=== PATIENT | male | born 1965 | race African-American/Black ===

== ENCOUNTER 2017-09-23 12:41 | Outpatient (CLI) | payer MEDICARE ==
--- NOTE | 2017-09-23 18:11 | ULT ---
BILATERAL UPPER EXTREMITY VENOUS DOPPLER ULTRASOUND FOR DIALYSIS ACCESS: 09/23/17 HISTORY: Renal failure. FINDINGS: Exam is limited. The left basilic and cephalic veins are not visualized. BRACHIAL ARTERY: 3.5 mm RADIAL ARTERY: 1.8 mm ULNA ARTERY: 1.8 mm RIGHT UPPER EXTREMITY The right cephalic vein is not visualized in the proximal arm. BRACHIAL ARTERY: 4.5 mm RADIAL ARTERY: 2 mm ULNAR ARTERY: 1.2 mm CEPHALIC VEIN Mid Arm: 1.5 mm Distal Arm: 1.3 mm Antecubital Fossa: 1.1 mm The right cephalic vein is not visualized in the forearm. BASILIC VEIN The right basilic vein is not visualized in the proximal and mid arm and in the entire forearm. Distal Arm: 1.4 mm Antecubital Fossa: 1.4 mm POS: [facility]
== END 2017-09-23 12:42 | disposition home or self-care (01) ==
LOC: ULT 12:41
PROVIDERS: ATTEND Internal Medicine Nephrology
DX: Z01.818 Encounter for other preprocedural examination (principal)
CPT/HCPCS: 93970; G0365

== ENCOUNTER 2017-11-26 09:54 | Day surgery (SDC) | payer MEDICARE ==
[~2017-11-26 09:54] MED LIST: Bupivacaine HCl 0.5%/Epinephrine 1:200,000/PF 30 ml Vial ONE
[2017-11-26 10:27] LABS: #Basophils 0.1 thou/uL (0.0-0.2); #Eosinphils 0.2 thou/uL (0.0-0.7); #Lymphocytes 2.6 thou/uL (1.20-3.40); #Monocytes 0.5 thou/uL (0.11-0.59); #Neutrophils 3.5 thou/uL (1.40-6.50); %Basophils 0.9 % (0.0-1.0); %Eosinophils 2.7 % (0.0-10.0); %Lymphocytes 37.8 % (21.0-51.0); %Monocytes 7.6 % (0.0-10.0); Hemoglobin 11.6 g/dL (14.0-18.0); Mean Corpuscular HGB CONC 31.5 g/dL (32.0-36.0); Mean Corpuscular Hemoglobin 27.1 pg (27.0-31.0); Mean Corpuscular Volume 86.1 fl (80.0-94.0); Mean Platelet Volume 8.7 fL (7.4-10.4); Platelet Count 253 thou/uL (130-400); RBC Distribution Width 16.4 % (11.5-14.5); Red Blood Cell (RBC) Count 4.29 mill/uL (4.70-6.10); White Blood Cell (WBC) Count 6.8 thou/uL (4.8-10.8)
[2017-11-26] MEDS ORDERED: Fentanyl 100 MCG/2 ML VIAL ONE (10:35)
[2017-11-26 10:56] LABS: Anion Gap 14 mmol/L (10-20); BUN (Urea Nitrogen) 22 mg/dL (8.9-20.6); Calc. Creatinine Clearance 0 mL/min (70-130); Calcium 9.3 mg/dL (7.8-10.44); Carbon Dioxide 27 mmol/L (22-29); Chloride 99 mmol/L (98-107); Estimated GFR-MDRD 11; Glucose 82 mg/dL (70-105); Potassium 3.8 mmol/L (3.5-5.1); Sodium 136 mmol/L (136-145)
[2017-11-26] MEDS ORDERED: CEFAZOLIN/Water 2 GM/20 ML SYRINGE ONE (11:00)
[2017-11-26] MEDS ORDERED: Bupivacaine/Epinephrine 0.25% 30 ML VIAL ONE (11:45)
[2017-11-26] MEDS ORDERED: Heparin 5,000 UNITS/ML VIAL ONE (11:45)
[2017-11-26] MEDS ORDERED: Protamine Sulfate 50 MG/5 ML VIAL ONE (11:45)
[2017-11-26] MEDS ORDERED: Ioversol 68 % 50 ML VIAL ONE (11:45)
--- NOTE | 2017-11-26 14:19 | PDOC.OP ---
Operative Note - Operative Note Operative Note: PROCEDURE: Right AV brachiobasilic fistula SURGEON: Ron Johansen M.D. DATE OF PROCEDURE: 11/26/2017 PREOPERATIVE DIAGNOSIS: Renal failure POSTOPERATIVE DIAGNOSIS: Renal failure HISTORY: Patient with renal failure currently using a tunneled hemodialysis catheter who requires permanent access. No lower arm veins were seen on preoperative ultrasound. PROCEDURE IN DETAIL: After informed consent was obtained and appropriate preoperative antibiotics administered, the patient was taken to the operating room and placed in the supine position and monitored anesthesia care was administered. A preoperative block had been performed by Anesthesia and the adequacy of block was confirmed. The arm was prepped and draped in a standard sterile fashion and carefully examined by ultrasound. No adequate veins could be located in the lower arm. In the upper arm the patient had a good caliber cephalic vein but this became sclerotic 6 cm above the antecubital fossa. The basilic vein appeared to be of adequate diameter throughout and there was enough length below the elbow that it was felt the vein could be mobilized over to the artery. Therefore an incision made lateral to the antecubital fossa between the basilic vein and brachial artery. Dissection was carried out to the basilic vein, which appeared to be of adequate quality and caliber to support a fistula. This was dissected free circumferentially for a distance long enough to mobilize over to the brachial artery, and was then ligated and divided distally, and spatulated with Baptiste scissors. This was serially interrogated with cardiac dilators and easily accepted up to 3.5 mm cardiac dilator. This was flushed with heparinized saline and clamped with a bulldog clamp. The brachial artery was then dissected free and found to be of adequate quality and caliber to support a fistula. Heparin was administered systemically and allowed to circulate for 3 minutes following which the artery was clamped proximally and distally. An anterior arteriotomy was created with an 11 blade scalpel and extended with Baptiste scissors. An end-to-side anastomosis created with a running 6-0 Prolene suture with excellent technical result. Prior to tying down the anastomosis, the inflow was released to flush the anastomosis. Flow was established first through the fistula and then through the distal brachial artery. Hemostasis at the site was confirmed, and an excellent thrill was felt in the basilic vein outflow and an excellent bruit was heard with Doppler as well up to the axilla. Hemostasis at the operative site was again confirmed and the patient had an excellent palpable radial pulse. The incision was closed with a running 3-0 subcutaneous and running 4-0 subcuticular Monocryl sutures. Dermabond dressings were placed and the patient was taken to the recovery room in good condition. Estimated blood loss was minimal. There were no complications. There were no specimens.
[2017-11-26] MEDS ORDERED: PHENYLEPHRINE-NS 100 MCG/ML 10 ML SYRINGE ONE (14:29)
[2017-11-26] MEDS ORDERED: PROPOFOL 200 MG/20 ML VIAL ONE (14:29)
[2017-11-26] MEDS ORDERED: Heparin 10,000 UNITS/ 10 ML VIAL ONE ×3 (14:29→15:12)
[2017-11-26] MEDS ORDERED: Sodium Chloride 0.9% 10 ML ONE (15:12)
== END 2017-11-26 15:38 | disposition home or self-care (01) ==
LOC: SDC 09:54
PROVIDERS: ATTEND Surgery
PROC: 03170ZD Bypass Right Brachial Artery to Upper Arm Vein, Open Approach (ICD-10-PCS; principal; 2017-11-26)
DX: I12.0 Hypertensive chronic kidney disease with stage 5 chronic kidney disease or end stage renal disease (principal); N18.6 End stage renal disease; I42.9 Cardiomyopathy, unspecified; Z79.899 Other long term (current) drug therapy; Z98.890 Other specified postprocedural states
CPT/HCPCS: 80048; 85025; 93005; 93010; J0670; J1644; J2704; J2720; J3010; Q9967

== ENCOUNTER 2018-01-14 10:27 | Day surgery (SDC) | payer MEDICARE ==
[2018-01-13 12:43] VITALS: BMI 15.5
[2018-01-14] MEDS ORDERED: Protamine Sulfate 50 MG/5 ML VIAL ONE (10:45)
[2018-01-14] MEDS ORDERED: Bupivacaine/Epinephrine 0.25% 30 ML VIAL ONE (10:45)
[2018-01-14] MEDS ORDERED: Heparin 5,000 UNITS/ML VIAL ONE (10:45)
[2018-01-14] MEDS ORDERED: Midazolam HCl 2 mg/2 ml Vial ONE (10:53)
[2018-01-14] MEDS ORDERED: Fentanyl 100 MCG/2 ML VIAL ONE (10:53)
[2018-01-14] MEDS ORDERED: Propofol 500 MG/50 ML VIAL ONE (10:54)
[2018-01-14] MEDS ORDERED: Ketamine 50 MG/ML VIAL ONE (10:54)
[2018-01-14 10:58] LABS: #Basophils 0.1 thou/uL (0.0-0.2); #Eosinphils 0.2 thou/uL (0.0-0.7); #Lymphocytes 2.1 thou/uL (1.20-3.40); #Monocytes 0.4 thou/uL (0.11-0.59); %Basophils 1.4 % (0.0-1.0); %Eosinophils 3.1 % (0.0-10.0); %Lymphocytes 37.1 % (21.0-51.0); %Monocytes 6.3 % (0.0-10.0); %Neutrophils 52.1 % (42.0-75.0); Hemoglobin 11.9 g/dL (14.0-18.0); Mean Corpuscular HGB CONC 31.2 g/dL (32.0-36.0); Mean Corpuscular Hemoglobin 27.1 pg (27.0-31.0); Mean Corpuscular Volume 86.9 fL (78.0-98.0); Mean Platelet Volume 9.4 fL (7.4-10.4); Platelet Count 203 thou/uL (130-400); RBC Distribution Width 14.8 % (11.5-14.5); White Blood Cell (WBC) Count 5.7 thou/uL (4.8-10.8)
[2018-01-14] MEDS ORDERED: CEFAZOLIN/Water 2 GM/20 ML SYRINGE ONE (11:03)
[2018-01-14 11:18] LABS: Anion Gap 15 mmol/L (10-20); BUN (Urea Nitrogen) 37 mg/dL (8.9-20.6); Calc. Creatinine Clearance 9 mL/min (70-130); Calcium 9.2 mg/dL (7.8-10.44); Carbon Dioxide 28 mmol/L (22-29); Chloride 101 mmol/L (98-107); Estimated GFR-MDRD 10; Glucose 90 mg/dL (70-105); Potassium 4.1 mmol/L (3.5-5.1); Sodium 140 mmol/L (136-145)
[2018-01-14] MEDS ORDERED: Bupivacaine HCl 0.5%/Epinephrine 1:200,000/PF 30 ml Vial ONE (14:52)
[2018-01-14] MEDS ORDERED: Heparin 10,000 UNITS/ 10 ML VIAL ONE ×2 (15:56→16:44)
[2018-01-14] MEDS ORDERED: PROPOFOL 200 MG/20 ML VIAL ONE (15:56)
--- NOTE | 2018-01-15 10:23 | OP ---
DATE OF PROCEDURE: 01/14/2018 PROCEDURE: Right brachial axillary AV fistula on 01/14/2018. PREOPERATIVE DIAGNOSIS: End-stage renal failure. POSTOPERATIVE DIAGNOSIS: End-stage renal failure. HISTORY: Mr. Nichols is a 52-year-old man with end-stage renal failure. He has a failed right brachi obasilic fistula, so the recommendation was made to proceed with right AV graft. DESCRIPTION OF PROCEDURE: After informed consent was obtained and appropriate preoperative antibioti cs administered, the patient was taken to the operating room. He was placed in the supine position a nd monitored anesthesia care was administered. A preoperative supraclavicular block had been placed and adequacy of the block was confirmed. On examination, the patient's upper arm cephalic vein appea red to be of good caliber and the antecubital area, so a sterile ultrasound was used to examine this; however, the vein became sclerotic in the mid section. So the decision was made to proceed with bra chial axillary graft placement as planned. An incision was made in the antecubital area overlying th e brachial artery just proximal to his previous graft location. Dissection was carried down through the subcutaneous tissues to the brachial artery, which was dissected free circumferentially just prox imal to the level of his previous graft. This appeared to be of good caliber and quality. Vessel lo ops were placed. Attention was then turned to the axillary vein. Dissection was carried down throug h the subcutaneous tissues overlying the palpable pulse and the axillary vein was identified. This w as of excellent caliber and quality and vessel loops were placed proximally and distally. A Azalea-Wi ck tunneler with a 12 mm tip was then brought up through the subcutaneous tissues just inferior to th e dermis from the antecubital to the axillary incisions. The 12 mm tip was exchanged for a 6 mm tip and the tapered end of a 4-7 mm Agustin graft was secured to the Azalea-Wick tunneler and brought down through the subcutaneous tunnel, taking care not to twist the graft. This was cut to the appropriate length with both ends angled for a wide anastomosis. The axillary vein was occluded proximally and distally with the vessel loops. An anterior venotomy created and extended with Baptiste scissors. The vein was flushed proximally and distally with heparinized saline and reoccluded with the vessel loops . An end-to-side anastomosis was created with a running 6-0 Prolene suture with excellent technical result. The venous inflow was released, flushing the graft following which venous outflow was restor ed. The graft was flushed with heparinized saline and clamped near the anastomosis to the axillary v ein. Attention was then turned to the arterial anastomosis. Heparin was administered systemically a nd allowed to circulate for 3 minutes following which the brachial artery was clamped proximally and distally. An anterior arteriotomy was created and then extended with Baptiste scissors and an end-to-si de anastomosis created with a running 6-0 Prolene suture with excellent technical result. Prior to t genie down the anastomosis, the venous inflow was released allowing back flushing of the anastomosis, the anastomosis was then secured and arterial inflow released establishing flow through the fistula f ollowing which distal flow through the arm was restored by releasing the distal brachial clamp. Ther e were some minor needle hole bleeding which rapidly stopped and there was an excellent thrill in the graft. Distal pulses and the hand were also present and hemostasis was obtained on both wounds usin g Bovie electrocautery. Surgicel was placed as a precaution into the subcutaneous tunnel and around the anastomosis following which both incisions were closed with 3-0 subcutaneous and 4-0 subcuticular sutures. Dermabond was placed and the patient was taken to recovery in good condition. Estimated b lood loss was minimal. There were no complications. There were no specimens.
== END 2018-01-14 17:05 | disposition home or self-care (01) ==
LOC: SDC 10:27
PROVIDERS: ATTEND Surgery
PROC: 03170JD Bypass Right Brachial Artery to Upper Arm Vein with Synthetic Substitute, Open Approach (ICD-10-PCS; principal; 2018-01-14)
DX: I12.0 Hypertensive chronic kidney disease with stage 5 chronic kidney disease or end stage renal disease (principal); N18.6 End stage renal disease; I42.9 Cardiomyopathy, unspecified; Z79.899 Other long term (current) drug therapy; Z79.82 Long term (current) use of aspirin
CPT/HCPCS: 36830; 80048; 85025; L8670; J0670; J1644; J2250; J2704; J2720; J3010

== ENCOUNTER 2018-02-03 09:05 | Day surgery (SDC) | payer MEDICARE ==
[2018-02-02 15:45] VITALS: BMI 16.9
[2018-02-03 10:53] LABS: Vancomycin, Random 7.4 ug/mL (See Comment)
[2018-02-03 10:55] LABS: ALT (SGPT) 15 U/L (8-55); AST (SGOT) 14 U/L (5-34); Albumin 3.8 g/dL (3.5-5.0); Alkaline Phosphatase 141 U/L (40-150); Anion Gap 17 mmol/L (10-20); BUN (Urea Nitrogen) 33 mg/dL (8.9-20.6); Bilirubin, Total 0.3 mg/dL (0.2-1.2); Calc. Creatinine Clearance 8 mL/min (70-130); Carbon Dioxide 28 mmol/L (22-29); Chloride 98 mmol/L (98-107); Estimated GFR-MDRD 8; Globulin 4.1 g/dL (2.4-3.5); Glucose 89 mg/dL (70-105); Potassium 5.5 mmol/L (3.5-5.1); Protein, Total 7.9 g/dL (6.0-8.3); Sodium 137 mmol/L (136-145)
[2018-02-03] MEDS ORDERED: CEFAZOLIN/Water 2 GM/20 ML SYRINGE ONE (11:01)
[2018-02-03 11:02] LABS: #Eosinphils 0.3 thou/uL (0.0-0.7); #Lymphocytes 2.3 thou/uL (1.20-3.40); #Monocytes 0.5 thou/uL (0.11-0.59); #Neutrophils 3.2 thou/uL (1.40-6.50); %Basophils 0.1 % (0.0-1.0); %Eosinophils 4.3 % (0.0-10.0); %Lymphocytes 36.4 % (21.0-51.0); %Monocytes 8.2 % (0.0-10.0); %Neutrophils 51.1 % (42.0-75.0); Hemoglobin 12.4 g/dL (14.0-18.0); Mean Corpuscular HGB CONC 31.5 g/dL (32.0-36.0); Mean Corpuscular Hemoglobin 27.6 pg (27.0-31.0); Mean Corpuscular Volume 87.7 fL (78.0-98.0); Mean Platelet Volume 8.8 fL (7.4-10.4); Platelet Count 228 thou/uL (130-400); RBC Distribution Width 15.4 % (11.5-14.5); Red Blood Cell (RBC) Count 4.47 mill/uL (4.70-6.10); White Blood Cell (WBC) Count 6.3 thou/uL (4.8-10.8)
[2018-02-03] MEDS ORDERED: Vancomycin HCl 750 MG in Sodium Chloride 0.9% 250 ML 250 ML IVPB SCH (11:15)
[2018-02-03] MEDS ORDERED: Sodium Chloride 0.9% 10 ML ONE (11:23)
[2018-02-03] MEDS ORDERED: Bupivacaine HCl 0.25%/Epi 0.0005/PF 10 ML VIAL FS ONE (11:23)
[2018-02-03] MEDS ORDERED: Heparin 10,000 UNITS/1 ML VIAL ONE (11:23)
[2018-02-03] MEDS ORDERED: Lidocaine 2% 10 ML INJ ONE (11:23)
[2018-02-03] MEDS ORDERED: Fentanyl 100 MCG/2 ML VIAL ONE (11:25)
[2018-02-03] MEDS ORDERED: Midazolam HCl 2 mg/2 ml Vial ONE (11:25)
[2018-02-03] MEDS ORDERED: PROPOFOL 20 ML ONE (11:25)
--- NOTE | 2018-02-03 13:09 | RAD ---
AP CHEST: History: Status post hemodialysis catheter placement. Date: 02-03-18 Comparison: 03-29-17 FINDINGS: AP chest demonstrates placement of a left jugular hemodialysis catheter, distal tip overlying the sup erior vena cava. The lungs are well aerated. No evidence of hemo or pneumothorax seen. No acute intra thoracic abnormality is seen. IMPRESSION: Placement of a left jugular hemodialysis catheter. POS: [facility]
[2018-02-03] MEDS ORDERED: hydrALAZINE 20 MG/ML VIAL ONE (13:14)
--- NOTE | 2018-02-05 18:53 | PDOC.OP ---
Operative Note - Operative Note Operative Note: PROCEDURE: Placement of left internal jugular tunneled hemodialysis catheter with ultrasound and fluoroscopic guidance. SURGEON: Ron Johansen M.D. DATE OF PROCEDURE: 02/03/2018 PREOPERATIVE DIAGNOSIS: Chronic renal failure. POSTOPERATIVE DIAGNOSIS: Chronic renal failure. HISTORY: Patient with positive blood cultures attributed to his right IJ hemodialysis catheter. This was removed in the clinic. 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 PROCEDURE: After informed consent was obtained and appropriate preoperative antibiotics were administered, the patient was taken to the Operating Room, placed in the supine position and monitored anesthesia care was administered. The neck and chest were prepped and draped in a standard sterile fashion and the patient placed in Trendelenburg position. A sterile ultrasound probe was used to identify the patent compressible left IJ vein which was accessed under direct ultrasound guidance. A wire was threaded through the needle and confirmed by ultrasound to be within the patent compressible vessel with the tip in the vena cava by fluoroscopy. Local anesthesia was infused to the skin and subcutaneous tissues of the leftt neck and chest. An infraclavicular incision was made and a catheter tunneled from the infraclavicular to the left IJ access site. The left IJ was sequentially dilated over the wire following which a dilator and sheath were placed over the wire and the dilator and wire removed leaving the sheath in place. The catheter was tunneled through the sheath which was then split and removed leaving the catheter in place. This was confirmed by fluoroscopy to be in good position in the superior vena cava with no kinking of the course of the catheter. Both ports easily aspirated dark venous nonpulsatile blood and easily flushed without resistance. Heparin was instilled to the quantity specified on the hub, and the hub was secured to the skin with 3-0 nylon sutures. The skin incision at the neck was closed in two layers with 4-0 Monocryl suture and Dermabond dressings were placed. The skin at the exit site was snugged up around the catheter with 4-0 Monocryl suture and Dermabond was placed there as well. Once the Dermabond was dry, a Biopatch and Tegaderm dressing was placed at the exit site. The patient was taken to Recovery in good condition. Estimated blood loss was minimal. There were no complications. There were no specimens.
== END 2018-02-03 14:00 | disposition home or self-care (01) ==
LOC: SDC 09:05
PROVIDERS: ATTEND Surgery
PROC: 02HV33Z Insertion of Infusion Device into Superior Vena Cava, Percutaneous Approach (ICD-10-PCS; principal; 2018-02-03)
PROC: B518YZA Fluoroscopy of Superior Vena Cava using Other Contrast, Guidance (ICD-10-PCS; 2018-02-03)
PROC: 02HV33Z Insertion of Infusion Device into Superior Vena Cava, Percutaneous Approach (ICD-10-PCS; 2018-02-03)
PROC: B548ZZA Ultrasonography of Superior Vena Cava, Guidance (ICD-10-PCS; 2018-02-03)
DX: I12.0 Hypertensive chronic kidney disease with stage 5 chronic kidney disease or end stage renal disease (principal); N18.6 End stage renal disease; I42.9 Cardiomyopathy, unspecified; Z79.899 Other long term (current) drug therapy; Z79.82 Long term (current) use of aspirin
CPT/HCPCS: 36558; 71045; 76000; 80053; 80202; 85025; C1752; C1769; 36416; 96374; A4216; J0360; J1644; J2250; J2704; J3010; J3370; J7050

== ENCOUNTER 2018-02-17 08:24 | Inpatient (IN) | payer MEDICARE ==
--- NOTE | 2018-02-17 08:42 | CT ---
HEAD CT WITHOUT CONTRAST: Date: 02/17/18 COMPARISON: 03/28/17. HISTORY: Previous left cerebral infarct. Seizure. Patient not following commands. FINDINGS: Malacic and gliotic change involving the left cerebrum, compatible with previous infarct. The overall degree and distribution has not changed and involve the left centrum semiovale, left cortez radiata, and left external capsule. Additional white matter hypodensities are identified, likely due to chron ic small vessel ischemic change. Stable configuration of the ventricular system. No parenchymal hemor rhage. No extra-axial hematoma. No midline shift. Patent basilar cisterns. Right cerebral cortical gr ay-white matter differentiation is preserved. Calvarium is intact. Adequate aeration of the sinuses a nd mastoid air cells. The left caudate nucleus and thalamus appear to be somewhat diminutive and are presumed to be sequelae of remote insult. IMPRESSION: 1. No acute intracranial process. 2. Findings compatible with remote left cerebral infarction, unchanged. Results of study discussed with Dr. Caraballo on 02/17/18 at 0835 hours. CODE CR. POS: [facility]
[2018-02-17 09:31] LABS: #Eosinphils 0.1 thou/uL (0.0-0.7); #Lymphocytes 1.1 thou/uL (1.20-3.40); #Monocytes 0.4 thou/uL (0.11-0.59); #Neutrophils 3.1 thou/uL (1.40-6.50); %Basophils 0.8 % (0.0-1.0); %Eosinophils 1.7 % (0.0-10.0); %Lymphocytes 23.4 % (21.0-51.0); %Neutrophils 65.1 % (42.0-75.0); Hemoglobin 10.9 g/dL (14.0-18.0); Mean Corpuscular HGB CONC 30.8 g/dL (32.0-36.0); Mean Corpuscular Hemoglobin 27.3 pg (27.0-31.0); Mean Corpuscular Volume 88.8 fL (78.0-98.0); Mean Platelet Volume 9.7 fL (7.4-10.4); Platelet Count 149 thou/uL (130-400); RBC Distribution Width 15.3 % (11.5-14.5); Red Blood Cell (RBC) Count 3.98 mill/uL (4.70-6.10); White Blood Cell (WBC) Count 4.8 thou/uL (4.8-10.8)
[2018-02-17 09:34] LABS: INR-International Normal Ratio 1.1; PTT 26.2 SEC (22.9-36.1); Prothrombin Time 13.8 SEC (12.0-14.7)
[2018-02-17 09:50] LABS: ALT (SGPT) 12 U/L (8-55); AST (SGOT) 13 U/L (5-34); Albumin 3.5 g/dL (3.5-5.0); Alkaline Phosphatase 141 U/L (40-150); Anion Gap 18 mmol/L (10-20); BUN (Urea Nitrogen) 20 mg/dL (8.9-20.6); Bilirubin, Total 0.3 mg/dL (0.2-1.2); Calc. Creatinine Clearance 0 mL/min (70-130); Calcium 9.2 mg/dL (7.8-10.44); Carbon Dioxide 27 mmol/L (22-29); Chloride 100 mmol/L (98-107); Estimated GFR-MDRD 9; Globulin 3.5 g/dL (2.4-3.5); Glucose 107 mg/dL (70-105); Potassium 4.2 mmol/L (3.5-5.1); Sodium 141 mmol/L (136-145)
--- NOTE | 2018-02-17 10:01 | RAD ---
CHEST ONE VIEW: History: Dialysis patient. Stroke alert. Comparison: 01-24-18 FINDINGS: Stable right sided hemosplit dialysis catheter. Normal cardiac silhouette. Lungs are pleural spaces a re clear. No pneumothorax or osseous abnormality. IMPRESSION: No acute cardiopulmonary process. POS: [facility]
--- NOTE | 2018-02-17 10:02 | CT ---
CT ANGIOGRAM OF HEAD CT ANGIOGRAM OF NECK: Date: 02/17/18 HISTORY: Seizure. Altered mental status. Evaluate for stroke. COMPARISON: None. TECHNIQUE: CT angiogram of the head and neck are performed in the axial plane. Three-dimensional reformatted ami ges are submitted for interpretation. FINDINGS: There appears to be preservation of cortical mathias-white mattered differentiation on postcontrast head CT. Changes of remote left cerebral infarct are again noted. Bilateral ocular lenses are appropriately located. Both globes are intact. Retrobulbar fat is preserv ed. Symmetric attenuation of the optic nerves and ocular rectus muscles. Aerodigestive tract is patent. There is mild narrowing of the hypopharynx, likely due to lymphoid tis golden hyperplasia. Discrete mass is not appreciated. Evaluation is limited by dental amalgam artifact. The midline fatty raphe of the tongue does appear to be preserved. The supraglottic, glottic, and subglottic larynx are unremarkable. Symmetric attenuation of the sternocleidomastoid muscles, parotid glands, and submandibular gland. Unremarkable thyroid gland. Calcifications in right thyroid lobe are noted. No evidence of lymphadenopathy by size criteria. There is no prevertebral soft tissue swelling. Cervical spine vertebral body height is maintained. No fracture. Straightening of normal cervical lordosis is presumed to be positional. Upper mediastinum and lung apices are unremarkable. Thoracic aorta has an overall normal caliber. No periaortic fat stranding. Right Carotid: The origin of the right carotid artery is unremarkable. The right common carotid artery, carotid bifu rcation, and internal carotid artery have appropriate enhancement and luminal diameter. No significan t stenosis based upon NASCET criteria. Left Carotid: The origin of the left carotid artery is unremarkable. The left common carotid artery, carotid bifurc ation, and internal carotid artery have appropriate enhancement and luminal diameter. No significant stenosis based upon NASCET criteria. Bilateral subclavian arteries are unremarkable. Cervical vertebral arteries are patent throughout their course in the neck. The left vertebral artery is dominant. CT ANGIOGRAM HEAD: There is symmetric enhancement and luminal diameter of the distal cervical and intracranial internal carotid arteries. Anterior Circulation: Congenitally diminutive right A1 segment. Left A1 segment is unremarkable. Both A2 segments have appr opriate enhancement proximally. Left and right M1 segments are unremarkable. Symmetric enhancement an d luminal diameter. Proximal MCA branches are essentially unremarkable. The overall degree of branche s in the left MCA distribution is slightly less than the contralateral side, compatible with history of remote infarct. Posterior Circulation: Right PICA artery origin is limited in evaluation. Left PICA artery origin is unremarkable. Both vert ebral arteries supply a normal caliber basilar artery. The left and right P1 segments have symmetric enhancement and luminal diameter. IMPRESSION: Unremarkable CT angiogram of head and neck. No evidence of significant stenosis based upon NASCET cri teria. Results of study discussed with Dr. Caraballo on 02/17/17 at 0907 hours. CODE CR. POS: [facility]
[2018-02-17 10:04] LABS: CKMB 0.3 ng/mL (0-6.6); Troponin I Less than 0.010 ng/mL (< 0.028)
[2018-02-17] MEDS ORDERED: Aspirin 300 MG Suppository ONE (10:22)
[2018-02-17] MEDS ORDERED: ISOVUE-370 76%-LOCM 1 ML ONE (11:05)
[2018-02-17] MEDS ORDERED: Ondansetron HCl/PF 4 MG/2 ML Vial ONE (11:15)
[2018-02-17] MEDS ORDERED: Nitroglycerin 0.4 MG TAB (25 Tab Bottle) PO PRN (11:22)
[2018-02-17] MEDS ORDERED: Acetaminophen 325 MG TAB PO PRN (11:22)
[2018-02-17] MEDS ORDERED: Calcium Carbonate 500 MG ChewTAB PO PRN (11:22)
[2018-02-17] MEDS ORDERED: Ondansetron ODT 4 MG TAB PO PRN (11:22)
[2018-02-17] MEDS ORDERED: Senokot 8.6 MG TAB PO PRN (11:22)
[2018-02-17] MEDS ORDERED: Lorazepam 2 MG/ML VIAL SLOW IVP PRN (11:26)
[2018-02-17] MEDS ORDERED: hydrALAZINE 20 MG/ML VIAL SLOW IVP PRN (11:26)
[2018-02-17] MEDS ORDERED: Loratadine 10 MG TAB PO PRN (11:26)
--- NOTE | 2018-02-17 11:37 | HP ---
DATE OF ADMISSION: 02/17/2018 PRIMARY CARE PHYSICIAN: Dr. Kyle. PRIMARY SENIOR SAS PROGRAMMER: Dr. Roland Patel. PRIMARY NEUROLOGIST: None. CHIEF COMPLAINT: Altered mentation. 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 History obtained from the family at the bedside. Please note that the family members who were presen t now were not present at onset of symptoms. The patient was found to have altered mentation along with seizure-like activity. No details availab le. There was no tongue biting or incontinence reported. He was not following commands. He was non verbal. No new focal deficit was reported. No fever, chills, cough, shortness of breath, wheezing, skin rash, dysuria, hematuria or urgency reported. In the emergency room, initial vital signs showed temperature 98.3, respiration of 17, pulse rate of 85, blood pressure 176/106 with O2 saturation 98% on room air. [facility] scan of the brain was negative for acute findings. CT angiogram of the brain was ne gative. PAST MEDICAL HISTORY: 1. End-stage renal disease, on hemodialysis Thursday, Thursday, Thursday per Dr. Roland Patel. 2. Seizure disorder, currently on Dilantin and Keppra. 3. History of left middle cerebral artery distribution cerebrovascular accident with hemorrhagic con version. The patient also had a PEG tube placed at one time that has been discontinued. 4. History of encephalopathy secondary to urinary tract infection in 03/2017. PAST SURGICAL HISTORY: 1. Dialysis catheter. 2. Recent right arm fistula. 3. PEG tube placement with subsequent removal. 4. Cystoscopy for urethral stricture and bilateral hydronephrosis in 2013. ALLERGIES: No known drug allergies. CURRENT HOME MEDICATIONS: Confirmed with the medication bottles at the bedside. Keppra 500 mg twice a day, Renvela 3 tablets 3 times a day, Dilantin 300 mg daily, gabapentin 100 mg 3 times daily, Proz ac 20 mg daily, baclofen 10 mg 3 times daily. SOCIAL HISTORY: Patient currently lives at home with his family. He is able to ambulate with the he lp of a walker with some assistance. He is able to swallow regular consistencies. He make small david unt of urine. He is able to recognize his family members and communicate well per family report. FAMILY HISTORY: Positive for hypertension. REVIEW OF SYSTEMS: Cannot be obtained from the patient due to current cognitive status. PHYSICAL EXAMINATION: VITAL SIGNS: As discussed above. GENERAL: A 52-year-old male in no apparent distress. Resting comfortably. Opens eyes to commands; however, does not follow direction. HEENT: Head is atraumatic, normocephalic. Sclerae are anicteric. Patient did not let me examine hi s pupils. He also did not open his mouth. NECK: Supple, no JVD, no carotid bruit. LUNGS: Clear to auscultation bilaterally, no wheezing, rales or rhonchi. HEART: S1, S2 present. Regular rate and rhythm. No heaves or pulsation. ABDOMEN: Soft, nontender, bowel sounds present. EXTREMITIES: No edema or calf tenderness. There is right upper extremity edema which is chronic per family report. SKIN: Warm and dry. LYMPH NODES: No palpable lymph nodes in the neck. NEUROLOGIC: Examination could not be reliably done due to current mentation. The patient has flacci d weakness on the right upper and right lower extremity. There was a normal tone on the left. Refle xes were hyper on the right and hypo on the left. Sensory examination could not be done. Gait was n ot assessed. PSYCHIATRIC: As discussed above. PERIPHERAL VASCULAR: Radial pulses palpable bilaterally. MUSCULOSKELETAL: No joint swelling or tenderness. LABORATORY FINDINGS: 1. CBC showed WBC 4.8 with hemoglobin 10.9, hematocrit 35.3 and platelet 149. 2. PT, INR, PTT normal range. 3. Chemistry showed sodium 141, potassium 4.2, chloride 100, bicarb 27, BUN 20, creatinine 7.6. 4. Troponin was negative. IMAGING DATA: Chest x-ray by my review was negative for infiltrate. EKG by my review showed sinus r hythm without significant ST-T wave changes. CT scan of the brain by my review was negative for acut e CVA. IMPRESSION: 1. Toxic metabolic encephalopathy of unclear etiology. Possibilities include seizure versus acute C [facility]. We will rule out infectious etiology. Patient was shaking at the time of onset of his symptoms per family report. 2. End-stage renal disease on hemodialysis. 3. History of left middle cerebral artery distribution cerebrovascular accident with hemorrhagic con version with residual right-sided weakness. Please note that patient is not on low dose aspirin. 4. Seizure disorder. PLAN: Patient will be monitored in the stroke unit. We will get frequent neuro checks. Aspirin jeffrey l be given rectally. We will consult Neurology, Dr. Wild. We will check Dilantin and Keppra level a nd resume them accordingly. We will consult Dr. Roland Patel for maintenance hemodialysis. We jeffrey l resume his medications once able to tolerate p.o. Plan of care was discussed with the family in detail and they stated understanding.
[2018-02-17] MEDS: Sodium Chloride 0.9% 1,000 ML IV SCH (12:24)
[2018-02-17] MEDS ORDERED: Heparin 10,000 UNITS/ 10 ML VIAL ONE (15:58)
[2018-02-17] MEDS ORDERED: Fosphenytoin Sodium 750 MG in Sodium Chloride 0.9% 50 ML IVPB SCH (17:00)
[2018-02-17] MEDS ORDERED: Famotidine/PF 20 mg/2ml Vial SLOW IVP SCH (21:00)
[2018-02-17] MEDS: Docusate 100 MG CAP PO SCH (22:10)
[2018-02-17] MEDS: Atorvastatin Calcium 10 MG TAB PO SCH (22:10)
[2018-02-17] MEDS: Acetaminophen 650 MG Suppository PR PRN (22:51)
[2018-02-17] MEDS: Ondansetron HCl/PF 4 MG/2 ML Vial IVP PRN (22:51)
[2018-02-17] MEDS: Heparin 5,000 UNITS/ML VIAL SC SCH (22:52)
--- NOTE | 2018-02-18 05:02 | CON ---
DATE OF CONSULTATION: 02/17/2018 REFERRING PROVIDER: Dr. Maverick Tom. REASON FOR CONSULTATION: Altered mental status. HISTORY OF PRESENT ILLNESS: Mr. Nichols is a 52-year-old -[place] male who has been consulted for evaluation of altered mental status. History is very limited as patient is unable to provide an d there are no family member present at bedside, thus most of the history is obtained from the patien t's dictated H&P note. Apparently, the patient has a history of left middle cerebral artery distribu tion ischemic infarct with hemorrhagic conversion with residual right-sided weakness, seizure disorde r, end-stage renal disease on dialysis who presented with the changes in mentation. Apparently, the patient's family had brought him. He was found to have altered mentation with a questionable seizure -like activity. He has been admitted for further workup of this change in mentation. Past medical history, past surgical history, family history, social history, current medications, all ergies are reviewed there as dictated H&P note done by Dr. Maverick Tom. REVIEW OF SYSTEMS: Unable to perform. PHYSICAL EXAMINATION: VITAL SIGNS: Blood pressure 165/96, pulse of 81, temperature of 98, respirations 16, O2 sats 96% on room air. GENERAL: Thin-appearing -[place]ian male resting in bed in no apparent distress. RESPIRATORY: Clear to auscultation bilaterally. CARDIOVASCULAR: Regular rate and rhythm. NEUROLOGIC: Mental status: The patient is awake and alert, but nonresponsive. He does not follow a ny commands. He does not converse. Cranial nerves: Pupils are 3 mm and reactive. Visual lerma ap pear full to threat. Face is symmetric. Motor exam showed normal tone and bulk. He withdraws to pa in in both upper and lower extremities; however, he does not follow any commands and does not partici [place] in the strength evaluation. LABORATORY DATA: Reviewed, which included CBC, coag panel, CMP, and Dilantin level and Keppra level. Hemoglobin of 10.9, hematocrit of 35.3 and BUN of 20. Creatinine of 7.6. Dilantin level of 6.7. Keppra level of 24.6, otherwise unremarkable. IMAGING STUDIES: CT head without contrast was reviewed, which showed no acute intracranial abnormali ties. CT angiogram of the head and neck were reviewed, which showed no acute intracranial or extracr anial vascular abnormality. IMPRESSION: 1. Altered mental status, likely toxic metabolic encephalopathy. 2. Possible seizure. 3. Prior left middle cerebral artery distribution ischemic infarct. PLAN: Mr. Nichols is a pleasant 52-year-old -[place] male with multiple medical problems who presented with the altered mentation and possible seizure-like activity. At this time, I would recom mend changing his Dilantin level to 200 mg b.i.d. I would continue his Keppra 500 mg b.i.d. Continue supportive care. Thank you for consultation.
[2018-02-18 05:03] LABS: #Basophils 0.1 thou/uL (0.0-0.2); #Lymphocytes 1.5 thou/uL (1.20-3.40); #Monocytes 0.7 thou/uL (0.11-0.59); #Neutrophils 8.8 thou/uL (1.40-6.50); %Basophils 0.6 % (0.0-1.0); %Eosinophils 0.4 % (0.0-10.0); %Lymphocytes 13.4 % (21.0-51.0); %Neutrophils 79.5 % (42.0-75.0); Hemoglobin 11.1 g/dL (14.0-18.0); Mean Corpuscular HGB CONC 31.3 g/dL (32.0-36.0); Mean Corpuscular Hemoglobin 27.3 pg (27.0-31.0); Mean Corpuscular Volume 87.2 fL (78.0-98.0); Mean Platelet Volume 8.9 fL (7.4-10.4); Platelet Count 183 thou/uL (130-400); RBC Distribution Width 15.3 % (11.5-14.5); Red Blood Cell (RBC) Count 4.05 mill/uL (4.70-6.10)
[2018-02-18 05:24] LABS: Anion Gap 15 mmol/L (10-20); BUN (Urea Nitrogen) 12 mg/dL (8.9-20.6); Calc. Creatinine Clearance 15 mL/min (70-130); Calcium 9.1 mg/dL (7.8-10.44); Carbon Dioxide 29 mmol/L (22-29); Cardiac Risk 2.9 (Less than 4.5); Chloride 100 mmol/L (98-107); Cholesterol 173 mg/dl (< 200 Desired); Estimated GFR-MDRD 15; Glucose 95 mg/dL (70-105); HDL Cholesterol 59 mg/dL (>60 Neg Risk); LDL Cholesterol, Calculated 100 mg/dL; Potassium 4.6 mmol/L (3.5-5.1); Sodium 139 mmol/L (136-145); Triglycerides 68 mg/dL (Less than 150)
[2018-02-18 05:36] LABS: HBSAg Index 0.21 S/CO (0-0.99); Hep B Surf Ag Non-Reactive S/CO (NonReactive)
[2018-02-18] MEDS: Acetaminophen 650 MG Suppository PR PRN (07:18)
[2018-02-18] MEDS ORDERED: Sevelamer Carbonate 800 MG TAB PO SCH (08:00)
[2018-02-18] MEDS: Sodium Chloride 0.9% 1,000 ML IV SCH (08:42)
[2018-02-18] MEDS: Heparin 5,000 UNITS/ML VIAL SC SCH ×2 (08:44→21:28)
[2018-02-18] MEDS ORDERED: Baclofen 10 MG TAB PO SCH (09:00)
[2018-02-18] MEDS ORDERED: Aspirin 300 MG Suppository PR SCH (09:00)
[2018-02-18] MEDS ORDERED: Fosphenytoin Sodium 200 MG in Sodium Chloride 0.9% 50 ML IVPB SCH (09:00)
[2018-02-18] MEDS: Sevelamer Carbonate 800 MG TAB PO SCH ×5 (12:28→17:44)
[2018-02-18] MEDS: Gabapentin 100 MG CAP PO SCH ×4 (12:30→21:29)
[2018-02-18] MEDS: Baclofen 10 MG TAB PO SCH ×4 (12:30→21:28)
[2018-02-18] MEDS: FLUoxetine HCl 20 MG CAP PO SCH (12:30)
[2018-02-18] MEDS: Docusate 100 MG CAP PO SCH ×2 (12:30→21:31)
--- NOTE | 2018-02-18 13:10 | PDOC.PN ---
- Subjective Encounter Start Date: 02/18/18 Encounter Start Time: 09:00 Patient seen and examined for Encephalopathy. Mentation imroving. No new complaints. No overnight events - Objective MAR Reviewed: Yes Vital Signs & Weight: Vital Signs (12 hours) Temp Pulse Pulse Pulse Resp BP BP 02/18/18 12:00 98.7 F 84 16 02/18/18 09:44 83 86 169/104 H 153/92 H 02/18/18 07:39 98.8 F 90 16 02/18/18 03:37 100.0 F H 99 16 BP BP Pulse Ox 02/18/18 12:00 191/109 H 94 L 02/18/18 09:44 02/18/18 07:39 157/92 H 97 02/18/18 03:37 143/92 H 94 L I&O: 02/17/18 02/18/18 02/19/18 06:59 06:59 06:59 Intake Total 450 Balance 450 Result Diagrams: 02/18/18 03:56 02/18/18 03:56 Radiology Reviewed by me: Yes (CXR - Neg) EKG Reviewed by me: Yes (Tele SR) Phys Exam - Physical Examination Constitutional: NAD Neck: no JVD Respiratory: no wheezing, no rales, no rhonchi Symmetrical Cardiovascular: RRR, no rub no heaves/pulsations Gastrointestinal: soft, non-tender, no distention, positive bowel sounds Musculoskeletal: no edema, pulses present Neuro - No new focal deficits on limited exam Dx/Plan - Plan DVT proph w/heparin, DVT proph w/SCDs IMPRESSION: 1. Toxic metabolic encephalopathy - prob due to seizure, r/o infectious etio UA, Urine culture, Empiric Atbx - IV Ceftriaxone, ID consult due to new fever with some leucocytosis, AM labs, Blood culture neg 2. Seizure disorder Cont Keppra, Dilantin dose increased to 200 mg BID 3. Swallow dys - resolved 4. Elevated BP - no h/o HTN Will monitor, Add PRN HTN meds 5. Depression Cont Prozac Review of Systems - Review of Systems Respiratory: negative: Cough, Dry, Shortness of Breath, Hemoptysis, SOB with Excertion, Pleuritic Pain, Sputum, Wheezing Cardiovascular: negative: chest pain, palpitations, orthopnea, paroxysmal nocturnal dyspnea, edema, light headedness, other - Medications/Allergies Allergies/Adverse Reactions: Allergies Allergy/AdvReac Type Severity Reaction Status Date / Time No Known Allergies Allergy Verified 02/02/18 15:45 Medications: Current Medications Acetaminophen (Tylenol) 650 mg [place] Q4H PRN PRN Reason: Headache/Fever or Pain Last Admin: 02/18/18 07:18 Dose: 650 mg Acetaminophen (Tylenol) 650 mg PO Q4H PRN PRN Reason: Headache/Fever or Pain Aspirin (Ecotrin) 81 mg PO DAILY [facility] Atorvastatin Calcium (Lipitor) 10 mg PO HS [facility] Last Admin: 02/17/18 22:10 Dose: Not Given Baclofen (Lioresal) 10 mg PO TID [facility] Last Admin: 02/18/18 12:30 Dose: 10 mg Calcium Carbonate (Tums) 1,000 mg PO Q4H PRN PRN Reason: Heartburn or Indigestion Docusate Sodium (Colace) 100 mg PO BID [facility] Last Admin: 02/18/18 12:30 Dose: 100 mg Famotidine (Pepcid) 20 mg PO QPM [facility] Fluoxetine HCl (Prozac) 20 mg PO DAILY [facility] Last Admin: 02/18/18 12:30 Dose: 20 mg Gabapentin (Neurontin) 100 mg PO TID [facility] Last Admin: 02/18/18 12:30 Dose: 100 mg Heparin Sodium (Porcine) (Heparin) 5,000 units SC BID [facility] Last Admin: 02/18/18 08:44 Dose: 5,000 units Hydralazine HCl (Apresoline) 10 mg SLOW IVP Q4H PRN PRN Reason: SBP > 180 Ceftriaxone Sodium 1 gm/ (Sodium Chloride) 100 mls @ 200 mls/hr IVPB Q24HR [facility] Levetiracetam (Keppra) 500 mg PO BID [facility] Loratadine (Claritin) 10 mg PO DAILYPRN PRN PRN Reason: Sinus Symptoms Lorazepam (Ativan) 1 mg SLOW IVP Q15MIN PRN PRN Reason: Seizures Nitroglycerin (Nitrostat) 0.4 mg PO Q5MIN PRN PRN Reason: Chest Pain Ondansetron HCl (Zofran Odt) 4 mg PO Q6H PRN PRN Reason: Nausea/Vomiting Ondansetron HCl (Zofran) 4 mg IVP Q6H PRN PRN Reason: Nausea/Vomiting Last Admin: 02/17/18 22:51 Dose: 4 mg Phenytoin Sodium (Dilantin Er) 200 mg PO BID [facility] Senna (Senokot) 2 tab PO HSPRN PRN PRN Reason: Constipation Sevelamer Carbonate (Renvela) 2,400 mg PO TID-WM [facility] Last Admin: 02/18/18 12:29 Dose: 2,400 mg Sodium Chloride (Flush - Normal Saline) 10 ml IVF Q12HR [facility] Last Admin: 02/18/18 09:21 Dose: Not Given Sodium Chloride (Flush - Normal Saline) 10 ml IVF PRN PRN PRN Reason: Saline Flush
[2018-02-18] MEDS: cefTRIAXone\\ROCEPHIN 1 GM in Sodium Chloride 0.9% 100 ML IVPB SCH ×2 (14:44→14:45)
[2018-02-18] MEDS ORDERED: levETIRAcetam 500 mg/5 ml Oral Solution PO SCH (21:00)
[2018-02-18] MEDS ORDERED: levETIRAcetam 500 MG TAB PO SCH (21:00)
--- NOTE | 2018-02-18 21:17 | ULT ---
BILATERAL RENAL ULTRASOUND ULTRASOUND URINARY BLADDER 02/18/18 HISTORY: Fever, previous hydronephrosis. FINDINGS: The right kidney measures 8.4 cm in length and the left kidney measures 8.1 cm in length. There is a 1.5 cm cyst on the right and a 1.2 cm cyst on the left. No hydronephrosis seen. There is thickening in the wall of the urinary bladder. The prostate is enlarged measuring 4.6 x 4.5 x 3.1 cm. There is a hypoechoic area posterior to the urinary bladder 6.2 x 5.3 x 2.4 cm. IMPRESSION: 1. Bilateral renal cysts without hydronephrosis. 2. Bladder wall thickening. 3. Prostatic enlargement. 4. Nonspecific hypoechoic area posterior to the bladder measuring 6.2 x 5.3 x 2.4 cm. Evaluation with contrast enhanced CT scan would be helpful. POS: SHRUTI
[2018-02-18] MEDS: Atorvastatin Calcium 10 MG TAB PO SCH (21:28)
[2018-02-18] MEDS: Fosphenytoin Sodium 200 MG in Sodium Chloride 0.9% 50 ML IVPB SCH (22:16)
--- NOTE | 2018-02-19 00:56 | CON ---
DATE OF CONSULTATION: 02/18/2018 REASON FOR CONSULTATION: Possible sepsis. 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 The patient had required gastrostomy tube feedings for a while and this has been discontinued. He also has a history of invasive UTI in 03/2017. At this time, he was admitted with altered mental status by family members, they were not present at the onset of symptoms. He did hav e some seizure-like activity subsequently reported. On arrival, he was nonverbal. There had been no reported fever or chills. Initial temperature 98.3, respiratory rate 17, pulse 85, blood pressure 1 76/106, O2 sat 98%. He had an emergency CT angiogram, which was not remarkable. Currently, Mr. Maia reynolds is awake, but he is unable to give adequate replies to questions. He is very limited utterances a nd seems to have quite severe expressive aphasia. There has been no reported diarrhea and he is anur ic. No bleeding. No respiratory symptoms. PAST MEDICAL HISTORY: End-stage renal disease of uncertain etiology, prior left middle cerebral raj ry distribution cerebrovascular accident with quite severe neurological impairment and temporary requ irement for gastrostomy tube feedings, seizure disorder on Dilantin and Keppra. PAST SURGICAL HISTORY: Includes dialysis catheter placement, right arm fistula placement, gastrostom y tube placement and removal, and cystoscopy for management of urethral stricture with bilateral hydr onephrosis in 2013. CURRENT MEDICATIONS: Includes Tylenol, Ecotrin, Lipitor, Lioresal, Tums, ceftriaxone, docusate, famo tidine, Prozac, Neurontin, heparin, Claritin, Nitrostat, Zofran, Dilantin. FAMILY HISTORY: Hypertension. ALLERGY HISTORY: None. PHYSICAL EXAMINATION: VITAL SIGNS: T-max 100, currently 98.5, blood pressure 160/96, pulse 83, respirations 16, O2 sat 96% . SKIN: Shows the tunneled-hemodialysis catheter, left IJ position with no inflammatory changes. Jamee ent has a peripheral IV access, does not have a Llanos catheter. HEENT: Ocular movements are conjugate. He would not open his mouth after request. NECK: Supple. LUNGS: With symmetric air entry with no obvious wheezing or crackles. HEART: S1, S2. Soft aortic murmur. Regular rate. ABDOMEN: Flat, soft. No bladder distention. No ascites noted. EXTREMITIES: I could not get him to follow commands to test his extremity movements at this time. LABORATORY DATA: White cell count was 4.8 and up to 11, hemoglobin 10.9, platelets 149 with 65% neut rophils, 23% lymphocytes. The percentage of neutrophils went up to 79. INR 1.1. Sodium 141, creati nine 7.6. Liver profile was normal. Albumin is 3.5. Phenytoin level 6.7, Keppra level was 24.6. IMAGING STUDIES: Include a chest x-ray, no acute cardiopulmonary process in the brain angiogram with no abnormalities noted. ASSESSMENT: 1. Prior cerebrovascular accident with a history of severe neurological residual impairment. 2. Possible recurrent seizure activity with subtherapeutic Dilantin level. 3. History of urethral stricture with prior evidence of hydronephrosis with a stricture dilation. DISCUSSION: The differential diagnosis includes inflammatory process related to persistence of urina ry tract obstruction versus adrenergic response related to the seizure activity with low-grade temper ature elevation related to the increased fibrogenic response associated with seizures. Transient rickie teremia does not demonstrate yet, although we are still waiting on the results of blood cultures. Si nce he does have a tunneled hemodialysis catheter, there is always a concern with a catheter-associat ed bacteremia and cultures will have to be followed until final results are given. We will obtain an ultrasound of the abdomen to verify that he does not have hydronephrosis or urinary bladder distenti on.
[2018-02-19] MEDS ORDERED: cloNIDine 0.1 MG TAB PO PRN (09:56)
[2018-02-19] MEDS: Baclofen 10 MG TAB PO SCH ×3 (10:52→21:55)
[2018-02-19] MEDS: Sevelamer Carbonate 800 MG TAB PO SCH ×3 (10:52→17:36)
[2018-02-19] MEDS: Docusate 100 MG CAP PO SCH ×2 (10:52→21:55)
[2018-02-19] MEDS: Gabapentin 100 MG CAP PO SCH ×3 (10:53→21:56)
[2018-02-19] MEDS ORDERED: Heparin 1,000 UNITS/ML VIAL ONE (11:11)
--- NOTE | 2018-02-19 14:01 | PDOC.PN ---
- Subjective Encounter Start Date: 02/19/18 Encounter Start Time: 09:00 Patient seen and examined for AMS. Undergoing dialysis. Unable to get urine sample. No new complaints. No overnight events. Dilantin and Keppra changed to IV by night physician. - Objective MAR Reviewed: Yes Vital Signs & Weight: Vital Signs (12 hours) Temp Pulse Resp BP Pulse Ox 02/19/18 12:00 97.3 F L 96 20 105/72 95 02/19/18 08:10 97.4 F L 81 16 100 02/19/18 07:38 97.4 F L 81 16 159/97 H 100 02/19/18 04:00 97.5 F L 81 18 177/104 H 98 Weight Admit Weight 131 lb Weight 131 lb 6 oz I&O: 02/18/18 02/19/18 02/20/18 06:59 06:59 06:59 Intake Total 450 782 Balance 450 782 Result Diagrams: 02/18/18 03:56 02/18/18 03:56 Additional Labs: Microbiology 02/17/18 10:16 Venous blood - Left Hand Blood Culture - Preliminary Specimen has been received and culture in progress. No Growth to date. 02/17/18 10:16 Venous blood - Left Hand Blood Culture - Preliminary NO GROWTH AT 48 HOURS 02/17/18 09:18 Venous blood - Left Hand Blood Culture - Preliminary Specimen has been received and culture in progress. No Growth to date. 02/17/18 09:18 Venous blood - Left Hand Blood Culture - Preliminary NO GROWTH AT 48 HOURS Radiology Reviewed by me: No (Echo - LVH, normal EF, diastolic dysfunction) EKG Reviewed by me: Yes (Tele SR) Phys Exam - Physical Examination Constitutional: NAD Respiratory: no wheezing, no rhonchi Cardiovascular: RRR, no rub Gastrointestinal: soft, non-tender, positive bowel sounds Musculoskeletal: no edema Neuro - No new focal deficits. Dx/Plan - Plan DVT proph w/heparin, DVT proph w/SCDs IMPRESSION: 1. Toxic metabolic encephalopathy - prob due to seizure and UTI - Unable to sent UA/urine culture - straight catheter attempted. Empiric Atbx - IV Ceftriaxone, ID consult, AM labs, Blood culture neg 2. Seizure disorder Cont Keppra, Dilantin dose increased to 200 mg BID 3. Swallow dys - resolved 4. Elevated BP - no h/o HTN Will monitor, Add PRN HTN meds 5. Depression Cont Prozac 6. h/o Urethral strictures. USG showed bladder thickening Will arrange Urology follow up as outpt Review of Systems - Medications/Allergies Allergies/Adverse Reactions: Allergies Allergy/AdvReac Type Severity Reaction Status Date / Time No Known Allergies Allergy Verified 02/02/18 15:45 Medications: Current Medications Acetaminophen (Tylenol) 650 mg [place] Q4H PRN PRN Reason: Headache/Fever or Pain Last Admin: 02/18/18 07:18 Dose: 650 mg Acetaminophen (Tylenol) 650 mg PO Q4H PRN PRN Reason: Headache/Fever or Pain Last Admin: 02/19/18 10:45 Dose: 650 mg Aspirin (Ecotrin) 81 mg PO DAILY [facility] Atorvastatin Calcium (Lipitor) 10 mg PO HS [facility] Last Admin: 02/18/18 21:28 Dose: 10 mg Baclofen (Lioresal) 10 mg PO TID [facility] Last Admin: 02/19/18 10:52 Dose: Not Given Calcium Carbonate (Tums) 1,000 mg PO Q4H PRN PRN Reason: Heartburn or Indigestion Clonidine (Catapres) 0.1 mg PO Q4H PRN PRN Reason: Systolic BP > 180 Docusate Sodium (Colace) 100 mg PO BID [facility] Last Admin: 02/19/18 10:52 Dose: Not Given Famotidine (Pepcid) 20 mg PO QPM [facility] Fluoxetine HCl (Prozac) 20 mg PO DAILY [facility] Last Admin: 02/18/18 12:30 Dose: 20 mg Gabapentin (Neurontin) 100 mg PO TID [facility] Last Admin: 02/19/18 10:53 Dose: Not Given Heparin Sodium (Porcine) (Heparin) 5,000 units SC BID [facility] Last Admin: 02/18/18 21:28 Dose: 5,000 units Hydralazine HCl (Apresoline) 10 mg SLOW IVP Q4H PRN PRN Reason: SBP > 180 Ceftriaxone Sodium 1 gm/ (Sodium Chloride) 100 mls @ 200 mls/hr IVPB Q24HR [facility] Last Admin: 02/18/18 14:45 Dose: 100 mls Levetiracetam 500 mg/ Device 100 mls @ 200 mls/hr IVPB BID [facility] Last Admin: 02/18/18 21:41 Dose: 100 mls Fosphenytoin Sodium 200 mg/ (Sodium Chloride) 54 mls @ 108 mls/hr IVPB BID [facility] Last Admin: 02/18/18 22:16 Dose: 54 mls Loratadine (Claritin) 10 mg PO DAILYPRN PRN PRN Reason: Sinus Symptoms Lorazepam (Ativan) 1 mg SLOW IVP Q15MIN PRN PRN Reason: Seizures Nitroglycerin (Nitrostat) 0.4 mg PO Q5MIN PRN PRN Reason: Chest Pain Ondansetron HCl (Zofran Odt) 4 mg PO Q6H PRN PRN Reason: Nausea/Vomiting Ondansetron HCl (Zofran) 4 mg IVP Q6H PRN PRN Reason: Nausea/Vomiting Last Admin: 02/17/18 22:51 Dose: 4 mg Senna (Senokot) 2 tab PO HSPRN PRN PRN Reason: Constipation Sevelamer Carbonate (Renvela) 2,400 mg PO TID[facility] Last Admin: 02/19/18 10:52 Dose: Not Given Sodium Chloride (Flush - Normal Saline) 10 ml IVF Q12HR [facility] Last Admin: 02/18/18 22:16 Dose: 10 ml Sodium Chloride (Flush - Normal Saline) 10 ml IVF PRN PRN PRN Reason: Saline Flush
[2018-02-19] MEDS: FLUoxetine HCl 20 MG CAP PO SCH (17:06)
[2018-02-19] MEDS: Aspirin 81 mg Enteric Coated Tablet PO SCH (17:06)
[2018-02-19] MEDS: Heparin 5,000 UNITS/ML VIAL SC SCH ×2 (17:08→22:10)
[2018-02-19] MEDS: Fosphenytoin Sodium 200 MG in Sodium Chloride 0.9% 50 ML IVPB SCH ×2 (19:59→21:53)
[2018-02-19] MEDS: Famotidine 20 MG TAB PO SCH (21:55)
[2018-02-19] MEDS: Atorvastatin Calcium 10 MG TAB PO SCH (21:55)
[2018-02-20 05:21] LABS: #Basophils 0.1 thou/uL (0.0-0.2); #Eosinphils 0.2 thou/uL (0.0-0.7); #Lymphocytes 2.1 thou/uL (1.20-3.40); #Monocytes 0.7 thou/uL (0.11-0.59); #Neutrophils 3.7 thou/uL (1.40-6.50); %Eosinophils 3.3 % (0.0-10.0); %Lymphocytes 31.8 % (21.0-51.0); %Monocytes 9.6 % (0.0-10.0); %Neutrophils 54.3 % (42.0-75.0); Hemoglobin 11.1 g/dL (14.0-18.0); Mean Corpuscular HGB CONC 31.8 g/dL (32.0-36.0); Mean Corpuscular Hemoglobin 27.9 pg (27.0-31.0); Mean Platelet Volume 9.3 fL (7.4-10.4); Platelet Count 161 thou/uL (130-400); RBC Distribution Width 15.2 % (11.5-14.5); Red Blood Cell (RBC) Count 3.96 mill/uL (4.70-6.10); White Blood Cell (WBC) Count 6.7 thou/uL (4.8-10.8)
[2018-02-20 05:37] LABS: Anion Gap 18 mmol/L (10-20); BUN (Urea Nitrogen) 19 mg/dL (8.9-20.6); Calc. Creatinine Clearance 13 mL/min (70-130); Carbon Dioxide 25 mmol/L (22-29); Chloride 99 mmol/L (98-107); Estimated GFR-MDRD 14; Glucose 73 mg/dL (70-105); Potassium 4.3 mmol/L (3.5-5.1); Sodium 138 mmol/L (136-145)
[2018-02-20] MEDS: Sevelamer Carbonate 800 MG TAB PO SCH ×3 (09:40→17:19)
[2018-02-20] MEDS: Heparin 5,000 UNITS/ML VIAL SC SCH ×2 (09:40→21:39)
[2018-02-20] MEDS: Baclofen 10 MG TAB PO SCH ×3 (09:40→21:43)
[2018-02-20] MEDS: Gabapentin 100 MG CAP PO SCH ×3 (09:40→21:43)
[2018-02-20] MEDS: Docusate 100 MG CAP PO SCH ×2 (09:40→21:42)
[2018-02-20] MEDS: Aspirin 81 mg Enteric Coated Tablet PO SCH (09:40)
[2018-02-20] MEDS: FLUoxetine HCl 20 MG CAP PO SCH (09:40)
[2018-02-20] MEDS: Fosphenytoin Sodium 200 MG in Sodium Chloride 0.9% 50 ML IVPB SCH ×2 (10:56→21:41)
--- NOTE | 2018-02-20 11:18 | PDOC.PN ---
- Subjective Encounter Start Date: 02/20/18 Encounter Start Time: 08:00 Patient seen and examined for Encephalopathy. No new seizure. No new mentation changes. No new complaints. No overnight events - Objective MAR Reviewed: Yes Vital Signs & Weight: Vital Signs (12 hours) Temp Pulse Resp BP BP Pulse Ox 02/20/18 08:00 98.4 F 74 16 02/20/18 07:41 98.4 F 74 16 102/73 99 02/20/18 03:00 97.5 F L 88 20 108/70 98 02/19/18 23:35 98.4 F 94 20 102/76 96 Weight Admit Weight 131 lb Weight 126 lb 15.78 oz I&O: 02/19/18 02/20/18 02/21/18 06:59 06:59 06:59 Intake Total 782 200 Output Total 2100 Balance 782 -1900 Result Diagrams: 02/20/18 05:07 02/20/18 05:07 Phys Exam - Physical Examination Constitutional: NAD Respiratory: no wheezing, no rhonchi Cardiovascular: RRR, no rub Gastrointestinal: soft, non-tender, positive bowel sounds Musculoskeletal: no edema Neurological: moves all 4 limbs Dx/Plan - Plan DVT proph w/SCDs IMPRESSION: 1. Toxic metabolic encephalopathy -improving - prob due to seizure and UTI - Unable to sent UA/urine culture - straight catheter attempted. Empiric Atbx - IV Ceftriaxone, Blood culture neg, Afebrile Cont AEDs 2. Seizure disorder Cont Keppra and Dilantin 3. Elevated BP - no h/o HTN Will monitor, Add PRN HTN meds 4. Depression Cont Prozac 5. h/o Urethral strictures. USG showed bladder thickening Will arrange Urology follow up as outpatient 6. Swallow dys - resolved Review of Systems - Review of Systems Respiratory: negative: Cough, Dry, Shortness of Breath, Hemoptysis, SOB with Excertion, Pleuritic Pain, Sputum, Wheezing Cardiovascular: negative: chest pain, palpitations, orthopnea, paroxysmal nocturnal dyspnea, edema, light headedness, other - Medications/Allergies Allergies/Adverse Reactions: Allergies Allergy/AdvReac Type Severity Reaction Status Date / Time No Known Allergies Allergy Verified 02/02/18 15:45 Medications: Current Medications Acetaminophen (Tylenol) 650 mg [place] Q4H PRN PRN Reason: Headache/Fever or Pain Last Admin: 02/18/18 07:18 Dose: 650 mg Acetaminophen (Tylenol) 650 mg PO Q4H PRN PRN Reason: Headache/Fever or Pain Last Admin: 02/19/18 10:45 Dose: 650 mg Aspirin (Ecotrin) 81 mg PO DAILY [facility] Last Admin: 02/20/18 09:40 Dose: 81 mg Atorvastatin Calcium (Lipitor) 10 mg PO HS [facility] Last Admin: 02/19/18 21:55 Dose: 10 mg Baclofen (Lioresal) 10 mg PO TID [facility] Last Admin: 02/20/18 09:40 Dose: 10 mg Calcium Carbonate (Tums) 1,000 mg PO Q4H PRN PRN Reason: Heartburn or Indigestion Clonidine (Catapres) 0.1 mg PO Q4H PRN PRN Reason: Systolic BP > 180 Docusate Sodium (Colace) 100 mg PO BID [facility] Last Admin: 02/20/18 09:40 Dose: 100 mg Famotidine (Pepcid) 20 mg PO QPM [facility] Last Admin: 02/19/18 21:55 Dose: 20 mg Fluoxetine HCl (Prozac) 20 mg PO DAILY [facility] Last Admin: 02/20/18 09:40 Dose: 20 mg Gabapentin (Neurontin) 100 mg PO TID [facility] Last Admin: 02/20/18 09:40 Dose: 100 mg Heparin Sodium (Porcine) (Heparin) 5,000 units SC BID [facility] Last Admin: 02/20/18 09:40 Dose: 5,000 units Hydralazine HCl (Apresoline) 10 mg SLOW IVP Q4H PRN PRN Reason: SBP > 180 Ceftriaxone Sodium 1 gm/ (Sodium Chloride) 100 mls @ 200 mls/hr IVPB Q24HR [facility] Last Admin: 02/18/18 14:45 Dose: 100 mls Levetiracetam 500 mg/ Device 100 mls @ 200 mls/hr IVPB BID [facility] Last Admin: 02/20/18 09:39 Dose: 100 mls Fosphenytoin Sodium 200 mg/ (Sodium Chloride) 54 mls @ 108 mls/hr IVPB BID [facility] Last Admin: 02/20/18 10:56 Dose: 54 mls Loratadine (Claritin) 10 mg PO DAILYPRN PRN PRN Reason: Sinus Symptoms Lorazepam (Ativan) 1 mg SLOW IVP Q15MIN PRN PRN Reason: Seizures Nitroglycerin (Nitrostat) 0.4 mg PO Q5MIN PRN PRN Reason: Chest Pain Ondansetron HCl (Zofran Odt) 4 mg PO Q6H PRN PRN Reason: Nausea/Vomiting Ondansetron HCl (Zofran) 4 mg IVP Q6H PRN PRN Reason: Nausea/Vomiting Last Admin: 02/17/18 22:51 Dose: 4 mg Senna (Senokot) 2 tab PO HSPRN PRN PRN Reason: Constipation Sevelamer Carbonate (Renvela) 2,400 mg PO TID-WM [facility] Last Admin: 02/20/18 09:40 Dose: 2,400 mg Sodium Chloride (Flush - Normal Saline) 10 ml IVF Q12HR [facility] Last Admin: 02/20/18 10:51 Dose: 10 ml Sodium Chloride (Flush - Normal Saline) 10 ml IVF PRN PRN PRN Reason: Saline Flush
[2018-02-20] MEDS ORDERED: ISOVUE-370 76%-LOCM 1 ML ONE (12:05)
[2018-02-20] MEDS: cefTRIAXone\\ROCEPHIN 1 GM in Sodium Chloride 0.9% 100 ML IVPB SCH (13:02)
--- NOTE | 2018-02-20 15:02 | PRG ---
DATE OF SERVICE: 02/20/2018 SUBJECTIVE: Mr. Nichols is awake. He does not appear to be in distress. Again, the communication is difficult because of his aphasia, appears to be both expressive as well as receptive. Has not had a ny respiratory symptoms. No diarrhea. He does not have urinary output. OBJECTIVE: VITAL SIGNS: T-max 98.4, blood pressure 120/80, pulse 75, respirations 18, O2 sat 97%. GENERAL: Awake, oriented. HEENT: Ocular movements are conjugate. LUNGS: Symmetric with clear breath sounds. CARDIOVASCULAR: S1, S2, regular rate. ABDOMEN: Soft, not distended. No bladder distention. EXTREMITIES: No joint inflammatory activity. LABORATORY DATA: White cell count 6.7, hemoglobin 11, platelets 161,000. Sodium 138, creatinine 5.4 2. Liver profile normal. Urinalysis was not available. Because of his urethral stricture, could no t be catheterized. Nurses have not been able to get a sample of urine. The blood cultures are negat saleem. No urine sample for urine cultures again. Echocardiogram was not remarkable. Renal ultrasound showed no evidence of hydronephrosis. There was evidence of thickening of the wall of the urinary b ladder. The prostate was enlarged. There was a hypoechoic area posterior to the urinary bladder andrei suring 6.2 x 5.3 x 2.4 cm. ASSESSMENT: End-stage renal disease, prior cerebrovascular accident, possible recurrent seizure acti vity with subtherapeutic Dilantin level, history of urethral stricture and the abnormalities noted on renal ultrasound. At this point, we will order abdomen and pelvis CT to evaluate the hypoechoic area to make sure this is not an abscess. He may have had a little rupture of the urinary bladder while doing catheterizati on. Discontinue Rocephin and proceed according to the results of the imaging study.
--- NOTE | 2018-02-20 19:14 | CT ---
ABDOMEN AND PELVIS CT WITH CONTRAST: 02/20/18 INDICATION: Pelvic mass. FINDINGS: There is marked urinary bladder wall thickening with internal excreted contrast. The adjacent, sprinkling system irrigator iorly located rectosigmoid colon is markedly distended with impacted fecal material. Interposed betwe en the distended rectosigmoid, and the thickened urinary bladder, there is prominent soft tissues, ac counting for the preceding findings on ultrasound which favors enlargement of the seminal vesicles. T here are atrophic heterogeneous and cystic kidneys bilaterally. No evidence of adrenal mass. Spleen i s unremarkable. Punctate hypodensity of the liver is too small to further characterize. There is hazy density of the imaged right lower lobe, nonspecific. A focal area of pneumonitis should be excluded clinically. IMPRESSION: 1. Abnormal urinary bladder wall with marked prominence of seminal vesicles. Correlate clinicall y. 2. Constipation with prominent distention of the rectosigmoid colon. 3. Hazy alveolar opacification of the imaged right lower lobe, which may be on the basis of pneu monitis, in the correct clinical context. 4. Chronic renal disease, as evidenced by bilateral atrophic, heterogeneous, cystic kidneys. POS: SHRUTI
[2018-02-20] MEDS ORDERED: Milk Of Magnesia 30 ML UDCUP PO SCH (21:30)
[2018-02-20] MEDS ORDERED: Bisacodyl 10 MG SUPP PR SCH (21:30)
[2018-02-20] MEDS: Famotidine 20 MG TAB PO SCH (21:42)
[2018-02-20] MEDS: Atorvastatin Calcium 10 MG TAB PO SCH (21:43)
[2018-02-20] MEDS ORDERED: Azithromycin 500 MG in Sodium Chloride 0.9% 250 ML 250 ML IVPB SCH (22:30)
[2018-02-21] MEDS: cefTRIAXone\\ROCEPHIN 2 GM in Sodium Chloride 0.9% 100 ML IVPB SCH (01:02)
[2018-02-21] MEDS: Azithromycin 500 MG in Sodium Chloride 0.9% 250 ML 250 ML IVPB SCH (01:17)
[2018-02-21] MEDS: Senokot S 8.6-50 MG TAB PO SCH ×3 (01:18→22:03)
[2018-02-21] MEDS: Polyethylene Glycol 3350 17 GM Packet PO SCH ×3 (01:18→22:03)
[2018-02-21] MEDS: Baclofen 10 MG TAB PO SCH ×3 (09:14→22:03)
[2018-02-21] MEDS: Gabapentin 100 MG CAP PO SCH ×3 (09:14→22:03)
[2018-02-21] MEDS: Sevelamer Carbonate 800 MG TAB PO SCH ×3 (09:14→17:09)
[2018-02-21] MEDS: Saccharomyces boulardii 250 MG CAP PO SCH (09:14)
[2018-02-21] MEDS: FLUoxetine HCl 20 MG CAP PO SCH (09:15)
[2018-02-21] MEDS: Docusate 100 MG CAP PO SCH ×2 (09:15→22:03)
[2018-02-21] MEDS: Heparin 5,000 UNITS/ML VIAL SC SCH ×2 (09:15→22:02)
[2018-02-21] MEDS: Aspirin 81 mg Enteric Coated Tablet PO SCH (09:15)
[2018-02-21] MEDS: Fleet Enema 133 ML BOT PR SCH (10:24)
[2018-02-21] MEDS: Fosphenytoin Sodium 200 MG in Sodium Chloride 0.9% 50 ML IVPB SCH ×2 (10:42→23:03)
--- NOTE | 2018-02-21 13:37 | PDOC.PN ---
- Subjective Encounter Start Date: 02/21/18 Encounter Start Time: 09:00 Patient seen and examined for Encephalopathy. No new complaints. No overnight events. No new seizure. - Objective MAR Reviewed: Yes Vital Signs & Weight: Vital Signs (12 hours) Temp Pulse Pulse Pulse Resp BP BP 02/21/18 11:45 97.5 F L 80 14 02/21/18 09:56 70 111 H 153/77 H 155/85 H 02/21/18 08:00 98.3 F 88 16 02/21/18 07:42 98.3 F 88 16 02/21/18 04:00 97.7 F 99 18 BP Pulse Ox 02/21/18 11:45 113/75 98 02/21/18 09:56 02/21/18 08:00 02/21/18 07:42 110/80 100 02/21/18 04:00 175/109 H 100 Weight Admit Weight 131 lb Weight 126 lb 15.78 oz I&O: 02/20/18 02/21/18 02/22/18 06:59 06:59 06:59 Intake Total 200 650 Output Total 2100 Balance -1900 650 Result Diagrams: 02/20/18 05:07 02/20/18 05:07 EKG Reviewed by me: Yes (Tele SR) Phys Exam - Physical Examination Constitutional: NAD Respiratory: no wheezing, no rhonchi Cardiovascular: RRR, no rub Scat rales at bases Gastrointestinal: soft, non-tender, no distention, positive bowel sounds Musculoskeletal: no edema Dx/Plan - Plan DVT proph w/heparin, DVT proph w/SCDs IMPRESSION: 1. Toxic metabolic encephalopathy -improving - due to seizure and UTI - Unable to sent UA/urine culture (straight catheter attempted) Empiric Atbx - IV Ceftriaxone, Blood culture neg 2. CAP ?Pneumococcal vs Aspiration - present on admision Cont Empiric Atbx, Add Flagyl for Anaerobic coverage 3. Seizure disorder Cont Keppra and Dilantin - change to PO 4. Baldder wall thickening Consult Urology in AM 5. Depression Cont Prozac 6. h/o Urethral strictures. USG showed bladder thickening Will arrange Urology follow up as outpatient 7. Swallow dys - on modified diet 8. Fecal impaction - improved after Miralax/Sen-S/Bisacodyl supp 9. Elevated BP - no h/o HTN Will monitor, Cont PRN HTN meds Review of Systems - Review of Systems Respiratory: negative: Cough, Dry, Shortness of Breath, Hemoptysis, SOB with Excertion, Pleuritic Pain, Sputum, Wheezing Cardiovascular: negative: chest pain, palpitations, orthopnea, paroxysmal nocturnal dyspnea, edema, light headedness, other - Medications/Allergies Allergies/Adverse Reactions: Allergies Allergy/AdvReac Type Severity Reaction Status Date / Time No Known Allergies Allergy Verified 02/02/18 15:45 Medications: Current Medications Acetaminophen (Tylenol) 650 mg NM Q4H PRN PRN Reason: Headache/Fever or Pain Last Admin: 02/18/18 07:18 Dose: 650 mg Acetaminophen (Tylenol) 650 mg PO Q4H PRN PRN Reason: Headache/Fever or Pain Last Admin: 02/19/18 10:45 Dose: 650 mg Aspirin (Ecotrin) 81 mg PO DAILY [facility] Last Admin: 02/21/18 09:15 Dose: 81 mg Atorvastatin Calcium (Lipitor) 10 mg PO HS [facility] Last Admin: 02/20/18 21:43 Dose: 10 mg Baclofen (Lioresal) 10 mg PO TID [facility] Last Admin: 02/21/18 09:14 Dose: 10 mg Calcium Carbonate (Tums) 1,000 mg PO Q4H PRN PRN Reason: Heartburn or Indigestion Clonidine (Catapres) 0.1 mg PO Q4H PRN PRN Reason: Systolic BP > 180 Docusate Sodium (Colace) 100 mg PO BID [facility] Last Admin: 02/21/18 09:15 Dose: 100 mg Famotidine (Pepcid) 20 mg PO QPM [facility] Last Admin: 02/20/18 21:42 Dose: 20 mg Fluoxetine HCl (Prozac) 20 mg PO DAILY [facility] Last Admin: 02/21/18 09:15 Dose: 20 mg Gabapentin (Neurontin) 100 mg PO TID [facility] Last Admin: 02/21/18 09:14 Dose: 100 mg Heparin Sodium (Porcine) (Heparin) 5,000 units SC BID [facility] Last Admin: 02/21/18 09:15 Dose: 5,000 units Hydralazine HCl (Apresoline) 10 mg SLOW IVP Q4H PRN PRN Reason: SBP > 180 Ceftriaxone Sodium 2 gm/ (Sodium Chloride) 100 mls @ 200 mls/hr IVPB 2200 [facility] Last Admin: 02/21/18 01:02 Dose: 100 mls Azithromycin 500 mg/ Sodium (Chloride) 250 mls @ 250 mls/hr IVPB 0100 [facility] Last Admin: 02/21/18 01:17 Dose: 250 mls Levetiracetam (Keppra) 500 mg PO BID [facility] Loratadine (Claritin) 10 mg PO DAILYPRN PRN PRN Reason: Sinus Symptoms Lorazepam (Ativan) 1 mg SLOW IVP Q15MIN PRN PRN Reason: Seizures Metronidazole (Flagyl) 500 mg PO TID [facility] Miscellaneous Medication (Pharmacy To Dose) 1 each IVPB ASDIR [facility] Nitroglycerin (Nitrostat) 0.4 mg PO Q5MIN PRN PRN Reason: Chest Pain Ondansetron HCl (Zofran Odt) 4 mg PO Q6H PRN PRN Reason: Nausea/Vomiting Ondansetron HCl (Zofran) 4 mg IVP Q6H PRN PRN Reason: Nausea/Vomiting Last Admin: 02/17/18 22:51 Dose: 4 mg Phenytoin Sodium (Dilantin Er) 200 mg PO BID [facility] Polyethylene Glycol (Miralax) 17 gm PO BID [facility] Last Admin: 02/21/18 09:16 Dose: 17 gm Saccharomyces Boulardii (Florastor) 250 mg PO DAILY [facility] Last Admin: 02/21/18 09:14 Dose: 250 mg Senna (Senokot) 2 tab PO HSPRN PRN PRN Reason: Constipation Senna/Docusate Sodium (Senokot S) 2 tab PO BID [facility] Last Admin: 02/21/18 09:14 Dose: 2 tab Sevelamer Carbonate (Renvela) 2,400 mg PO TID[facility] Last Admin: 02/21/18 12:36 Dose: Not Given Sodium Biphosphate/Sodium Phosphate (Fleet Enema) 133 ml NM DAILY [facility] Last Admin: 02/21/18 10:24 Dose: Not Given Sodium Chloride (Flush - Normal Saline) 10 ml IVF Q12HR [facility] Last Admin: 02/21/18 09:16 Dose: Not Given Sodium Chloride (Flush - Normal Saline) 10 ml IVF PRN PRN PRN Reason: Saline Flush
[2018-02-21] MEDS ORDERED: metroNIDAZOLE 500 MG TAB PO SCH (15:00)
--- NOTE | 2018-02-21 15:09 | PRG ---
DATE OF SERVICE: 02/21/2018 SUBJECTIVE: Mr. Nichols is awake. Does not appear in distress, but aphasia hinders communication. OBJECTIVE: VITAL SIGNS: Showed normal temperature. A slight elevation in systolic blood pressure. LUNGS: Clear. HEART: S1 and S2, regular rate. No S3 or S4. ABDOMEN: Soft. LABORATORY DATA: White cell count 6.7, hemoglobin 11, platelets 161, creatinine 5.42. Microbiology with negative blood cultures. Again, no samples from urine were obtained, because of the stricture disease. Abdomen and pelvis CT demonstrates abnormal urinary bladder wall with marked prominence of seminal vesicles. Minor alveolar opacification in the right lower lobe. ASSESSMENT AND DISCUSSION: End-stage renal disease, prior cerebrovascular accident with severe aphasia, recurrent seizure activity, subtherapeutic Dilantin level, evidence of cystitis and now evidence of seminal vesiculitis. Seminal vesiculitis is usually associated with prostatitis. I feel that, in the face of this, it would be justifiable to continue quinolone treatment for another 2 weeks approximately or even longer, because this is probably related to chronic prostatitis. MTDD
--- NOTE | 2018-02-21 16:25 | PDOC.EVN ---
Event Note - Event Note Event Note: RN called - Pt somnolent and not safe for PO meds. Will change Keppra and Dilantin to PO
[2018-02-21] MEDS ORDERED: levETIRAcetam 500 MG TAB PO SCH (21:00)
[2018-02-21] MEDS: Famotidine 20 MG TAB PO SCH (22:03)
[2018-02-21] MEDS: Atorvastatin Calcium 10 MG TAB PO SCH (22:03)
[2018-02-22] MEDS: cefTRIAXone\\ROCEPHIN 2 GM in Sodium Chloride 0.9% 100 ML IVPB SCH (00:11)
[2018-02-22] MEDS: Azithromycin 500 MG in Sodium Chloride 0.9% 250 ML 250 ML IVPB SCH (02:13)
[2018-02-22] MEDS: Heparin 5,000 UNITS/ML VIAL SC SCH ×2 (08:16→21:45)
[2018-02-22] MEDS: Sevelamer Carbonate 800 MG TAB PO SCH ×3 (08:16→17:53)
[2018-02-22 09:39] LABS: #Eosinphils 0.3 thou/uL (0.0-0.7); #Lymphocytes 1.2 thou/uL (1.20-3.40); #Monocytes 0.2 thou/uL (0.11-0.59); #Neutrophils 2.3 thou/uL (1.40-6.50); %Basophils 1.2 % (0.0-1.0); %Eosinophils 6.8 % (0.0-10.0); Hemoglobin 11.3 g/dL (14.0-18.0); Mean Corpuscular HGB CONC 31.3 g/dL (32.0-36.0); Mean Corpuscular Hemoglobin 27.4 pg (27.0-31.0); Mean Corpuscular Volume 87.5 fL (78.0-98.0); Mean Platelet Volume 9.7 fL (7.4-10.4); Platelet Count 173 thou/uL (130-400); RBC Distribution Width 15.2 % (11.5-14.5); Red Blood Cell (RBC) Count 4.12 mill/uL (4.70-6.10); White Blood Cell (WBC) Count 4.1 thou/uL (4.8-10.8)
[2018-02-22 09:56] LABS: Anion Gap 17 mmol/L (10-20); BUN (Urea Nitrogen) 20 mg/dL (8.9-20.6); Calc. Creatinine Clearance 15 mL/min (70-130); Calcium 8.7 mg/dL (7.8-10.44); Carbon Dioxide 25 mmol/L (22-29); Chloride 99 mmol/L (98-107); Estimated GFR-MDRD 15; Glucose 81 mg/dL (70-105); Potassium 3.5 mmol/L (3.5-5.1); Sodium 137 mmol/L (136-145)
[2018-02-22] MEDS: Aspirin 81 mg Enteric Coated Tablet PO SCH (10:23)
[2018-02-22] MEDS: Baclofen 10 MG TAB PO SCH ×3 (10:23→22:14)
[2018-02-22] MEDS: Docusate 100 MG CAP PO SCH ×2 (10:23→22:14)
[2018-02-22] MEDS: FLUoxetine HCl 20 MG CAP PO SCH (10:23)
[2018-02-22] MEDS: Polyethylene Glycol 3350 17 GM Packet PO SCH ×2 (10:24→22:15)
[2018-02-22] MEDS: Senokot S 8.6-50 MG TAB PO SCH ×2 (10:24→22:14)
[2018-02-22] MEDS: Gabapentin 100 MG CAP PO SCH ×3 (10:24→22:14)
[2018-02-22] MEDS: Saccharomyces boulardii 250 MG CAP PO SCH (10:24)
[2018-02-22] MEDS: Fleet Enema 133 ML BOT PR SCH (10:25)
[2018-02-22] MEDS: Fosphenytoin Sodium 200 MG in Sodium Chloride 0.9% 50 ML IVPB SCH ×2 (12:37→22:21)
[2018-02-22 13:11] LABS: Bilirubin Negative (Negative); Blood, Urine Small (Negative); Clarity CLEAR (Clear); Glucose, Urine (Dipstick) Negative (Negative); Leukocyte Moderate (Negative); Nitrite Negative (Negative); Protein, Urine (Dipstick) 100 mg/dL (Neg-Trace); Specific Gravity, Urine 1.024 (1.002-1.036); Urobilinogen 0.2 mg/dL (0.2-1.0); pH, Urine 7.5 (5.0-9.0)
[2018-02-22 13:13] LABS: Bacteria/HPF None Seen HPF (None Seen); Pathc Cast-AUWi Flag 2.03 (0-2.49); RBC/HPF 0-3 HPF (0-3)
[2018-02-22 13:21] LABS: Renal Epithelial None Seen HPF (0-3); Transitional Epithelial NONE SEEN HPF (0-3)
--- NOTE | 2018-02-22 14:46 | CON ---
DATE OF CONSULTATION: 02/22/2018 HISTORY OF PRESENT ILLNESS: This is a 52-year-old -Armenian male, who I have known since 2013 . I have not seen him for slightly over a year. I first saw him in 09/2013 when he presented to the emergency center here with urinary retention and renal failure. He had a dilated bladder and impres sive bilateral hydronephrosis with renal cortical atrophy bilaterally. He had had a history of ureth ral stricture, and at some point in the past at [place], he had had a urethral stent placed f or that, but the lumen of the stent had become obstructed. We were able to dilate him at that point, and could leave the catheter in. His creatinine improved, but never went back to normal. At that t gerardo, I do not believe, though he was on dialysis. He was seeing Dr. Roland Patel, however. We had tried to get him referred to [place] to have the stent removed; however, either because of problems r elated to the patient not wishing to do that or perhaps related to finances, he elected to come in to see me once a month in my office and I would use an 18-Nigerian Tiemann catheter and be able to open u p this region and he would be able to urinate adequately on his own. We did this until last 01/2017, the last time I saw him, it went easily. At some point after that, he developed a stroke and he was up in [place] for quite a while with a fairly significant stroke that has certainly affected his mobi lity and movement. Also, it appears over that time, he has gone into complete renal failure. He is currently being dialyzed 3 days a week. He came in with some seizures this time and altered mental s tatus. There was a concern that perhaps it was infection related. He had a white count on the 1st, when he came in, that was normal. It was 11 on the 2nd and it has been normal since that time. He h as had blood cultures that are negative. Creatinine is elevated as expected, because of his renal fa ilure. His vital signs, since he has come in, have basically been normal. There is no documentation of any elevated temperature higher than 99.5. He has not been hypotensive. They were unable to get a urine sample from him, as he is basically anuric now. I think they tried to catheterize him, but they met some resistance and did not go further than that. Dr. Farooq saw him and recommend renal ult rasound that was done and then there was a concern of something between the rectum and the bladder an d a CAT scan was done that showed that there were just some enlarged seminal vesicles. The concern w as possible for prostatitis or seminal vesiculitis. Desire was to perhaps get a urine sample and con roseannat was obtained to be sure that we could maybe get a urine sample and see if we felt that he had pr ostatitis or seminal vesiculitis. The patient is nontalkative, but recognizes me, as I have taken ca re of for quite a long time. 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 He, in addition to that, has end-stage renal disease now. He has a history of seizure disorder that came on after a stroke that I guess was about a year ago. He has had at least one urinary tract infection in March of last year. He has for surgical his tory the urethral stent placement, a PEG tube that was placed and removed, right AV fistula, and he h as a dialysis catheter. His CAT scan was reviewed. He has bilateral cysts, small kidneys, no hydro. Seminal vesicles are very prominent. There is nothing around them that would suggest an abscess. There is nothing that would obviously suggest a prostatic abscess on the CT scan. On his exam, he is not circumcised, but there is not any phimosis and there are no lesions. Testicles descended withou t mass or tenderness. He has normal rectal tone. Prostate is 1/2 to 1+ in size. There is no nodula rity. There is no fluctuance. There is no tenderness. The seminal vesicles are not palpable, but c ertainly no tenderness on exam along the base of the prostate. I went ahead and sterilely prepped hi m with Betadine, placed 2% Xylocaine jelly topically, and then used a 16-Nigerian Tiemann catheter that went in through the lumen of the urethral stent. We drained about 200 mL of nonfoul-smelling nonclo udy urine that was sent off for urinalysis and culture. IMPRESSION: 1. Urethral stricture disease, which at this point in time is probably not much of an issue, as he i s generally anuric, and he does not have hydronephrosis or distended bladder. 2. Thickened cavanaugh of the urinary bladder, which I think are just related to a stricture disease. 3. Enlarged seminal vesicles, the most likely reason for this is probably just lack of ejaculation. I do not feel anything on his exam that would suggest that this is an obvious source of infection. Prostate exam: He is nontender, nonfluctuant, and nothing that would obviously suggest prostatitis. So, at this point, we sent a urine off for analysis and culture. We will see what that shows. He i s currently on antibiotics, I think, Levaquin, and at least until we get the cultures back, it would make sense to keep him on that. It is not 100% clear that he has come into the hospital this time wi th infection as a cause of his admission. Basically, normal white count, normal vital signs. No toshia vated temperature. In any event, he does not need to have a catheter left indwelling. I will check and see what his urinalysis and culture shows when it comes back.
[2018-02-22 16:01] VITALS: BMI 17.2
[2018-02-22] MEDS: Ondansetron HCl/PF 4 MG/2 ML Vial IVP PRN (18:06)
--- NOTE | 2018-02-22 20:02 | PDOC.PN ---
- Subjective Encounter Start Date: 02/22/18 Encounter Start Time: 09:00 Patient seen and examined for Encephalopathy/Seizure. No new complaints. No overnight events - Objective MAR Reviewed: Yes Vital Signs & Weight: Vital Signs (12 hours) Temp Pulse Resp BP BP Pulse Ox 02/22/18 15:50 98.5 F 100 14 107/71 95 02/22/18 12:00 98.1 F 100 16 111/75 111/75 97 02/22/18 08:08 97.7 F 88 16 96 Weight Admit Weight 131 lb Weight 126 lb 15.78 oz I&O: 02/21/18 02/22/18 02/23/18 06:59 06:59 06:59 Intake Total 650 860 400 Output Total 200 Balance 650 860 200 Result Diagrams: 02/22/18 09:18 02/22/18 09:18 EKG Reviewed by me: Yes (Tele SR) Phys Exam - Physical Examination Constitutional: NAD Respiratory: no wheezing, no rhonchi Cardiovascular: RRR, no rub Gastrointestinal: soft, non-tender, positive bowel sounds Musculoskeletal: no edema Neuro - No new focal deficits. Dx/Plan - Plan DVT proph w/heparin, DVT proph w/SCDs IMPRESSION: 1. Toxic metabolic encephalopathy -improving - due to seizure and UTI Cont IV Levaquin, Blood culture neg, Await Urine culture(sent today by Urology) 2. CAP ?Pneumococcal vs Aspiration - present on admision Cont Atbx 3. Seizure disorder Cont Keppra and Dilantin - change to IV due to intermittent confusion 4. Baldder wall thickening - prob seminal vesiculitis Urology input appreciated 5. Depression Cont Prozac 6. h/o Urethral strictures. USG showed bladder thickening Will arrange Urology follow up as outpatient 7. Swallow dys - on modified diet 8. Fecal impaction - improved after Miralax/Sen-S/Bisacodyl supp 9. Elevated BP - no h/o HTN Will monitor, Cont PRN HTN meds Disposition - accepted by [facility] - Will need 2 weeks of Levaquin per ID. DC in 24 hr if stable and tolerating PO meds Review of Systems - Review of Systems Respiratory: negative: Cough, Dry, Shortness of Breath, Hemoptysis, SOB with Excertion, Pleuritic Pain, Sputum, Wheezing Cardiovascular: negative: chest pain, palpitations, orthopnea, paroxysmal nocturnal dyspnea, edema, light headedness, other - Medications/Allergies Allergies/Adverse Reactions: Allergies Allergy/AdvReac Type Severity Reaction Status Date / Time No Known Allergies Allergy Verified 02/02/18 15:45 Medications: Current Medications Acetaminophen (Tylenol) 650 mg ND Q4H PRN PRN Reason: Headache/Fever or Pain Last Admin: 02/18/18 07:18 Dose: 650 mg Acetaminophen (Tylenol) 650 mg PO Q4H PRN PRN Reason: Headache/Fever or Pain Last Admin: 02/19/18 10:45 Dose: 650 mg Aspirin (Ecotrin) 81 mg PO DAILY [facility] Last Admin: 02/22/18 10:23 Dose: Not Given Atorvastatin Calcium (Lipitor) 10 mg PO HS [facility] Last Admin: 02/21/18 22:03 Dose: Not Given Baclofen (Lioresal) 10 mg PO TID [facility] Last Admin: 02/22/18 16:27 Dose: Not Given Calcium Carbonate (Tums) 1,000 mg PO Q4H PRN PRN Reason: Heartburn or Indigestion Clonidine (Catapres) 0.1 mg PO Q4H PRN PRN Reason: Systolic BP > 180 Docusate Sodium (Colace) 100 mg PO BID [facility] Last Admin: 02/22/18 10:23 Dose: Not Given Famotidine (Pepcid) 20 mg PO QPM [facility] Last Admin: 02/21/18 22:03 Dose: Not Given Fluoxetine HCl (Prozac) 20 mg PO DAILY [facility] Last Admin: 02/22/18 10:23 Dose: Not Given Gabapentin (Neurontin) 100 mg PO TID [facility] Last Admin: 02/22/18 16:27 Dose: Not Given Heparin Sodium (Porcine) (Heparin) 5,000 units SC BID [facility] Last Admin: 02/22/18 08:16 Dose: 5,000 units Hydralazine HCl (Apresoline) 10 mg SLOW IVP Q4H PRN PRN Reason: SBP > 180 Fosphenytoin Sodium 200 mg/ (Sodium Chloride) 54 mls @ 100 mls/hr IVPB BID [facility] Last Admin: 02/22/18 12:37 Dose: 54 mls Levetiracetam 500 mg/ Device 100 mls @ 200 mls/hr IVPB BID [facility] Last Admin: 02/22/18 13:16 Dose: 100 mls Levofloxacin 250 mg/ Device 50 mls @ 100 mls/hr IVPB Q2D@1200 [facility] Loratadine (Claritin) 10 mg PO DAILYPRN PRN PRN Reason: Sinus Symptoms Lorazepam (Ativan) 1 mg SLOW IVP Q15MIN PRN PRN Reason: Seizures Miscellaneous Medication (Pharmacy To Dose) 1 each IVPB ASDIR [facility] Nitroglycerin (Nitrostat) 0.4 mg PO Q5MIN PRN PRN Reason: Chest Pain Ondansetron HCl (Zofran Odt) 4 mg PO Q6H PRN PRN Reason: Nausea/Vomiting Ondansetron HCl (Zofran) 4 mg IVP Q6H PRN PRN Reason: Nausea/Vomiting Last Admin: 02/22/18 18:06 Dose: 4 mg Polyethylene Glycol (Miralax) 17 gm PO BID [facility] Last Admin: 02/22/18 10:24 Dose: Not Given Saccharomyces Boulardii (Florastor) 250 mg PO DAILY [facility] Last Admin: 02/22/18 10:24 Dose: Not Given Senna (Senokot) 2 tab PO HSPRN PRN PRN Reason: Constipation Senna/Docusate Sodium (Senokot S) 2 tab PO BID [facility] Last Admin: 02/22/18 10:24 Dose: Not Given Sevelamer Carbonate (Renvela) 2,400 mg PO TID[facility] Last Admin: 02/22/18 17:53 Dose: 2,400 mg Sodium Biphosphate/Sodium Phosphate (Fleet Enema) 133 ml ND DAILY [facility] Last Admin: 02/22/18 10:25 Dose: Not Given Sodium Chloride (Flush - Normal Saline) 10 ml IVF Q12HR [facility] Last Admin: 02/22/18 12:38 Dose: 10 ml Sodium Chloride (Flush - Normal Saline) 10 ml IVF PRN PRN PRN Reason: Saline Flush
[2018-02-22] MEDS: Atorvastatin Calcium 10 MG TAB PO SCH (22:14)
[2018-02-22] MEDS: Famotidine 20 MG TAB PO SCH (22:14)
[2018-02-23] MEDS: Sevelamer Carbonate 800 MG TAB PO SCH ×3 (08:11→17:00)
[2018-02-23] MEDS: FLUoxetine HCl 20 MG CAP PO SCH (08:12)
[2018-02-23] MEDS: Heparin 5,000 UNITS/ML VIAL SC SCH ×2 (08:12→21:37)
[2018-02-23] MEDS: Docusate 100 MG CAP PO SCH ×2 (08:12→21:13)
[2018-02-23] MEDS: Saccharomyces boulardii 250 MG CAP PO SCH (08:12)
[2018-02-23] MEDS: Gabapentin 100 MG CAP PO SCH (08:12)
[2018-02-23] MEDS: Aspirin 81 mg Enteric Coated Tablet PO SCH (08:12)
[2018-02-23] MEDS: Senokot S 8.6-50 MG TAB PO SCH ×2 (08:12→21:13)
[2018-02-23] MEDS: Baclofen 10 MG TAB PO SCH ×2 (08:12→21:14)
[2018-02-23] MEDS: Fosphenytoin Sodium 200 MG in Sodium Chloride 0.9% 50 ML IVPB SCH (08:13)
[2018-02-23] MEDS: Polyethylene Glycol 3350 17 GM Packet PO SCH ×2 (08:13→21:14)
[2018-02-23] MEDS: Fleet Enema 133 ML BOT PR SCH (08:14)
[2018-02-23] MEDS ORDERED: Gabapentin 100 MG CAP PO SCH (10:36)
--- NOTE | 2018-02-23 11:37 | PRG ---
DATE OF SERVICE: 02/23/2018 SUBJECTIVE: The patient is seen and examined at the bedside. He is doing better. Apparently he is not sedated for the last 24 hours like he used to be before. He is not complaining about any signifi cant amount of pain. OBJECTIVE: VITAL SIGNS: Blood pressure is 116/56, pulse is 75, respiratory rate is 16, O2 saturation is 99% on room air. HEENT: His head is atraumatic, normocephalic. Conjunctivae pinkish. Oral mucosa is moist. NECK: Supple. LUNGS: Breath sounds diminished at both bases. CARDIOVASCULAR: S1, S2, somewhat distant. No S3, no S4. ABDOMEN: Soft, nontender. EXTREMITIES: No clubbing, cyanosis or edema. NEUROLOGIC: No new focal deficits. LABORATORY: Microbiology; preliminary report on urine culture is negative. IMPRESSION: 1. Fluctuating altered mental status with increased sedation on and off. 2. Seizure disorder. Continue Keppra and Dilantin. We are switching to oral forms. 3. Urinary bladder wall thickening with possible seminal vesiculitis. Dr. Campbell is on the case. H e is awaiting for urine cultures to come back since there is some suspicion that the patient might shrestha ve prostatitis. 4. History of urethral stricture. 5. Depression, on Prozac. 6. Questionable CAP. 7 Fecal impaction, improved. PLAN: The patient was supposed to be transferred to the rehab today since his preliminary urinary cu ltures are negative, but I think this needs to be postponed. I am switching him to oral Keppra and o ral Dilantin. I am lowering his gabapentin dose to 50 mg 3 times a day and baclofen 10 mg twice a da y instead of 3 times a day and if he is stable on this oral regimen and he takes medications properly he will be able to go to the rehab inpatient [facility]. I will continue his Levaquin for at least 2 weeks. I would like to get final decision on this from Dr. Campbell and Dr. Farooq since there is some suspicion that maybe there is some chronic prostatitis and this condition requires longer antibiotic then 2 weeks.
[2018-02-23] MEDS ORDERED: GABAPENTIN 50 MG PO SCH (15:00)
[2018-02-23] MEDS: levETIRAcetam 500 MG TAB PO SCH (21:13)
[2018-02-23] MEDS: Famotidine 20 MG TAB PO SCH (21:13)
[2018-02-23] MEDS: Atorvastatin Calcium 10 MG TAB PO SCH (21:13)
[2018-02-24] MEDS: Polyethylene Glycol 3350 17 GM Packet PO SCH (10:06)
[2018-02-24] MEDS: Aspirin 81 mg Enteric Coated Tablet PO SCH (10:07)
[2018-02-24] MEDS: FLUoxetine HCl 20 MG CAP PO SCH (10:07)
[2018-02-24] MEDS: Sevelamer Carbonate 800 MG TAB PO SCH ×3 (10:07→18:46)
[2018-02-24] MEDS: Docusate 100 MG CAP PO SCH (10:08)
[2018-02-24] MEDS: Baclofen 10 MG TAB PO SCH (10:08)
[2018-02-24] MEDS: Saccharomyces boulardii 250 MG CAP PO SCH (10:09)
[2018-02-24] MEDS: Heparin 5,000 UNITS/ML VIAL SC SCH (10:09)
[2018-02-24] MEDS: levETIRAcetam 500 MG TAB PO SCH (10:09)
[2018-02-24] MEDS: Senokot S 8.6-50 MG TAB PO SCH (10:09)
[2018-02-24] MEDS: Fleet Enema 133 ML BOT PR SCH (10:48)
--- NOTE | 2018-02-24 12:11 | PDOC.EVN ---
Event Note - Event Note Event Note: d/c summary dictation # [id number] i have left a voicemail to the [facility] medical numerical control operator air control/anti air warfare officer with my personal cell phone number in order to attempt a warm hand off for this patient.
--- NOTE | 2018-02-24 12:52 | DIS ---
DATE OF ADMISSION: 02/17/2018 DATE OF DISCHARGE: 02/24/2018 PRIMARY CARE PHYSICIAN: The patient is currently listed as not having a PCP in our facility, but it looks like his PCP may actually be Dr. Luis Kyle. DISCHARGE DIAGNOSES: 1. Toxic metabolic encephalopathy, improving. 2. Pneumonia, question of a community-acquired versus aspiration. 3. Seizure disorder, improving. 4. Bladder wall thickening with enlarged seminal glands, stable. 5. Dysfunctional swallow, stable. 6. Fecal impaction, resolved. 7. Hypertensive urgency, resolved. 8. Depression, stable. BRIEF SUMMARY OF HOSPITAL COURSE: This is a 52-year-old male who was initially brought in for altere d mental status. Please see the original history and physical for full details surrounding his admis sandra. 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 He previously had required a PEG tube due to dysphagia, which was subsequently reversed w ith progressive improvement in his swallowing capacity. At the time of discharge, the patient has co ntinued right-sided weakness, which is his baseline. He has required a further modification of his d iet due to continued swallow dysfunction. Patient is currently being transferred for physical therap y, occupational therapy, and speech therapy in attempt to reach his previous baseline post-CVA before the deconditioning onset from this acute illness episode. The patient is also felt to have sustained a possible aspiration versus community-acquired pneumonia. The patient has been seen by Neurology in regards to his deficits above along with a seizure. He h as also been seen by Infectious Diseases as well. The patient will continue on Levaquin for 12 more days to complete a 14-day course as dosed with his dialysis. The patient has a known history of end- stage renal disease on Thursday, Thursday, Thursday dialysis, his primary supervisor lens generating is Dr. Patel. Deandre garcia was seen by Nephrology on an inpatient basis and has received his routine dialysis sessions without need for additional sessions. The patient's initial presentation of altered mental status, the diff erential is quite broad. It is likely multifactorial with a component contributing from his pneumoni a, possible seizure activity, possible medication inducement. The patient's baclofen and gabapentin doses have been newly decreased to allow for improved mentation. There is also concern for the possi bility of a urinary tract infection with bladder wall thickening and the seminal vesicular enlargemen t. Urology was consulted. Urine cultures has been bland. Patient will continue on Levaquin for com munity-acquired pneumonia as noted above empirically. The remainder of the patient's chronic medical issues has remained stable. The patient's fecal impac tion has been alleviated. Initial elevated blood pressure has been controlled. CONSULTATIONS: 1. Neurology 2. Infectious Diseases 3. Urology. MEDICATION RECONCILIATION: Please see the EMR for full details. The patient will continue on his ho me regimen with the following modifications. Gabapentin has been decreased from 100 t.i.d. to 50 t.i .d. The patient has also been placed on Keppra 500 mg p.o. b.i.d. along with a baseline bowel regime n. Levaquin or levofloxacin dosing as noted above. PATIENT'S CONDITION AT DISCHARGE: At the time of discharge, the patient's, VITAL SIGNS: Stable. GENERAL: He is awake, conversant, in no acute distress. HEENT: Normocephalic, atraumatic. Equal ocular motions are intact. Slightly dry mucous membranes. CARDIOVASCULAR: S1, S2. No murmurs, rubs or gallops. Pulses 2+ bilateral upper extremities, no pit ting pedal edema. RESPIRATORY: Limited anterior examination. No conversational dyspnea. No wheezes, rales or rhonchi , grossly clear to auscultation with marginal air movement. ABDOMEN: Positive bowel sounds, soft, nontender to palpation. LABORATORY DATA AND IMAGIN. On 02/20/2018, CT of the abdomen and pelvis. Impression "abnormal urinary bladder wall with ronni ed prominence of seminal vesicles. Correlate clinically. Constipation with prominent distention of the rectosigmoid colon. Hazy alveolar opacification of the imaged right lower lobe, which may be on the basis of pneumonitis in the correct clinical context. Chronic renal disease as evidenced by bila teral atrophic heterogeneous cystic kidneys ". 2. On 02/18/2018, echocardiogram, summary "ejection fraction is visually estimated at 60%-65%. Grad e I/III diastolic dysfunction. Mild concentric left ventricular hypertrophy. Septal bounce consiste nt with BBB. Mild mitral regurgitation. Mild tricuspid regurgitation. Right ventricular systolic p ressure estimated at 37 mmHg. Mild pulmonic regurgitation." DISPOSITION: [facility]. Greater than 30 minutes spent coordinating discharge for the patient.
[2018-02-24 16:48] VITALS: BP 101/62; TEMP 97.3
== END 2018-02-24 20:15 | disposition home or self-care (01) | DRG 91 ==
LOC: ERS 08:24 → 2SE 11:45
PROVIDERS: ADMIT Internal Medicine; ATTEND Internal Medicine
DX: G92 Toxic encephalopathy (principal); J18.9 Pneumonia, unspecified organism; N18.6 End stage renal disease; I12.0 Hypertensive chronic kidney disease with stage 5 chronic kidney disease or end stage renal disease; R56.9 Unspecified convulsions; N32.89 Other specified disorders of bladder; I69.320 Aphasia following cerebral infarction; K56.41 Fecal impaction; Z99.2 Dependence on renal dialysis; F32.9 Major depressive disorder, single episode, unspecified; N41.1 Chronic prostatitis; Z87.440 Personal history of urinary (tract) infections
CPT/HCPCS: 36415; 36416; 70450; 70496; 70498; 71045; 74177; 76770; 76856; 80048; 80053; 80061; 80177; 80185; 81001; 82553; 83605; 83735; 84484; 85025; 85610; 85730; 87040; 87086; 87340; 90935; 93005; 93306; 94760; 96374; A4216; G0257; G8978-GP-CN; G8979-GP-CK; G8987-GO-CM; G8988-GO-CJ; G8996-GN-CK; G8997-GN-CJ; J0456; J0696; J1644; J1953; J1956; J2405; J7050; Q2009; S0028

== ENCOUNTER 2018-03-06 02:45 | Inpatient (IN) | payer MEDICARE ==
[2018-03-06 03:24] LABS: #Basophils 0.1 thou/uL (0.0-0.2); #Eosinphils 0.1 thou/uL (0.0-0.7); #Lymphocytes 1.7 thou/uL (1.20-3.40); #Monocytes 0.5 thou/uL (0.11-0.59); #Neutrophils 2.2 thou/uL (1.40-6.50); %Basophils 2.1 % (0.0-1.0); %Eosinophils 3.1 % (0.0-10.0); %Lymphocytes 37.1 % (21.0-51.0); %Monocytes 10.1 % (0.0-10.0); %Neutrophils 47.6 % (42.0-75.0); Hemoglobin 12.3 g/dL (14.0-18.0); Mean Corpuscular HGB CONC 33.1 g/dL (32.0-36.0); Mean Corpuscular Hemoglobin 28.7 pg (27.0-31.0); Mean Corpuscular Volume 86.9 fL (78.0-98.0); Mean Platelet Volume 9.5 fL (7.4-10.4); Platelet Count 216 thou/uL (130-400); RBC Distribution Width 15.1 % (11.5-14.5); Red Blood Cell (RBC) Count 4.27 mill/uL (4.70-6.10); White Blood Cell (WBC) Count 4.7 thou/uL (4.8-10.8)
[2018-03-06 04:51] LABS: Chloride 102 mmol/L (98-107); Potassium 4.3 mmol/L (3.5-5.1); Sodium 138 mmol/L (136-145)
[2018-03-06 04:52] LABS: Calcium 9.7 mg/dL (7.8-10.44); Glucose 63 mg/dL (70-105)
[2018-03-06 04:53] LABS: Globulin 4.6 g/dL (2.4-3.5); Protein, Total 8.6 g/dL (6.0-8.3)
[2018-03-06 04:54] LABS: Alcohol Less than 10 mg/dL (Less than 10); Anion Gap 16 mmol/L (10-20); Bilirubin, Total 0.4 mg/dL (0.2-1.2); Carbon Dioxide 24 mmol/L (22-29)
[2018-03-06 04:55] LABS: Alkaline Phosphatase 140 U/L (40-150)
[2018-03-06 04:56] LABS: Calc. Creatinine Clearance 0 mL/min (70-130); Estimated GFR-MDRD 11
[2018-03-06 04:57] LABS: AST (SGOT) 22 U/L (5-34); Acetaminophen Less than 6.0 mcg/mL (10.0-30.0); BUN (Urea Nitrogen) 23 mg/dL (8.9-20.6); Salicylate Less than 8.0 mg/dL (15.0-30.0)
[2018-03-06 04:58] LABS: ALT (SGPT) 31 U/L (8-55); CK (CPK) 28 U/L (30-200)
[2018-03-06] MEDS ORDERED: Dextrose 50% Abboject 50 ML SYRINGE ONE (05:45)
[2018-03-06 07:39] LABS: Troponin I Less than 0.010 ng/mL (< 0.028)
[2018-03-06 09:00] VITALS: BMI 16.8
--- NOTE | 2018-03-06 09:16 | CT ---
PRELIMINARY REPORT/[facility]/EMERGENTY AFTER-HOURS PROCEDURE CT Head Without Intravenous Contrast CLINICAL HISTORY: 52 years old, male; Signs and symptoms; Altered mental status/memory loss; Patient HX: Patient presen ts for evaluation of lethargy, patient presents for evaluation of mental status changes. TECHNIQUE: Axial computed tomography images of the head/brain without intravenous contrast. COMPARISON: No relevant prior studies available. FINDINGS: No definite acute skull fracture. Included paranasal sinuses are essentially clear. No acute intracranial hemorrhage or mass effect. Ventricle size is normal for age. There is decreased attenuation in the periventricular white matter, greater on the left, likely from microvascular disease. Extensive old infarct in the left periventricular white matter. No definite acute infarct by CT. MRI could be more sensitive/specific for detection, as clinically di rected. IMPRESSION: No acute intracranial bleed or mass effect. Changes of microvascular disease, and old left-sided infarct. No definite acute infarct by CT, see above. Thank you for allowing us to participate in the care of your patient. Dictated and Authenticated by: Silviano Ma MD 03/06/2018 4:58 AM Central Time ([place] & [place]) FINAL REPORT CT BRAIN: Date: 03/06/18 HISTORY: Altered mental status. Preliminary exam was performed by [facility]. I concur with the dictation from [facility]. Old areas of stroke seen in the left hemisphere d eep white matter. No acute intracranial abnormality seen. No significant interval change is seen sinc e the previous comparison CT from 02/17/18. POS: [facility]
--- NOTE | 2018-03-06 09:24 | RAD ---
AP VIEW CHEST: Date: 03/06/18 HISTORY: Seizure and stroke. FINDINGS: Comparison made to previous exam from 02/26/18. AP view of chest demonstrates a left jugular dialysis catheter in place. The lungs demonstrate some m ild pulmonary vascular congestion. No evidence of effusions, pneumonia, or pneumothorax seen. IMPRESSION: Mild pulmonary vascular congestion. Otherwise unremarkable AP view of chest. POS: [facility]
[2018-03-06 10:13] LABS: Troponin I Less than 0.010 ng/mL (< 0.028)
[2018-03-06] MEDS: Sodium Chloride 0.9% 1,000 ML IV SCH (11:38)
--- NOTE | 2018-03-06 11:54 | HP ---
CHIEF COMPLAINT: Altered mental status. HISTORY OF PRESENT ILLNESS: This patient is a 52-year-old male with a significant past medical histo ry. The patient had a history of a prior CVA in the left MCA distribution with hemorrhagic conversio n causing residual right-sided weakness and seizure disorder. The patient also has end-stage renal d isease on Thursday, Thursday, Thursday hemodialysis. The patient was admitted here on 02/24/2018 with a ltered mental status. The patient had significant workup including consultations with Neurology. Hi s workup was generally unrevealing. The patient's mental status did improve. The patient's family r eports that he still was not back to his baseline, but was improved at that visit. He was subsequent ly discharged to a rehab facility and was subsequently back home. The patient's sister and two daugh ters are present assisting with the history. They report that the patient was conversant and was try ing to get up and around him well at home. Yesterday, however, while he was at dialysis, he was slee ping and there was some concern that he had some facial droop. I called the family, but it did not a ppeared to be significant and the patient essentially went back to sleep. Later in the day, a chance r family member noted the patient to be drooling and they checked on him at that point and he was a b it altered, but by 2:00 in the morning he was still significantly altered and had not gotten up or tu rned up the lights in his room, so they went to check on him. They confirmed that the patient was no t responsive to them at that point and they called EMS. Family reports that this is very similar to the episode he had previously. They report it took him about 2 days before he started coming out of the symptoms of depressed mentation. There was no witnessed seizure at his previous admission and th ere was no witnessed seizure on this occasion either. REVIEW OF SYSTEMS: Not possible with the patient, but the family members report that he has been eat ing and drinking and having normal bowel movements and report no specific concerns. PAST MEDICAL HISTORY: Notable for the above-mentioned left MCA artery distribution cerebrovascular a ccident with hemorrhagic conversion. Subsequent to that, patient had right-sided weakness. He also had dysphagia and required a PEG tube that was subsequently removed when his dysphagia improved. Has a history of seizure disorder. While the patient was hospitalized last time, he had some adjustment s in his medications including the Dilantin and the Keppra. Patient has end-stage renal disease on M , Thursday and Thursday per Dr. Roland Patel. PAST MEDICAL HISTORY: History of encephalopathy related to prior urinary tract infection. PAST SURGICAL HISTORY: Dialysis fistula, PEG placement with subsequent removal and cystoscopy for pr ior urethral stricture with no indication for intervention noted. SOCIAL HISTORY: The patient lives at home with his sister and daughters. He is able to ambulate wit h some assistance in a walker. He has no dietary restrictions. I am aware of at this point. ALLERGIES: None. CURRENT MEDICATIONS: Still need to be completely confirmed, but appeared to be Keppra 500 p.o. b.i.d ., Fleet enema p.r.n., sevelamer carbonate 3 tabs p.o. t.i.d., Senokot-S 2 tabs p.o. b.i.d., Florasto r 250 every day, MiraLax 17 grams b.i.d., Dilantin 300 every day, gabapentin 50 mg t.i.d., Pepcid 20 mg q.p.m., fluoxetine 20 mg daily, Colace 100 mg b.i.d., baclofen 10 mg b.i.d., atorvastatin 10 mg at bedtime and aspirin 81 mg every day. PHYSICAL EXAMINATION: VITAL SIGNS: BP was 155/100, pulse 75, respirations 10, O2 sat 100% on room air. GENERAL APPEARANCE: Thin age appropriate male. He is in no distress. He is not verbally responsive . HEENT: Pupils are slightly dilated and very sluggish and has no OP lesions. NECK: Supple and symmetric without lymphadenopathy, JVD, or carotid bruit. He has a left-sided tunn eled dialysis catheter. HEART: Regular rate and rhythm without murmurs, gallops or rubs. LUNGS: Clear to auscultation bilaterally. ABDOMEN: Soft, nondistended, positive bowel sounds. EXTREMITIES: Warm and dry with no edema. NEUROLOGIC: Again, the patient is not responsive. He does open his eyes occasionally, but he is not focusing or making any eye contact. He does seem to have reasonably good range of motion of the nec k with no evidence of resistance or rigidity. He has some occasional spontaneous movement on his lef t side. He has some resistance to arm drop on the left. IMAGING DATA: Head CT shows no intracranial bleed or mass. Old infarct is noted. Chest x-ray looks clear. EKG shows some possible LVH. LABORATORY DATA: Sodium 138, potassium 4.3, chloride 102, CO2 is 24, BUN 23, creatinine is 6.56, glu cose 63 with subsequent 140. LFTs normal. CK 28. Albumin 4.0. Salicylate 8.0 and acetaminophen 6. 0. Keppra level is 27.7. Plasma alcohol less than 10. Dilantin level was 9.4, white count 4.7, hem oglobin 12.3 and platelets 216. ASSESSMENT AND PLAN: 1. Altered mental status. Etiology is unclear. This patient was just here and discharged 10 days a go with very similar symptoms. He had subsequently gone to rehabilitation. At that time, the patien t had significant workup which failed to show any specific cause for the altered mentation. He did h ave some of his medications for seizures adjusted at that time. There is a fairly broad differential here, but I believe that the patient is likely having some type of seizure activity and then going i nto a postictal phase, which is what we are witnessing. We will reconsult Neurology and may need to add some IV Dilantin if the patient is not capable of taking p.o. soon. At this point, he is not cap able of taking anything by mouth. 2. History of hypertension. We will continue with the monitoring of his blood pressure. He had emmett e elevated levels and he was here previously. 3. History of cerebrovascular accident with hemorrhagic conversion in the left MCA distribution with persistent right-sided weakness. As the patient's mentation improves, we will work with [facility]. 4. History of some dysphagia. We will need to be careful to avoid any p.o. till the patient is full y awake. 5. End-stage renal disease. We will consult Nephrology to continue with his usual dialysis regimen.
[2018-03-06] MEDS: hydrALAZINE 20 MG/ML VIAL SLOW IVP PRN (12:51)
[2018-03-06] MEDS: Fosphenytoin Sodium 100 MG in Sodium Chloride 0.9% 50 ML IVPB SCH ×2 (15:44→22:06)
--- NOTE | 2018-03-06 17:09 | CON ---
DATE OF CONSULTATION: 03/06/2018 REFERRING PHYSICIAN: Silviano Segovia MD. REASON FOR CONSULTATION: Altered mental status. HISTORY OF PRESENT ILLNESS: Mr. Nichols is a pleasant 52-year-old - [place] male with a history of stroke and seizure disorder, who presented with changes in mentation. History is obtained from patient's family members who are present at bedside. Sister reports that patient had woke up on Thursday morning in his normal state of health, he had gone to dialysis and had come back from dialysis around 6:00 p.m., and at that time, he was doing well. The patient's mother and another sister were at the house with him, at which time he was doing normal and had gone to sleep around 9:00 p.m. after having supper. Around 1:00 a.m., mother went to go to check on him and noticed that his lights were on, which is unusual for him. She tried to wake him up and at that time, she noticed that he was somewhat confused. As his confusion was not improving, she decided to present him to the [facility] for further evaluation. He was recently admitted on 02/22/2018 with a similar episode of confusion, at which time his mentation started improving after 1-2 days. They did not notice any seizure type activity, although he was by himself at the time between 9:00 p.m. and 1:00 a.m. before he was found confused. Past medical history, past surgical history, social history, family history, current medications, allergies are reviewed and are as dictated in H and P note done by Dr. Silviano Segovia, dated 03/06/2018. REVIEW OF SYSTEMS: Unable to perform. PHYSICAL EXAMINATION: VITAL SIGNS: Blood pressure of 127/77, pulse of 89, temperature of 96.5, respirations of 20, and O2 sats of 98% on room air. GENERAL: Thin-appearing, -Mac[place] male, who is drowsy and not following commands. RESPIRATORY: Clear to auscultation bilaterally. CARDIOVASCULAR: Regular rate and rhythm. NEUROLOGIC: Mental status: The patient is drowsy appearing. He opens his eyes to verbal stimuli, but does not follow any commands. He nods his head to the questions, but again does not follow any commands. Speech and language: Unable to evaluate as he is not talkative during this examination. Cranial nerves: Pupils are 3 mm and reactive. Visual lerma are full to threat. Extraocular muscles are unable to evaluate. Face appears symmetric. Tongue and uvula appear midline. Motor exam showed increased spastic right upper and right lower extremity. He has 0/5 strength in the right upper and right lower extremity. He is spontaneously moving his left upper and left lower extremity. LABORATORY DATA: Reviewed, which included CBC, CMP, lactic acid, CPK, troponin , Dilantin level, Keppra level, and plasma alcohol level, which is significant for WBC of 4.7, hemoglobin 12.3, hematocrit of 37.1, BUN of 23, creatinine 6.56 , Dilantin level was 9.4, otherwise unremarkable. IMAGING STUDIES: CT head without contrast was reviewed, which showed no acute intracranial abnormality. IMPRESSION: 1. Altered mental status, could be toxic metabolic encephalopathy versus postictal state. 2. Prior history of stroke. 3. Prior history of seizure. PLAN: Mr. Nichols is a pleasant 52-year-old -[place] male, who presented with the episode of confusion. This may have been secondary to toxic metabolic encephalopathy. This could also be secondary to postictal state. One of my concerns is that after he takes Dilantin in the morning and when he comes back from dialysis, his Dilantin level is subtherapeutic, which results in an unwitnessed seizure resulting in confusion and altered mental status. I would recommend switching his Dilantin to 400 mg at bedtime. I have advised the patient's family that he should take his Dilantin on the days of dialysis or immediately after he comes back from dialysis to prevent his seizures. Sister was concerned that Keppra may be making him feel not well, for which reason, I may switch his Keppra to 500 mg in the morning only to see if that helps some of the lethargicness and tiredness that he may be experiencing. Thank you for your consultation. LENIN
[2018-03-06] MEDS: Gabapentin 100 MG CAP PO SCH (22:02)
[2018-03-06] MEDS: Docusate 100 MG CAP PO SCH (22:02)
[2018-03-06] MEDS: Senokot S 8.6-50 MG TAB PO SCH (22:03)
[2018-03-06] MEDS: Heparin 5,000 UNITS/ML VIAL SC SCH (22:03)
[2018-03-06] MEDS: Atorvastatin Calcium 10 MG TAB PO SCH (22:04)
[2018-03-06] MEDS: Polyethylene Glycol 3350 17 GM Packet PO SCH (22:04)
[2018-03-06] MEDS: Baclofen 10 MG TAB PO SCH (22:05)
[2018-03-06] MEDS: Famotidine/PF 20 mg/2ml Vial SLOW IVP SCH (22:29)
[2018-03-07] MEDS: Ondansetron HCl/PF 4 MG/2 ML Vial IVP PRN (02:01)
[2018-03-07 04:52] LABS: #Eosinphils 0.1 thou/uL (0.0-0.7); #Lymphocytes 1.3 thou/uL (1.20-3.40); #Monocytes 0.6 thou/uL (0.11-0.59); #Neutrophils 3.8 thou/uL (1.40-6.50); %Basophils 0.7 % (0.0-1.0); %Eosinophils 1.6 % (0.0-10.0); %Lymphocytes 22.2 % (21.0-51.0); %Monocytes 10.1 % (0.0-10.0); %Neutrophils 65.4 % (42.0-75.0); Hemoglobin 11.5 g/dL (14.0-18.0); Mean Corpuscular HGB CONC 32.1 g/dL (32.0-36.0); Mean Corpuscular Hemoglobin 27.8 pg (27.0-31.0); Mean Corpuscular Volume 86.6 fL (78.0-98.0); Platelet Count 233 thou/uL (130-400); Red Blood Cell (RBC) Count 4.15 mill/uL (4.70-6.10); White Blood Cell (WBC) Count 5.8 thou/uL (4.8-10.8)
[2018-03-07 05:21] LABS: ALT (SGPT) 23 U/L (8-55); AST (SGOT) 17 U/L (5-34); Albumin 3.8 g/dL (3.5-5.0); Alkaline Phosphatase 142 U/L (40-150); Anion Gap 12 mmol/L (10-20); BUN (Urea Nitrogen) 29 mg/dL (8.9-20.6); Bilirubin, Total 0.4 mg/dL (0.2-1.2); Calc. Creatinine Clearance 9 mL/min (70-130); Calcium 9.4 mg/dL (7.8-10.44); Carbon Dioxide 26 mmol/L (22-29); Chloride 104 mmol/L (98-107); Estimated GFR-MDRD 9; Globulin 4.3 g/dL (2.4-3.5); Glucose 107 mg/dL (70-105); Protein, Total 8.1 g/dL (6.0-8.3); Sodium 137 mmol/L (136-145)
[2018-03-07] MEDS: Famotidine 20 MG TAB PO SCH (05:36)
[2018-03-07] MEDS: levETIRAcetam 500 MG TAB PO SCH ×2 (05:37→09:10)
[2018-03-07] MEDS: FLUoxetine HCl 20 MG CAP PO SCH (09:16)
[2018-03-07] MEDS: Docusate 100 MG CAP PO SCH (09:16)
[2018-03-07] MEDS: Baclofen 10 MG TAB PO SCH ×2 (09:16→14:50)
[2018-03-07] MEDS: Senokot S 8.6-50 MG TAB PO SCH (09:16)
[2018-03-07] MEDS: Aspirin 81 mg Enteric Coated Tablet PO SCH (09:16)
[2018-03-07] MEDS: Sevelamer Carbonate 800 MG TAB PO SCH ×3 (09:16→17:08)
[2018-03-07] MEDS: Saccharomyces boulardii 250 MG CAP PO SCH (09:16)
[2018-03-07] MEDS: Gabapentin 100 MG CAP PO SCH ×2 (09:16→14:50)
[2018-03-07] MEDS: Polyethylene Glycol 3350 17 GM Packet PO SCH (09:17)
[2018-03-07] MEDS: Heparin 5,000 UNITS/ML VIAL SC SCH ×2 (09:17→22:18)
[2018-03-07] MEDS: Fosphenytoin Sodium 100 MG in Sodium Chloride 0.9% 50 ML IVPB SCH ×3 (09:36→22:16)
[2018-03-07] MEDS: hydrALAZINE 20 MG/ML VIAL SLOW IVP PRN (09:42)
--- NOTE | 2018-03-07 09:55 | PDOC.PN ---
- Subjective Encounter Start Date: 03/07/18 Encounter Start Time: 09:53 -: non-verbal - Objective Resuscitation Status: Resuscitation Status FULL:Full Resuscitation Vital Signs & Weight: Vital Signs (12 hours) Temp Pulse Resp BP BP Pulse Ox 03/07/18 09:42 90 188/105 H 03/07/18 07:30 97.7 F 90 14 188/105 H 98 03/07/18 07:20 97.7 F 90 14 03/07/18 04:00 98.3 F 86 18 165/103 H 99 03/07/18 00:00 98.2 F 90 18 176/104 H 98 Weight Weight 124 lb I&O: 03/06/18 03/07/18 03/08/18 06:59 06:59 06:59 Intake Total 1 101 Balance 1 101 Result Diagrams: 03/07/18 04:26 03/07/18 04:26 Phys Exam - Physical Examination Constitutional: NAD Still encephalopathic JVD, but tunneled catheter may be effecting that. Respiratory: no wheezing, no rales, no rhonchi Cardiovascular: RRR, no significant murmur, no rub Gastrointestinal: soft, no distention, positive bowel sounds Musculoskeletal: no edema Neurological: non-focal Opening eyes at times, but not interactive. Dx/Plan (1) Acute encephalopathy Code(s): G93.40 - ENCEPHALOPATHY, UNSPECIFIED Status: Acute Comment: Presumably post-ictal. Waxing and waning. (2) Complex partial seizure Code(s): G40.209 - LOCAL-REL SYMPTC EPI W CMPLX PRT SEIZ,NOT NTRCT,W/O STAT EPI Status: Acute Qualifiers: Epilepsy type: partial symptomatic Comment: Dr. Wild concerned that he is having the Dilantin dialyzed off. Made changes in regimen. (3) ESRD (end stage renal disease) on dialysis Code(s): N18.6 - END STAGE RENAL DISEASE; Z99.2 - DEPENDENCE ON RENAL DIALYSIS Status: Chronic Comment: Dr Alonzo childs. Still on track with HD. (4) HTN (hypertension) Code(s): I10 - ESSENTIAL (PRIMARY) HYPERTENSION Status: Chronic Comment: BP was not as high during the last visit. He was on minoxidil at one point. Continue with IV Hydralazine PRN. He is not reliably taking meds now. (5) h/o hemorrhagic cva Status: Chronic Comment: with right hemiplegia, aphasia and dysphagia (6) Dysphagia Code(s): R13.10 - DYSPHAGIA, UNSPECIFIED Status: Acute Comment: Hx of PEG, but improved and it was removed. Eval's by [employer] and cleared for po's on 2017. - Plan * Continue to support until encephalopathy improves. Took a couple of days last time. Still requiring IV meds.
[2018-03-07] MEDS: Sodium Chloride 0.9% 1,000 ML IV SCH (15:29)
[2018-03-07] MEDS: Famotidine/PF 20 mg/2ml Vial SLOW IVP SCH (22:17)
[2018-03-08] MEDS: Atorvastatin Calcium 10 MG TAB PO SCH ×2 (02:55→21:32)
[2018-03-08] MEDS: Baclofen 10 MG TAB PO SCH ×4 (02:55→21:31)
[2018-03-08] MEDS: Docusate 100 MG CAP PO SCH ×3 (02:55→21:32)
[2018-03-08] MEDS: Polyethylene Glycol 3350 17 GM Packet PO SCH ×3 (02:56→21:29)
[2018-03-08] MEDS: Famotidine 20 MG TAB PO SCH ×2 (02:56→21:33)
[2018-03-08] MEDS: levETIRAcetam 500 MG TAB PO SCH ×3 (02:56→21:31)
[2018-03-08] MEDS: Senokot S 8.6-50 MG TAB PO SCH ×3 (02:56→21:31)
[2018-03-08] MEDS: Gabapentin 100 MG CAP PO SCH ×4 (02:57→21:31)
[2018-03-08 07:10] LABS: Anion Gap 18 mmol/L (10-20); BUN (Urea Nitrogen) 36 mg/dL (8.9-20.6); Calc. Creatinine Clearance 8 mL/min (70-130); Calcium 9.6 mg/dL (7.8-10.44); Carbon Dioxide 21 mmol/L (22-29); Chloride 106 mmol/L (98-107); Estimated GFR-MDRD 8; Glucose 73 mg/dL (70-105); Potassium 5.8 mmol/L (3.5-5.1); Sodium 139 mmol/L (136-145)
[2018-03-08] MEDS: Fosphenytoin Sodium 100 MG in Sodium Chloride 0.9% 50 ML IVPB SCH ×3 (11:38→21:28)
[2018-03-08] MEDS: Sevelamer Carbonate 800 MG TAB PO SCH ×3 (11:38→16:08)
[2018-03-08] MEDS: Heparin 5,000 UNITS/ML VIAL SC SCH ×2 (11:39→21:47)
[2018-03-08] MEDS: Saccharomyces boulardii 250 MG CAP PO SCH (11:41)
[2018-03-08] MEDS: FLUoxetine HCl 20 MG CAP PO SCH (11:42)
[2018-03-08] MEDS: Aspirin 81 mg Enteric Coated Tablet PO SCH (12:02)
[2018-03-08] MEDS: Sodium Chloride 0.9% 1,000 ML IV SCH (12:04)
--- NOTE | 2018-03-08 13:18 | PDOC.PN ---
- Subjective Encounter Start Date: 03/08/18 Encounter Start Time: 13:10 Subjective: f/u for encephalopathy of unclear etiology, ESRD on HD and prior CVA -: with residual R hemiparesis. Still lethargic. - Objective Resuscitation Status: Resuscitation Status FULL:Full Resuscitation MAR Reviewed: Yes Vital Signs & Weight: Vital Signs (12 hours) Temp Pulse Resp BP Pulse Ox 03/08/18 11:46 98.3 F 100 16 158/91 H 99 03/08/18 07:44 98.1 F 86 16 156/94 H 97 03/08/18 04:00 98.2 F 92 16 172/94 H 95 Weight Admit Weight 124 lb Weight 124 lb I&O: 03/07/18 03/08/18 03/09/18 06:59 06:59 06:59 Intake Total 1 1301 Balance 1 1301 Result Diagrams: 03/07/18 04:26 03/08/18 05:41 Additional Labs: Accuchecks 03/06/18 04:57 POC Glucose 80 Microbiology 03/06/18 07:03 Venous blood - Left Foot Blood Culture - Preliminary NO GROWTH AT 48 HOURS 03/06/18 06:30 Venous blood - Left Arm Blood Culture - Preliminary NO GROWTH AT 48 HOURS Laboratory Tests 03/06/18 03/06/18 03/06/18 03:03 03:03 03:12 Hgb 12.3 L Potassium Creatinine Phenytoin 9.4 L Levetiracetam 27.7 Plasma Alcohol 03/06/18 03/07/18 04:26 04:26 Hgb Potassium 5.0 Creatinine 7.86 H Phenytoin Levetiracetam Plasma Alcohol Less than 10 Radiology Reviewed by me: Yes (CT brain - old L hemispheric CVA, no acute process) EKG Reviewed by me: Yes (Tele - Sinus tachycardia in 100's) Phys Exam - Physical Examination Constitutional: NAD awake, nods to questions, one-word responses HEENT: PERRLA, sclera anicteric, oral pharynx no lesions Neck: no nodes, no JVD, supple, full ROM Respiratory: no wheezing, no rales, no rhonchi, clear to auscultation bilateral tachycardic S1, S2 Cardiovascular: no significant murmur, no rub, gallop Gastrointestinal: soft, non-tender, no distention, positive bowel sounds Musculoskeletal: no edema, pulses present R hemiparesis, non-verbal Spontaenous movement of LUE Skin: no rash, normal turgor, cap refill <2 seconds Dx/Plan (1) Acute encephalopathy Code(s): G93.40 - ENCEPHALOPATHY, UNSPECIFIED Status: Acute Comment: Presumably post-ictal. Waxing and waning symptoms, supportive mgmt (2) Complex partial seizure Code(s): G40.209 - LOCAL-REL SYMPTC EPI W CMPLX PRT SEIZ,NOT NTRCT,W/O STAT EPI Status: Acute Qualifiers: Epilepsy type: partial symptomatic Comment: Continue Keppra 500mg BID, Phenytoin, Neurology consult appreciated (3) ESRD (end stage renal disease) on dialysis Code(s): N18.6 - END STAGE RENAL DISEASE; Z99.2 - DEPENDENCE ON RENAL DIALYSIS Status: Chronic Comment: HD completed today, continue maintenance HD per Renal service (4) HTN (hypertension) Code(s): I10 - ESSENTIAL (PRIMARY) HYPERTENSION Status: Chronic Qualifiers: Hypertension type: essential hypertension Qualified Code(s): I10 - Essential (primary) hypertension Comment: BP was not as high during the last visit. He was on minoxidil at one point. Continue with IV Hydralazine PRN. Encourage compliance. (5) Tachycardia Code(s): R00.0 - TACHYCARDIA, UNSPECIFIED Status: Acute Comment: Sinus tachycardia on tele monitor, continue to follow, no current associated symptoms , ? volume relationship - Plan Stable overall -: Continue Tele monitoring for tachycardia -: Continue Keppra, Phenytoin -: D/C IV Keppra -: OOB with PT * Likely home in 24h * AM lab: BMP
[2018-03-08] MEDS ORDERED: Heparin 10,000 UNITS/ 10 ML VIAL ONE (14:37)
[2018-03-08] MEDS: Ondansetron HCl/PF 4 MG/2 ML Vial IVP PRN (16:08)
[2018-03-08] MEDS: Famotidine/PF 20 mg/2ml Vial SLOW IVP SCH (21:29)
[2018-03-09] MEDS: Sodium Chloride 0.9% 1,000 ML IV SCH (05:08)
[2018-03-09 05:58] LABS: Anion Gap 14 mmol/L (10-20); BUN (Urea Nitrogen) 25 mg/dL (8.9-20.6); Calc. Creatinine Clearance 11 mL/min (70-130); Carbon Dioxide 25 mmol/L (22-29); Chloride 101 mmol/L (98-107); Estimated GFR-MDRD 12; Glucose 74 mg/dL (70-105); Potassium 4.3 mmol/L (3.5-5.1); Sodium 136 mmol/L (136-145)
[2018-03-09] MEDS: Aspirin 81 mg Enteric Coated Tablet PO SCH (10:34)
[2018-03-09] MEDS: levETIRAcetam 500 MG TAB PO SCH (10:34)
[2018-03-09] MEDS: Gabapentin 100 MG CAP PO SCH (10:34)
[2018-03-09] MEDS: Baclofen 10 MG TAB PO SCH (10:34)
[2018-03-09] MEDS: Docusate 100 MG CAP PO SCH (10:35)
[2018-03-09] MEDS: Polyethylene Glycol 3350 17 GM Packet PO SCH (10:35)
[2018-03-09] MEDS: Saccharomyces boulardii 250 MG CAP PO SCH (10:35)
[2018-03-09] MEDS: Sevelamer Carbonate 800 MG TAB PO SCH ×2 (10:35→14:09)
[2018-03-09] MEDS: Heparin 5,000 UNITS/ML VIAL SC SCH (10:35)
[2018-03-09] MEDS: Fosphenytoin Sodium 100 MG in Sodium Chloride 0.9% 50 ML IVPB SCH (10:36)
[2018-03-09] MEDS: FLUoxetine HCl 20 MG CAP PO SCH (10:36)
[2018-03-09] MEDS: Senokot S 8.6-50 MG TAB PO SCH (10:42)
--- NOTE | 2018-03-09 11:12 | DIS ---
DATE OF ADMISSION: 03/06/2018 DATE OF DISCHARGE: 03/09/2018 DISCHARGE DIAGNOSES: 1. Acute encephalopathy, likely metabolic, improved. 2. Complex partial seizure disorder, stable. 3. End-stage renal disease with hemodialysis. 4. Hypertension, stable. 5. Sinus tachycardia, resolved. 6. 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 CONSULTATIONS: Dr. Wild with Neurology Service. PERTINENT LABORATORY AND X-RAY FINDINGS: Potassium ranged between 4.3-5.8. Creatinine ranged betwee n 6.21-8.97. CBC showed a hemoglobin ranging between 11.5-12.3. Phenytoin level 9.4. Keppra level 27.7. Blood cultures x2 dated 03/06/2018 showed no growth at 48 hours. Blood cultures x2 from 03/08 showed no growth to date. CT of the brain without contrast dated 03/06/2018 showed no acute in tracranial process. Old left-sided infarct noted. Portable chest x-ray dated 03/06/2018 showed mild pulmonary vascular prominence. HOSPITAL COURSE: The patient was initially admitted to the stroke unit after presenting with altered mental status in the context of prior left-sided MCA distribution ischemic cerebrovascular accident with hemorrhagic conversion with residual right hemiparesis and known seizure disorder. The patient underwent extensive evaluation including neuro imaging showing no acute central process. The patient underwent evaluation and concerning metabolic parameters including seizure medications to include Di lantin and Keppra. The patient was evaluated by the Neurology Service with recommendations to increa se Dilantin to 400 mg at bedtime in addition to Keppra 500 mg b.i.d. The patient continued to clinic ally improve and obtain baseline functional status with general supportive measures. The patient was not observed with recurrent seizure activity during the hospital course. The patient also adjustmen t to his Dilantin dosing in conjunction with hemodialysis after concern for potential subtherapeutic Dilantin levels with hemodialysis. After adjustments to the Dilantin dosing regimen, the patient rem ained clinically stable. The patient received maintenance hemodialysis throughout the hospital cours e without complication. Telemetry monitoring showed a transient sinus tachycardia, which resolved an d patient remains in sinus mechanism. Of exam, the patient's time of discharge and discussed followu p instructions. The patient to return home on 03/09/2018 with Home Health Services. Overall, clinic ally stable and ready for discharge 03/09/2018. DISCHARGE MEDICATIONS: 1. Baclofen 10 mg p.o. t.i.d. 2. Prozac 20 mg p.o. daily. 3. Gabapentin 100 mg p.o. t.i.d. 4. Renvela 2400 mg p.o. t.i.d. 5. Enteric coated aspirin 81 mg p.o. daily. 6. Lipitor 10 mg p.o. at bedtime. 7. Colace 100 mg p.o. b.i.d. 8. Pepcid 20 mg p.o. daily. 9. Keppra 500 mg p.o. b.i.d. 10. Dilantin 400 mg p.o. at bedtime. 11. MiraLax 17 grams p.o. b.i.d. 12. Florastor 250 mg p.o. daily. 13. Senokot S 2 tablets p.o. b.i.d. FOLLOWUP: The patient will follow up with Dr. Luis Kyle within 7 days of discharge. The patient will follow up with Dr. Roland Patel and to call his office for appointment time and date. CONDITION ON DISCHARGE: Fair. ACTIVITY: Ad kayla. DIET: Renal. CODE STATUS: FULL. SPECIAL INSTRUCTIONS: Patient to receive Home Health Services including physical and occupational th erapy after discharge. DISPOSITION: Home 03/09/2018. Total time preparing and coordinating discharge 36 minutes.
[2018-03-09 12:34] VITALS: TEMP 98.3
[2018-03-09 13:16] VITALS: BP 127/83
--- NOTE | 2018-03-13 16:37 | EKG ---
Test Reason : Blood Pressure : / mmHG Vent. Rate : 078 BPM Atrial Rate : 078 BPM P-R Int : 174 ms QRS Dur : 090 ms QT Int : 430 ms P-R-T Axes : 043 015 042 degrees QTc Int : 490 ms Normal sinus rhythm Minimal voltage criteria for LVH, may be normal variant Prolonged QT Abnormal ECG Confirmed by LISA BACH ([id number]), assistant production editor PAWAN JENSEN ([id number]) on 03/13/2018 4:37:03 PM Referred By: Confirmed By:LISA BACH
--- NOTE | 2018-03-15 13:38 | PQF ---
MARY HENNESSYNESSA DO [id number] CLINICAL DOCUMENTATION CLARIFICATION FORM: POST DISCHARGE DATE: Dr. Appiah Please exercise your independent, professional judgment in responding to the clarification form. Clinical indicators are provided on the bottom of this form for your review Please clarify the cause of patient's acute metabolic encephalopathy: Please check appropriate box(s): [ x ] Acute Metabolic Encephalopathy due to: : [ x ] Complex partial seizure disorder secondary to previous cerebrovascular accident [ ] Complex partial seizure disorder unspecified [ ] Other diagnosis (please specify) [ ] Unable to determine cause In addition, please specify: Present on Admission (POA): [ x ] Yes [ ] No [ ] Unable to determine For continuity of documentation, please document condition throughout progress notes and discharge summary. Thank You. CLINICAL INDICATORS - SIGNS / SYMPTOMS / LABS Per H&P: Altered mental status. Etiology is unclear. Discharged 10 days ago with very similar symptoms. There is a fairly broad differential here, but I believe that the patient is likely having some type of seizure activity and then going into a postictal phase, which is what we are witnessing. Per neuro consult: Presented with episode of confusion. This may have been secondary to toxic metabolic encephalopathy. This could also be secondary to postictal state. Concern after coming from dialysis with subtherapeutic Dilantin level which results in an unwitnessed seizure resulting in confusion and altered mental status. Per discharge summary: After adjustment to his Dilantin dosing in conjunction with hemodialysis, the patient remained clinically stable. RISK FACTORS (per H&P/progress notes/neuro consult) Previous CVA. Seizure disorder. ESRD with hemodialysis. TREATMENTS: (per neurology consult/discharge summary) Neurology consult. Increase Dilantin dosage/add Keppra. (This form is maintained as a part of the permanent medical record) 2014 [employer] All Rights Reserved Ksenia [email or web address] [phone] LENIN
== END 2018-03-09 14:12 | disposition home health service (06) | DRG 56 ==
LOC: ERS 02:45 → OBSVTOIN 06:28 → ERHOLD 06:28 → 2SE 08:41
PROVIDERS: ADMIT Hospitalist; ATTEND Hospitalist
PROC: 5A1D70Z Performance of Urinary Filtration, Intermittent, Less than 6 Hours Per Day (ICD-10-PCS; principal; 2018-03-08)
DX: I69.398 Other sequelae of cerebral infarction (principal); G93.41 Metabolic encephalopathy; N18.6 End stage renal disease; I69.351 Hemiplegia and hemiparesis following cerebral infarction affecting right dominant side; I12.0 Hypertensive chronic kidney disease with stage 5 chronic kidney disease or end stage renal disease; G40.209 Localization-related (focal) (partial) symptomatic epilepsy and epileptic syndromes with complex partial seizures, not intractable, without status epilepticus; I69.320 Aphasia following cerebral infarction; I69.391 Dysphagia following cerebral infarction; R13.10 Dysphagia, unspecified; Z99.2 Dependence on renal dialysis; Z79.82 Long term (current) use of aspirin; Z79.899 Other long term (current) drug therapy
CPT/HCPCS: 36415; 36416; 70450; 71045; 80048; 80053; 80177; 80185; 80307; 82550; 83605; 84484; 85025; 87040; 90935; 93005; 96374; 96375; G0257; G8978-GP-CN; G8979-GP-CK; G8996-GN-CK; G8997-GN-CI; J0360; J1644; J1953; J2405; J7050; Q2009; S0028

== ENCOUNTER 2018-03-30 00:46 | Emergency (ER) | payer MEDICARE ==
[2018-03-30 01:36] LABS: Acetaminophen Less than 6.0 mcg/mL (10.0-30.0); Alcohol Less than 10 mg/dL (Less than 10); Salicylate Less than 8.0 mg/dL (15.0-30.0)
[2018-03-30 01:37] LABS: ALT (SGPT) 23 U/L (8-55); AST (SGOT) 17 U/L (5-34); Albumin 3.8 g/dL (3.5-5.0); Alkaline Phosphatase 163 U/L (40-150); Anion Gap 14 mmol/L (10-20); BUN (Urea Nitrogen) 14 mg/dL (8.9-20.6); Bilirubin, Total 0.3 mg/dL (0.2-1.2); Calc. Creatinine Clearance 0 mL/min (70-130); Calcium 9.1 mg/dL (7.8-10.44); Carbon Dioxide 30 mmol/L (22-29); Chloride 97 mmol/L (98-107); Estimated GFR-MDRD 16; Globulin 4.3 g/dL (2.4-3.5); Glucose 81 mg/dL (70-105); Lipase 18 U/L (8-78); Potassium 3.6 mmol/L (3.5-5.1); Protein, Total 8.1 g/dL (6.0-8.3); Sodium 137 mmol/L (136-145)
[2018-03-30 01:38] LABS: #Eosinphils 0.1 thou/uL (0.0-0.7); #Lymphocytes 0.8 thou/uL (1.20-3.40); #Monocytes 0.4 thou/uL (0.11-0.59); #Neutrophils 4.1 thou/uL (1.40-6.50); %Basophils 0.2 % (0.0-1.0); %Eosinophils 1.6 % (0.0-10.0); %Lymphocytes 14.5 % (21.0-51.0); %Monocytes 7.5 % (0.0-10.0); %Neutrophils 76.3 % (42.0-75.0); Hemoglobin 11.9 g/dL (14.0-18.0); Mean Corpuscular HGB CONC 32.1 g/dL (32.0-36.0); Mean Corpuscular Hemoglobin 28.3 pg (27.0-31.0); Mean Corpuscular Volume 88.3 fL (78.0-98.0); Mean Platelet Volume 10.1 fL (7.4-10.4); Platelet Count 183 thou/uL (130-400); RBC Distribution Width 15.5 % (11.5-14.5); Red Blood Cell (RBC) Count 4.19 mill/uL (4.70-6.10); White Blood Cell (WBC) Count 5.4 thou/uL (4.8-10.8)
[2018-03-30 02:41] LABS: Bilirubin Negative (Negative); Blood, Urine Trace (Negative); Clarity CLOUDY (Clear); Glucose, Urine (Dipstick) Negative (Negative); Leukocyte Small (Negative); Nitrite Negative (Negative); Protein, Urine (Dipstick) 100 mg/dL (Neg-Trace); Specific Gravity, Urine 1.014 (1.002-1.036); Urobilinogen 0.2 mg/dL (0.2-1.0); pH, Urine 8.5 (5.0-9.0)
[2018-03-30 02:44] LABS: Bacteria/HPF None Seen HPF (None Seen); RBC/HPF 0-3 HPF (0-3)
[2018-03-30 02:45] LABS: Pathc Cast-AUWi Flag 10.75 (0-2.49); Yeast-AUWi Flag 83.7 (0-25.0)
[2018-03-30 02:52] LABS: Amphetamine Not Detected (NotDetected); Barbiturates Screen Detected (NotDetected); Benzodiazepine Screen Not Detected (NotDetected); Cocaine Metabolite Screen Not Detected (NotDetected); Medtox Control Line Valid? VALID (VALID); Medtox Reader # READER 1; Methadone Not Detected (NotDetected); Methamphetamine Not Detected (NotDetected); Opiate Screen Not Detected (NotDetected); Oxycodone Screen Not Detected (NotDetected); Phencyclidine (PCP) Not Detected (NotDetected); THC/Cannabinoid Screen Not Detected (NotDetected); Tricyclic Screen Not Detected (NotDetected)
[2018-03-30 02:53] LABS: Transitional Epithelial NONE SEEN HPF (0-3)
[2018-03-30 02:54] LABS: Other Casts/LPF None Seen LPF (0-3 Hyaline); Renal Epithelial None Seen HPF (0-3); Yeast-All Forms None Seen HPF (None Seen)
[2018-03-30] MEDS ORDERED: Nitrofurantoin Monohyd/M-Cryst 100 MG CAP PO SCH (05:00)
--- NOTE | 2018-03-30 11:24 | RAD ---
CHEST ONE VIEW: HISTORY: A 52-year-old male with a history of altered mental status. Confusion. COMPARISON: 03/06/2018 FINDINGS: Monitor leads overly the chest. Heart size is within normal limits. Lungs are clear. IMPRESSION: No acute intrathoracic disease. POS: [facility]
--- NOTE | 2018-03-30 11:41 | CT ---
PRELIMINARY REPORT/[facility]/EMERGENTY AFTER-HOURS PROCEDURE CT Head Without Intravenous Contrast EXAM DATE/TIME: 03/30/2018 2:45 AM CLINICAL HISTORY: 52 years old, male; Signs and symptoms; Altered mental status/memory loss; Patient HX: 52 yo m presen ts to ed with AMS. Ems reports pt's family called ems because PT was acting different than normal/con fused. Ems reports PT is very sluggish, combative, and argumentative. Ems reports right sided deficit s from old CVA. Ems reports no HX of dementia. PT reports he is feeling alright right now, denies any pain. PT denies fall, denies trauma TECHNIQUE: Axial computed tomography images of the head/brain without intravenous contrast. COMPARISON: CT Brain WO Con 03/06/2018 3:39 AM FINDINGS: Brain: No evidence of acute intracranial hemorrhage, extraxial fluid or midline shift. No evidence of acute large vessel infarction. Cerebellum atrophic; otherwise, posterior fossa structures within nor mal limits. Chronic infarction involving left cerebral white matter and external capsule, stable. Ventricles: Mild prominence of the cerebral sulci and ventricles. Bones/joints: Normal. No acute fracture. Sinuses: Normal as visualized. No acute sinusitis. Mastoid air cells: Normal as visualized. No mastoid effusion. Soft tissues: Normal. IMPRESSION: 1. No evidence of acute intracranial hemorrhage, extraxial fluid or midline shift. 2. No evidence of acute large vessel infarction. 3. Mild cerebral atrophy. Thank you for allowing us to participate in the care of your patient. Dictated and Authenticated by: Keisha Stoner MD 03/30/2018 3:45 AM Central Time ([place] & [place]) EMERGENT AFTER HOURS NONCONTRAST CT HEAD: 03/30/2018 HISTORY: Altered mental status. COMPARISON: 03/06/2018 IMPRESSION: 1. Encephalomalacia in the left basal ganglia and extending into the left periventricular white wesley er, likely related to prior insult and infarction. Ex vacuo dilatation of the left lateral ventricle is again present. 2. Chronic small vessel ischemic changes, predominantly involving the left cerebral hemisphere, stab le from prior exam. 3. Mild cerebral volume loss, similar to prior exam. The findings are in agreement with the preliminary report by Tammie. POS: [facility]
== END 2018-03-30 05:10 | disposition home or self-care (01) ==
LOC: ERS 00:46
DX: N39.0 Urinary tract infection, site not specified (principal); K21.9 Gastro-esophageal reflux disease without esophagitis; I12.0 Hypertensive chronic kidney disease with stage 5 chronic kidney disease or end stage renal disease; N18.6 End stage renal disease
CPT/HCPCS: 36415; 70450; 71045; 80053; 80306; 80307; 81003; 81015; 82140; 83690; 85025; 93005

== ENCOUNTER 2018-06-18 10:25 | Emergency (ER) | payer MEDICARE ==
--- NOTE | 2018-06-18 11:00 | RAD ---
RADIOGRAPH CHEST 1 VIEW: DATE: 06/18/18 TIME: 1046 HOURS HISTORY: 52-year-old male with hypertension. FINDINGS: The thoracic aorta is tortuous and ectatic. There is no evidence of air space density, pneumothorax, or pulmonary edema. The lateral costophrenic angles are sharp. There is no cardiomegaly. There is n o interval change since 03/30/18. IMPRESSION: 1. No acute cardiopulmonary findings. 2. Ectasia of thoracic aorta. esther guerra POS: [facility]
[2018-06-18 11:02] LABS: #Basophils 0.1 thou/uL (0.0-0.2); #Eosinphils 0.1 thou/uL (0.0-0.7); #Lymphocytes 1.1 thou/uL (1.20-3.40); #Monocytes 0.4 thou/uL (0.11-0.59); #Neutrophils 3.7 thou/uL (1.40-6.50); %Basophils 1.2 % (0.0-1.0); %Eosinophils 1.6 % (0.0-10.0); %Lymphocytes 20.5 % (21.0-51.0); %Monocytes 7.6 % (0.0-10.0); Hemoglobin 13.3 g/dL (14.0-18.0); Mean Corpuscular HGB CONC 32.1 g/dL (32.0-36.0); Mean Corpuscular Hemoglobin 27.3 pg (27.0-31.0); Mean Corpuscular Volume 84.9 fL (78.0-98.0); Platelet Count 190 thou/uL (130-400); RBC Distribution Width 15.2 % (11.5-14.5); Red Blood Cell (RBC) Count 4.89 mill/uL (4.70-6.10); White Blood Cell (WBC) Count 5.4 thou/uL (4.8-10.8)
[2018-06-18 11:26] LABS: ALT (SGPT) 28 U/L (8-55); AST (SGOT) 17 U/L (5-34); Albumin 3.9 g/dL (3.5-5.0); Alkaline Phosphatase 155 U/L (40-150); Anion Gap 18 mmol/L (10-20); BUN (Urea Nitrogen) 43 mg/dL (8.9-20.6); Bilirubin, Total 0.4 mg/dL (0.2-1.2); Calc. Creatinine Clearance 0 mL/min (70-130); Calcium 9.3 mg/dL (7.8-10.44); Carbon Dioxide 23 mmol/L (22-29); Chloride 98 mmol/L (98-107); Estimated GFR-MDRD 9; Globulin 4.8 g/dL (2.4-3.5); Glucose 117 mg/dL (70-105); Magnesium 2.5 mg/dL (1.6-2.6); Protein, Total 8.7 g/dL (6.0-8.3); Sodium 135 mmol/L (136-145)
[2018-06-18 11:30] LABS: Troponin I Less than 0.010 ng/mL (< 0.028)
[2018-06-18 12:09] LABS: Phosphorus 4.2 mg/dL (2.3-4.7)
== END 2018-06-18 12:36 | disposition home or self-care (01) ==
LOC: ERS 10:25
DX: I12.0 Hypertensive chronic kidney disease with stage 5 chronic kidney disease or end stage renal disease (principal); N18.6 End stage renal disease
CPT/HCPCS: 36415; 71045; 80053; 83735; 84100; 84484; 85025; 93005

== ENCOUNTER 2018-06-18 16:04 | Inpatient (IN) | payer MEDICARE ==
[2018-06-18] MEDS ORDERED: Senokot S 8.6-50 MG TAB PO PRN (19:27)
[2018-06-18] MEDS ORDERED: Guaifenesin DM 100-10/5 ML UDCUP PO PRN (19:27)
[2018-06-18] MEDS ORDERED: hydrALAZINE 20 MG/ML VIAL SLOW IVP PRN (21:04)
[2018-06-18] MEDS: Baclofen 10 MG TAB PO SCH (21:26)
[2018-06-18] MEDS: Atorvastatin Calcium 10 MG TAB PO SCH (21:26)
[2018-06-18] MEDS: Gabapentin 100 MG CAP PO SCH (21:26)
[2018-06-18] MEDS: Docusate 100 MG CAP PO SCH (21:26)
[2018-06-18] MEDS: Polyethylene Glycol 3350 17 GM Packet PO SCH (21:27)
[2018-06-18] MEDS: Senokot S 8.6-50 MG TAB PO SCH (21:27)
[2018-06-18] MEDS: levETIRAcetam 500 MG TAB PO SCH (21:27)
[2018-06-18 22:07] VITALS: BMI 19.0
--- NOTE | 2018-06-18 22:16 | PDOC.GSCN ---
Surgery Consult: HPI - Consult details Date: 06/18/18 Time: 22:15 Reason for consult: other (End-stage renal failure with nonfunctional right upper arm graft) Requesting physician: Damon Velez History of present illness: 06/18/18 22:15 A short with right upper arm graft which had been working well up until today. He apparently came into the emergency room with severe hypertension, and underwent a brief workup and labs. His blood pressure improved and he was sent to dialysis, but when he arrived there, they found that his right upper arm AV graft had thrombosed. He does not have any other access. He denies shortness of breath and his potassium was normal earlier today. Surgery Consult: ROS - Review of Systems All systems: 10 systems reviewed and no additional complaints unless stated below. (Patient is chronically aphasic due to stroke and has a dense right hemiparesis) Surgery Consult: [facility] Source: family Past Medical History: Hypertension, hemorrhagic CVA with right hemiparesis and aphasia, end-stage renal failure on dialysis, kidney stones Past Surgical History: Failed right AV fistulas, right upper arm AV graft, PEG tube, tunneled dialysis catheter - Past Family History Family history: reviewed and not pertinent - Past Social History Smoking Status: Never smoker Alcohol Use: none Drug Use History: none Surgery Consult: Exam - Vital signs Vital signs: Vital Signs - Most Recent Temp Pulse Resp BP Pulse Ox 97.8 F 79 18 203/118 H 97 06/18/18 19:51 06/18/18 19:51 06/18/18 19:51 06/18/18 19:51 06/18/18 19:51 - Physical Exam General: no distress Eye: normal ocular movement Neck: no lymphadectomy, no masses, trachea midline Respiratory: clear to auscultation, normal respiratory effort Abdomen: non tender, soft, bowel sounds Hernia: none Integumentary: no abnormal pigmentation, no rash Neurologic: other (Right hemiparesis and aphasia) Additional exam: Right upper arm AV graft does not have any palpable or audible flow. Normal capillary refill of the hand and no significant swelling Surgery Consult: Meds - Medications MAR Reviewed: Yes Medications: Current Medications Acetaminophen (Tylenol) 650 mg PO Q4H PRN PRN Reason: Headache/Fever/Mild Pain (1-3) Aspirin (Ecotrin) 81 mg PO DAILY [facility] Atorvastatin Calcium (Lipitor) 10 mg PO HS [facility] Last Admin: 06/18/18 21:26 Dose: 10 mg Baclofen (Lioresal) 10 mg PO TID [facility] Last Admin: 06/18/18 21:26 Dose: 10 mg Docusate Sodium (Colace) 100 mg PO BID [facility] Last Admin: 06/18/18 21:26 Dose: Not Given Enoxaparin Sodium (Lovenox) 30 mg SC 0900 [facility] Famotidine (Pepcid) 20 mg PO DAILY [facility] Fluoxetine HCl (Prozac) 20 mg PO DAILY [facility] Gabapentin (Neurontin) 100 mg PO TID [facility] Last Admin: 06/18/18 21:26 Dose: Not Given Guaifenesin/Dextromethorphan (Robitussin Dm) 15 ml PO Q4H PRN PRN Reason: Cough Hydralazine HCl (Apresoline) 10 mg SLOW IVP Q4H PRN PRN Reason: SBP > 180 Levetiracetam (Keppra) 250 mg PO BID [facility] Last Admin: 06/18/18 21:27 Dose: 250 mg Phenytoin Sodium (Dilantin Er) 400 mg PO HS [facility] Last Admin: 06/18/18 21:27 Dose: 400 mg Polyethylene Glycol (Miralax) 17 gm PO BID [facility] Last Admin: 06/18/18 21:27 Dose: Not Given Saccharomyces Boulardii (Florastor) 250 mg PO DAILY [facility] Senna/Docusate Sodium (Senokot S) 2 tab PO BID PRN PRN Reason: Constipation Senna/Docusate Sodium (Senokot S) 2 tab PO BID [facility] Last Admin: 06/18/18 21:27 Dose: Not Given Sevelamer Carbonate (Renvela) 2,400 mg PO TID-[facility] - Allergies Allergies/Adverse Reactions: Allergies Allergy/AdvReac Type Severity Reaction Status Date / Time No Known Allergies Allergy Verified 03/06/18 09:04 Surgery Consult: A/P - Problem (1) Renal failure Current Visit: Yes Status: Chronic Qualifiers: Renal failure chronicity: chronic Chronic kidney disease stage: on chronic dialysis Qualified Code(s): N18.6 - End stage renal disease; Z99.2 - Dependence on renal dialysis Assessment and Plan: Patient's AV graft is thrombosed. This was reportedly working well on Thursday. Ideally I would ask interventional radiology to do a thrombectomy, but unfortunately neither of the 2 interventional radiologist who do this are in town this weekend. I have asked the radiology techs to schedule the patient for a right upper arm thrombectomy on Thursday. The patient's traveling sales executive, Dr. Patel, does not feel like the patient can wait until Thursday for dialysis, so I will place a femoral dialysis catheter for dialysis this weekend. If the radiologists are unable to get the graft working again, he will need a tunneled hemodialysis catheter. I will make an ampule after midnight for his procedure on Thursday, and if the procedure is not successful I will plan on taking him to the operating room for a tunneled catheter.
--- NOTE | 2018-06-19 03:37 | HP ---
REASON FOR ADMISSION: Thrombosed AV graft, needing access for dialysis. HISTORY OF PRESENTING ILLNESS: The patient initially had come in the morning for elevated blood pressure. His home health nurse checked his blood pressure in the morning at home, which was elevated. He was brought to emergency room. On arrival, he was found to be normal and was asymptomatic and was sent for dialysis today. On arrival at dialysis, the patient's AV graft was thrombosed and could not get one done. He was sent back to the ER. Here in the ER, he has been evaluated by Dr. Johansen. Has no complaints of shortness of breath, cough, or expectoration. The patient's regular dialysis schedule is Thursday, Thursday, and Thursday. He has been on dialysis for last 1 year. He has not been able to have fistula placed due to poor vascular structures. PAST MEDICAL AND SURGICAL HISTORY: History of end-stage renal disease, on hemodialysis for last 1 year; history of CVA with right hemiplegia and wheel-chair bound; seizure disorder; depression; history of PEG tube with removal; prior AV graft in right upper extremity; and prior history of urethral stricture with cystoscopy done. CURRENT MEDICATIONS: 1. Baclofen 10 mg three times daily. 2. Prozac 20 mg p.o. daily. 3. Gabapentin 100 mg p.o. three times daily. 4. Sevelamer 2400 mg p.o. three times daily. 5. Aspirin 81 mg p.o. daily. 6. Lipitor 10 mg p.o. at bedtime. 7. Colace 100 mg p.o. twice daily. 8. Pepcid 20 mg daily. 9. Keppra likely 250 mg twice daily. 10. Phenytoin 400 mg p.o. at bedtime. Please note, we will confirm the dose of Keppra and Phenytoin with his pharmacy. 11. Florastor 250 mg daily. 12. MiraLax 17 g p.o. daily. ALLERGIES: NO KNOWN DRUG ALLERGIES. PERSONAL HISTORY: Does not abuse alcohol or drugs. No history of smoking. FAMILY HISTORY: Both parents are living and have high blood pressure. CODE STATUS: Full. Power of corporate attorney is his daughter, Ms. Bettye Nichols. Number to reach her is [phone]. REVIEW OF SYSTEMS: CONSTITUTIONAL: Negative for weight loss or gain, ability to conduct usual activities. SKIN: Negative for rash, itching. EYES: Negative for double vision, pain. ENT/MOUTH: Negative for nose bleeding, neck stiffness, pain, tenderness. CARDIOVASCULAR: Negative for palpitations, dyspnea on exertion, orthopnea. RESPIRATORY: Negative for shortness of breath, wheezing, cough, hemoptysis, fever or night sweats. GASTROINTESTINAL: Negative for poor appetite, abdominal pain, heartburn, nausea, vomiting, constipation, or diarrhea. GENITOURINARY: Negative for urgency, frequency, dysuria, nocturia. MUSCULOSKELETAL: Negative for pain, swelling. NEUROLOGIC/PSYCHIATRIC: Negative for anxiety, depression. ALLERGY/IMMUNOLOGIC: Negative for skin rash, bleeding tendency. PHYSICAL EXAMINATION: GENERAL: The patient is a 52-year-old male, who is currently not in any acute distress. VITAL SIGNS: Blood pressure 160/90, pulse 70 per minute, respiratory rate 16 per minute, temperature 97.7 degrees Fahrenheit, and saturating 98% on room air. NECK: Supple. No elevated JVD. HEENT: Eyes; extraocular muscles intact. Pupils reacting to light. Oral cavity; mucous membranes are moist. No exudates or congestion. CARDIOVASCULAR: S1 and S2 heard. Regular rhythm. Loud S2. RESPIRATORY: Air entry 1+ bilateral. No rales or rhonchi. ABDOMEN: Soft. Bowel sounds heard. No tenderness, rigidity, or guarding. EXTREMITIES: Has wasting of musculature on the right upper and lower extremities due to CVA. Moves left upper and lower extremities well. There is no peripheral edema. Peripheral pulses are 1+ bilateral. CENTRAL NERVOUS SYSTEM: The patient has chronic right hemiplegia and likely also has cognitive deficiencies. No new focal deficits are seen. PSYCHIATRIC: No obvious hallucinations or delusions. LABORATORY DATA: White count of 5, H and H are 13 and 41, platelet count is 190, MCV is 84 with 6% to 9% neutrophils. Electrolytes are stable. BUN 43 and creatinine 7.8. Serum glucose 117. Liver enzymes; AST and ALT within normal limits. Alk phos is 155. Phosphorous 4.2. Magnesium 2.5. Albumin is 3.9. First set of cardiac enzymes are negative. Chest x-ray done shows no acute cardiopulmonary abnormalities. There is chronic ectasia of thoracic aorta. CLINICAL IMPRESSION AND PLAN: The patient will be under observation on telemetry for thrombosed arteriovenous graft needing access. His scheduled dialysis days are Thursday, Thursday, and Thursday, that is today. Dr. Johansen will talk to Interventional Radiology tomorrow and see if they can open up his thrombosed arteriovenous graft. If not, we will have to wait till Thursday. He will have temporary access placed by Dr. Johansen in the morning. He will be kept n.p.o. for the same. We will continue his aspirin; Baclofen; Lipitor; Colace; Keppra and phenytoin, the dose of both will be confirmed from his pharmacy in the morning; and Sevelamer as before. We will obtain labs in the morning and closely monitor for volume overload. Dr. Roland Patel, his community relations representative, will be consulted as well. Job ID: [id number]
[2018-06-19 05:30] LABS: #Basophils 0.1 thou/uL (0.0-0.2); #Eosinphils 0.2 thou/uL (0.0-0.7); #Lymphocytes 1.6 thou/uL (1.20-3.40); #Monocytes 0.6 thou/uL (0.11-0.59); #Neutrophils 3.2 thou/uL (1.40-6.50); %Eosinophils 2.7 % (0.0-10.0); %Lymphocytes 28.9 % (21.0-51.0); %Monocytes 10.2 % (0.0-10.0); %Neutrophils 57.1 % (42.0-75.0); Hemoglobin 11.8 g/dL (14.0-18.0); Mean Corpuscular HGB CONC 31.5 g/dL (32.0-36.0); Mean Corpuscular Hemoglobin 27.1 pg (27.0-31.0); Mean Corpuscular Volume 85.8 fL (78.0-98.0); Mean Platelet Volume 9.8 fL (7.4-10.4); Platelet Count 187 thou/uL (130-400); RBC Distribution Width 15.2 % (11.5-14.5); Red Blood Cell (RBC) Count 4.37 mill/uL (4.70-6.10); White Blood Cell (WBC) Count 5.5 thou/uL (4.8-10.8)
[2018-06-19 05:52] LABS: Albumin 3.4 g/dL (3.5-5.0); Anion Gap 16 mmol/L (10-20); BUN (Urea Nitrogen) 49 mg/dL (8.9-20.6); BUN/Creatinine Ratio 5.44; Calc. Creatinine Clearance 8 mL/min (70-130); Calcium 8.9 mg/dL (7.8-10.44); Carbon Dioxide 26 mmol/L (22-29); Chloride 99 mmol/L (98-107); Estimated GFR-MDRD 8; Glucose 82 mg/dL (70-105); Phosphorus 5.3 mg/dL (2.3-4.7); Potassium 4.7 mmol/L (3.5-5.1); Sodium 136 mmol/L (136-145)
[2018-06-19] MEDS ORDERED: Heparin 1,000 UNITS/ML VIAL ONE (07:15)
[2018-06-19] MEDS ORDERED: Sodium Chloride 0.9% 10 ML ONE (08:20)
[2018-06-19] MEDS ORDERED: hydrALAZINE 25 MG TAB PO SCH (09:00)
[2018-06-19] MEDS ORDERED: Labetalol 100 MG TAB PO SCH (09:00)
[2018-06-19] MEDS: Acetaminophen 325 MG TAB PO PRN (10:48)
[2018-06-19] MEDS: Baclofen 10 MG TAB PO SCH ×4 (11:39→20:20)
[2018-06-19] MEDS: Docusate 100 MG CAP PO SCH ×2 (11:39→20:22)
[2018-06-19] MEDS: Sevelamer Carbonate 800 MG TAB PO SCH ×3 (11:39→17:18)
[2018-06-19] MEDS: Gabapentin 100 MG CAP PO SCH ×3 (11:40→20:22)
[2018-06-19] MEDS: Polyethylene Glycol 3350 17 GM Packet PO SCH ×2 (11:40→21:17)
[2018-06-19] MEDS: Famotidine 20 MG TAB PO SCH (12:40)
[2018-06-19] MEDS: Aspirin 81 mg Enteric Coated Tablet PO SCH (12:40)
[2018-06-19] MEDS: FLUoxetine HCl 20 MG CAP PO SCH (12:41)
[2018-06-19] MEDS: Saccharomyces boulardii 250 MG CAP PO SCH (12:42)
[2018-06-19] MEDS: levETIRAcetam 500 MG TAB PO SCH ×2 (12:42→20:25)
[2018-06-19] MEDS: Enoxaparin Sodium 30 MG/0.3 ML SYRINGE SC SCH (12:43)
[2018-06-19] MEDS: Senokot S 8.6-50 MG TAB PO SCH ×2 (12:45→20:29)
--- NOTE | 2018-06-19 13:00 | PDOC.PN ---
- Subjective Encounter Start Date: 06/19/18 Encounter Start Time: 09:45 Subjective: no chest pain or sob -: is getting HD now - Objective Resuscitation Status - Order Detail: 06/18/18 19:22 Resuscitation Status Routine Resuscitation Status: FULL: Full Resuscitation Discussed with: POA: daughter Ms.Calasih Nichols [phone] SEP Reviewed: Yes Vital Signs & Weight: Vital Signs (12 hours) Temp Pulse Resp BP BP Pulse Ox 06/19/18 12:33 98.0 F 92 17 141/89 H 97 06/19/18 10:46 120 H 136/96 H 06/19/18 08:28 84 181/110 H 06/19/18 08:19 98.0 F 81 17 170/106 H 98 06/19/18 03:42 97.7 F 83 13 163/99 H 98 Weight Weight 128 lb 9.6 oz I&O: 06/18/18 06/19/18 06/20/18 06:59 06:59 06:59 Intake Total 240 Output Total 0 Balance 240 Result Diagrams: 06/19/18 05:05 06/19/18 05:05 Phys Exam - Physical Examination HEENT: PERRLA, moist MMs Neck: no JVD, supple Respiratory: no wheezing, no rales Cardiovascular: RRR, no significant murmur Gastrointestinal: soft, non-tender, positive bowel sounds Musculoskeletal: no edema, pulses present right hemiplegia with cognitive deficits Dx/Plan (1) AV graft thrombosis Code(s): T82.868A - THROMBOSIS DUE TO VASCULAR PROSTH DEV/GRFT, INIT Status: Acute (2) Complex partial seizure Code(s): G40.209 - LOCAL-REL SYMPTC EPI W CMPLX PRT SEIZ,NOT NTRCT,W/O STAT EPI Status: Chronic Qualifiers: Epilepsy type: partial symptomatic (3) ESRD (end stage renal disease) on dialysis Code(s): N18.6 - END STAGE RENAL DISEASE; Z99.2 - DEPENDENCE ON RENAL DIALYSIS Status: Chronic (4) HTN (hypertension) Code(s): I10 - ESSENTIAL (PRIMARY) HYPERTENSION Status: Chronic Qualifiers: Hypertension type: essential hypertension Qualified Code(s): I10 - Essential (primary) hypertension Comment: uncontrolled (5) h/o hemorrhagic cva Status: Chronic Comment: with right hemiplegia, cognitive dysfunction - Plan got femoral dialysis access and is tolerating HD now -: for IR to reopen his thrombosed graft on thursday -: htn is uncontrolled, will watch his pressures after HD today -: is on additional labetalol, hydralazine and nitropaste for now -: hemostable * . Review of Systems - Medications/Allergies Allergies/Adverse Reactions: Allergies Allergy/AdvReac Type Severity Reaction Status Date / Time No Known Allergies Allergy Verified 06/18/18 22:40 Medications: Current Medications Acetaminophen (Tylenol) 650 mg PO Q4H PRN PRN Reason: Headache/Fever/Mild Pain (1-3) Last Admin: 06/19/18 10:48 Dose: 650 mg Aspirin (Ecotrin) 81 mg PO DAILY [facility] Last Admin: 06/19/18 12:40 Dose: 81 mg Atorvastatin Calcium (Lipitor) 10 mg PO HS [facility] Last Admin: 06/18/18 21:26 Dose: 10 mg Baclofen (Lioresal) 10 mg PO TID [facility] Last Admin: 06/19/18 12:42 Dose: 10 mg Docusate Sodium (Colace) 100 mg PO BID [facility] Last Admin: 06/19/18 11:39 Dose: Not Given Enoxaparin Sodium (Lovenox) 30 mg SC 0900 [facility] Last Admin: 06/19/18 12:43 Dose: 30 mg Famotidine (Pepcid) 20 mg PO DAILY [facility] Last Admin: 06/19/18 12:40 Dose: 20 mg Fluoxetine HCl (Prozac) 20 mg PO DAILY [facility] Last Admin: 06/19/18 12:41 Dose: 20 mg Gabapentin (Neurontin) 100 mg PO TID [facility] Last Admin: 06/19/18 11:40 Dose: Not Given Guaifenesin/Dextromethorphan (Robitussin Dm) 15 ml PO Q4H PRN PRN Reason: Cough Hydralazine HCl (Apresoline) 10 mg SLOW IVP Q4H PRN PRN Reason: SBP > 180 Last Admin: 06/19/18 08:28 Dose: 10 mg Hydralazine HCl (Apresoline) 75 mg PO TID [facility] Last Admin: 06/19/18 12:43 Dose: Not Given Labetalol HCl (Normodyne) 100 mg PO BID [facility] Last Admin: 06/19/18 10:46 Dose: 100 mg Levetiracetam (Keppra) 250 mg PO BID [facility] Last Admin: 06/19/18 12:42 Dose: 250 mg Nitroglycerin (Nitro-Bid 2% Ointment) 0.5 inch TOP Q8HR [facility] Phenytoin Sodium (Dilantin Er) 400 mg PO HS [facility] Last Admin: 06/18/18 21:27 Dose: 400 mg Polyethylene Glycol (Miralax) 17 gm PO BID [facility] Last Admin: 06/19/18 11:40 Dose: Not Given Saccharomyces Boulardii (Florastor) 250 mg PO DAILY [facility] Last Admin: 06/19/18 12:42 Dose: 250 mg Senna/Docusate Sodium (Senokot S) 2 tab PO BID PRN PRN Reason: Constipation Senna/Docusate Sodium (Senokot S) 2 tab PO BID [facility] Last Admin: 06/19/18 12:45 Dose: Not Given Sevelamer Carbonate (Renvela) 2,400 mg PO TID-[facility] Last Admin: 06/19/18 12:44 Dose: 2,400 mg
[2018-06-19] MEDS ORDERED: Nitroglycerin 2% Ointment 1 INCH/1 GM Packet TOP SCH (14:00)
[2018-06-19] MEDS: hydrALAZINE 25 MG TAB PO SCH ×2 (16:09→20:27)
--- NOTE | 2018-06-19 18:43 | PDOC.OP ---
Operative Note - Operative Note Operative Note: PROCEDURE: Femoral hemodialysis catheter placement with ultrasound guidance DATE OF PROCEDURE: 06/19/2018 SURGEON: Ron Johansen M.D. PREOPERATIVE DIAGNOSES: Renal failure POSTOPERATIVE DIAGNOSIS: Renal failure HISTORY: Patient with renal failure who requires access for dialysis while awaiting attempted thrombectomy of his clotted AV graft.. PROCEDURE IN DETAIL: After informed consent was obtained and an ultrasound used to confirm presence of a patent compressible femoral vein, the groin was prepped and draped in standard sterile fashion. Local anesthesia was infused over the femoral vein which was accessed under direct ultrasound guidance with excellent flow of dark venous nonpulsatile blood. Ultrasound was used to confirm the presence of the wire within the patent compressible femoral vein. A skin incision was made and the tract was serially dilated over the wire. The dialysis catheter was placed over the wire and secured to the skin with sutures. All ports easily aspirated and easily flushed without resistance. A sterile dressing was placed. The patient tolerated the procedure well. Estimated blood loss was minimal. There were no complications. There were no specimens.
[2018-06-19] MEDS: Atorvastatin Calcium 10 MG TAB PO SCH (20:20)
[2018-06-19] MEDS: Labetalol 100 MG TAB PO SCH (21:17)
[2018-06-20] MEDS: Aspirin 81 mg Enteric Coated Tablet PO SCH (09:14)
[2018-06-20] MEDS: Labetalol 100 MG TAB PO SCH ×2 (09:14→20:16)
[2018-06-20] MEDS: levETIRAcetam 500 MG TAB PO SCH ×2 (09:14→20:14)
[2018-06-20] MEDS: hydrALAZINE 25 MG TAB PO SCH ×3 (09:15→20:14)
[2018-06-20] MEDS: FLUoxetine HCl 20 MG CAP PO SCH (09:15)
[2018-06-20] MEDS: Famotidine 20 MG TAB PO SCH (09:15)
[2018-06-20] MEDS: Docusate 100 MG CAP PO SCH ×2 (09:15→20:15)
[2018-06-20] MEDS: Enoxaparin Sodium 30 MG/0.3 ML SYRINGE SC SCH (09:16)
[2018-06-20] MEDS: Sevelamer Carbonate 800 MG TAB PO SCH ×3 (09:16→17:17)
[2018-06-20] MEDS: Senokot S 8.6-50 MG TAB PO SCH (09:17)
[2018-06-20] MEDS: Polyethylene Glycol 3350 17 GM Packet PO SCH (09:17)
[2018-06-20] MEDS: Gabapentin 100 MG CAP PO SCH (09:17)
[2018-06-20] MEDS: Saccharomyces boulardii 250 MG CAP PO SCH (09:17)
[2018-06-20] MEDS: Baclofen 10 MG TAB PO SCH ×3 (09:36→20:14)
--- NOTE | 2018-06-20 12:57 | PDOC.PN ---
- Subjective Encounter Start Date: 06/20/18 Encounter Start Time: 11:20 Subjective: not in distress, had his breakfast -: no sob or chest pain - Objective Resuscitation Status - Order Detail: 06/18/18 19:22 Resuscitation Status Routine Resuscitation Status: FULL: Full Resuscitation Discussed with: POA: daughter Ms.Calasih Nichols [phone] SEP Reviewed: Yes Vital Signs & Weight: Vital Signs (12 hours) Temp Pulse Resp BP BP Pulse Ox 06/20/18 11:05 97.5 F L 76 18 102/66 100 06/20/18 09:15 74 174/94 H 06/20/18 09:14 74 174/96 H 06/20/18 08:58 97.8 F 74 16 174/96 H 99 06/20/18 03:52 97.6 F 85 18 111/71 96 Weight Weight 130 lb I&O: 06/19/18 06/20/18 06/21/18 06:59 06:59 06:59 Intake Total 240 1180 Output Total 0 Balance 240 1180 Result Diagrams: 06/19/18 05:05 06/19/18 05:05 Phys Exam - Physical Examination HEENT: PERRLA, moist MMs Neck: no JVD, supple Respiratory: no wheezing, no rales Cardiovascular: RRR, no significant murmur Gastrointestinal: soft, non-tender, positive bowel sounds Musculoskeletal: no edema, pulses present Neurological: non-focal, moves all 4 limbs Psychiatric: normal affect, A&O x 3 Dx/Plan (1) AV graft thrombosis Code(s): T82.868A - THROMBOSIS DUE TO VASCULAR PROSTH DEV/GRFT, INIT Status: Acute (2) Complex partial seizure Code(s): G40.209 - LOCAL-REL SYMPTC EPI W CMPLX PRT SEIZ,NOT NTRCT,W/O STAT EPI Status: Chronic Qualifiers: Epilepsy type: partial symptomatic (3) ESRD (end stage renal disease) on dialysis Code(s): N18.6 - END STAGE RENAL DISEASE; Z99.2 - DEPENDENCE ON RENAL DIALYSIS Status: Chronic (4) HTN (hypertension) Code(s): I10 - ESSENTIAL (PRIMARY) HYPERTENSION Status: Chronic Qualifiers: Hypertension type: essential hypertension Qualified Code(s): I10 - Essential (primary) hypertension (5) 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 Review of Systems - Medications/Allergies Allergies/Adverse Reactions: Allergies Allergy/AdvReac Type Severity Reaction Status Date / Time No Known Allergies Allergy Verified 06/18/18 22:40 Medications: Current Medications Acetaminophen (Tylenol) 650 mg PO Q4H PRN PRN Reason: Headache/Fever/Mild Pain (1-3) Last Admin: 06/19/18 10:48 Dose: 650 mg Aspirin (Ecotrin) 81 mg PO DAILY [facility] Last Admin: 06/20/18 09:14 Dose: 81 mg Atorvastatin Calcium (Lipitor) 10 mg PO HS [facility] Last Admin: 06/19/18 20:20 Dose: 10 mg Baclofen (Lioresal) 10 mg PO TID [facility] Last Admin: 06/20/18 09:36 Dose: 10 mg Docusate Sodium (Colace) 100 mg PO BID [facility] Last Admin: 06/20/18 09:15 Dose: Not Given Enoxaparin Sodium (Lovenox) 30 mg SC 0900 [facility] Last Admin: 06/20/18 09:16 Dose: 30 mg Famotidine (Pepcid) 20 mg PO DAILY [facility] Last Admin: 06/20/18 09:15 Dose: 20 mg Fluoxetine HCl (Prozac) 20 mg PO DAILY [facility] Last Admin: 06/20/18 09:15 Dose: 20 mg Guaifenesin/Dextromethorphan (Robitussin Dm) 15 ml PO Q4H PRN PRN Reason: Cough Hydralazine HCl (Apresoline) 10 mg SLOW IVP Q4H PRN PRN Reason: SBP > 180 Last Admin: 06/19/18 08:28 Dose: 10 mg Hydralazine HCl (Apresoline) 75 mg PO TID [facility] Last Admin: 06/20/18 09:15 Dose: 75 mg Labetalol HCl (Normodyne) 100 mg PO BID [facility] Last Admin: 06/20/18 09:14 Dose: 100 mg Levetiracetam (Keppra) 250 mg PO BID [facility] Last Admin: 06/20/18 09:14 Dose: 250 mg Phenytoin Sodium (Dilantin Er) 400 mg PO HS [facility] Last Admin: 06/19/18 20:23 Dose: 400 mg Saccharomyces Boulardii (Florastor) 250 mg PO DAILY [facility] Last Admin: 06/20/18 09:17 Dose: 250 mg Sevelamer Carbonate (Renvela) 2,400 mg PO TID-WM [facility] Last Admin: 06/20/18 12:09 Dose: 2,400 mg Sodium Chloride (Flush - Normal Saline) 10 ml IVF Q12HR [facility] Last Admin: 06/20/18 09:17 Dose: 10 ml Sodium Chloride (Flush - Normal Saline) 10 ml IVF PRN PRN PRN Reason: Saline Flush Last Admin: 06/19/18 21:16 Dose: 10 ml
[2018-06-20] MEDS: Atorvastatin Calcium 10 MG TAB PO SCH (20:15)
[2018-06-21] MEDS: Labetalol 100 MG TAB PO SCH ×2 (05:33→20:46)
[2018-06-21] MEDS: Docusate 100 MG CAP PO SCH ×2 (08:26→20:44)
[2018-06-21] MEDS: Famotidine 20 MG TAB PO SCH (08:26)
[2018-06-21] MEDS: Enoxaparin Sodium 30 MG/0.3 ML SYRINGE SC SCH (08:26)
[2018-06-21] MEDS: Baclofen 10 MG TAB PO SCH ×3 (08:26→20:44)
[2018-06-21] MEDS: Sevelamer Carbonate 800 MG TAB PO SCH ×3 (08:26→19:14)
[2018-06-21] MEDS: Aspirin 81 mg Enteric Coated Tablet PO SCH (08:26)
[2018-06-21] MEDS: Saccharomyces boulardii 250 MG CAP PO SCH (08:27)
[2018-06-21] MEDS: hydrALAZINE 25 MG TAB PO SCH ×4 (08:27→20:46)
[2018-06-21] MEDS: levETIRAcetam 500 MG TAB PO SCH ×2 (08:27→20:44)
[2018-06-21] MEDS: FLUoxetine HCl 20 MG CAP PO SCH (08:27)
[2018-06-21] MEDS ORDERED: Activase 2 MG VIAL CATH SCH (09:45)
[2018-06-21] MEDS ORDERED: Sterile Water 10 ML VIAL IVP SCH (09:45)
--- NOTE | 2018-06-21 11:37 | PDOC.PN ---
- Subjective Encounter Start Date: 06/21/18 Encounter Start Time: 08:15 Subjective: awake, watching tv -: no sob - Objective Resuscitation Status - Order Detail: 06/18/18 19:22 Resuscitation Status Routine Resuscitation Status: FULL: Full Resuscitation Discussed with: POA: daughter Ms.Calasih Nichols [phone] SEP Reviewed: Yes Vital Signs & Weight: Vital Signs (12 hours) Temp Pulse Resp BP BP Pulse Ox 06/21/18 10:31 68 06/21/18 08:00 97.6 F 68 18 145/76 H 94 L 06/21/18 05:33 82 06/21/18 04:00 97.6 F 82 16 123/75 97 06/21/18 00:43 97.7 F 77 16 113/66 97 Weight Weight 130 lb I&O: 06/20/18 06/21/18 06/22/18 06:59 06:59 06:59 Intake Total 1180 430 Balance 1180 430 Result Diagrams: 06/19/18 05:05 06/19/18 05:05 Phys Exam - Physical Examination HEENT: PERRLA, moist MMs Neck: no JVD, supple Respiratory: no wheezing, no rales Cardiovascular: RRR, no significant murmur Gastrointestinal: soft, non-tender, positive bowel sounds Musculoskeletal: no edema, pulses present right hemiplegia Dx/Plan (1) AV graft thrombosis Code(s): T82.868A - THROMBOSIS DUE TO VASCULAR PROSTH DEV/GRFT, INIT Status: Acute (2) Complex partial seizure Code(s): G40.209 - LOCAL-REL SYMPTC EPI W CMPLX PRT SEIZ,NOT NTRCT,W/O STAT EPI Status: Chronic Qualifiers: Epilepsy type: partial symptomatic (3) ESRD (end stage renal disease) on dialysis Code(s): N18.6 - END STAGE RENAL DISEASE; Z99.2 - DEPENDENCE ON RENAL DIALYSIS Status: Chronic (4) HTN (hypertension) Code(s): I10 - ESSENTIAL (PRIMARY) HYPERTENSION Status: Chronic Qualifiers: Hypertension type: essential hypertension Qualified Code(s): I10 - Essential (primary) hypertension (5) 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 Review of Systems - Medications/Allergies Allergies/Adverse Reactions: Allergies Allergy/AdvReac Type Severity Reaction Status Date / Time No Known Allergies Allergy Verified 06/18/18 22:40 Medications: Current Medications Acetaminophen (Tylenol) 650 mg PO Q4H PRN PRN Reason: Headache/Fever/Mild Pain (1-3) Last Admin: 06/19/18 10:48 Dose: 650 mg Alteplase, Recombinant (Cathflo) 4 mg CATH NOW [facility] Stop: 06/21/18 12:00 Aspirin (Ecotrin) 81 mg PO DAILY [facility] Last Admin: 06/21/18 08:26 Dose: Not Given Atorvastatin Calcium (Lipitor) 10 mg PO HS [facility] Last Admin: 06/20/18 20:15 Dose: 10 mg Baclofen (Lioresal) 10 mg PO TID [facility] Last Admin: 06/21/18 08:26 Dose: Not Given Docusate Sodium (Colace) 100 mg PO BID [facility] Last Admin: 06/21/18 08:26 Dose: Not Given Enoxaparin Sodium (Lovenox) 30 mg SC 0900 [facility] Last Admin: 06/21/18 08:26 Dose: Not Given Famotidine (Pepcid) 20 mg PO DAILY [facility] Last Admin: 06/21/18 08:26 Dose: Not Given Fluoxetine HCl (Prozac) 20 mg PO DAILY [facility] Last Admin: 06/21/18 08:27 Dose: Not Given Guaifenesin/Dextromethorphan (Robitussin Dm) 15 ml PO Q4H PRN PRN Reason: Cough Hydralazine HCl (Apresoline) 10 mg SLOW IVP Q4H PRN PRN Reason: SBP > 180 Last Admin: 06/19/18 08:28 Dose: 10 mg Hydralazine HCl (Apresoline) 75 mg PO TID [facility] Last Admin: 06/21/18 10:31 Dose: 75 mg Labetalol HCl (Normodyne) 100 mg PO BID [facility] Last Admin: 06/21/18 05:33 Dose: 100 mg Levetiracetam (Keppra) 250 mg PO BID [facility] Last Admin: 06/21/18 08:27 Dose: Not Given Phenytoin Sodium (Dilantin Er) 400 mg PO HS [facility] Last Admin: 06/20/18 20:16 Dose: 400 mg Saccharomyces Boulardii (Florastor) 250 mg PO DAILY [facility] Last Admin: 06/21/18 08:27 Dose: Not Given Sevelamer Carbonate (Renvela) 2,400 mg PO TID-WM [facility] Last Admin: 06/21/18 08:26 Dose: Not Given Sodium Chloride (Flush - Normal Saline) 10 ml IVF Q12HR [facility] Last Admin: 06/21/18 08:28 Dose: 10 ml Sodium Chloride (Flush - Normal Saline) 10 ml IVF PRN PRN PRN Reason: Saline Flush Last Admin: 06/19/18 21:16 Dose: 10 ml Sodium Chloride (Flush - Normal Saline) 10 ml IVF PRN PRN PRN Reason: Saline Flush Sterile Water (Water For Injection) 20 ml IVP NOW [facility] Stop: 06/21/18 12:00
--- NOTE | 2018-06-21 15:40 | SPC ---
RIGHT UPPER EXTREMITY ARTERIOVENOUS DIALYSIS FISTULOGRAM AND VENOGRAM TO THE SVC THROMBOLYSIS AND THROMBECTOMY RIGHT UPPER EXTREMITY ARTERIOVENOUS DIALYSIS FISTULA: DATE: 06/21/2018. HISTORY: Clotted right upper extremity arteriovenous dialysis fistula. TECHNIQUE: The procedure including the risks and complications were explained to the patient and informed consen t was obtained. The patient was placed on the angiography table in supine position. The right upper extremity was meticulously prepped and draped in the usual sterile fashion. The skin and subcutaneo us soft tissues were infiltrated with buffered 1% Lidocaine for local anesthesia at the intended punc ture site. Short 6 Kenyan vascular sheaths were placed, directed in the arterial as well as venous d irections. A 5 Kenyan Berenstein catheter was placed over a 0.035 inch Bentsen guidewire and the catheter was ma nipulated to the level of the axillary vein. Venogram demonstrates patency of the axillary vein to t he level of the SVC. There is a suggestion of mild narrowing in the region of the axillary vein with fistula clotted just proximal to this region. A 5 Kenyan Berenstein catheter was manipulated to the level of the arteriovenous anastomosis. The ca theter was placed within the artery and contrast injection confirms patency of the artery. 4 mg of recombinant TPA was laced throughout the clotted portion of the fistula. The patient was als o administered 1500 units of Heparin intravenously. A 6 mm x 4 cm angioplasty balloon was then placed over the guidewire directed in the venous direction and angioplasty was performed along with the clotted portion of the fistula. No waist was identifie d within the angioplasty balloon to suggest focal area of narrowing. A 5 Kenyan Justina catheter with distal balloon was then placed over the guidewire and directed in th e arterial direction. Balloon catheter was placed proximal to the arteriovenous anastomosis, and the balloon was inflated and withdrawn throughout the fistula. There was reestablishment of flow, altho ugh flow within the fistula was sluggish. However, no filling defects were seen along the course of the fistula. A 5 Kenyan Berenstein catheter was then placed to the level of the arteriovenous anastomosis and cont rast injection was performed. This demonstrated focal stenosis at the level of the arteriovenous analilia stomosis. Again, flow was seen throughout the fistula, although flow was sluggish. The 6 Kenyan vascular sheaths were removed, and hemostasis was achieved with direct pressure. There was a thrill noted within the fistula post procedure after obtaining hemostasis. Dry sterile dressin gs were placed at puncture sites. Findings were discussed with Dr. Johansen. Dr. Johansen requested the patient be transported to dialys is for dialysis through the arteriovenous fistula. The patient tolerated the procedure well and without immediate complication. IMPRESSION: 1. Technically successful thrombolysis and thrombectomy of clotted right upper extremity arterioveno us dialysis fistula. 2. Focal narrowing with poor inflow at the level of the arteriovenous anastomosis resulting in slugg sheri flow throughout the fistula. No focal stenosis was seen throughout the remainder of the venous ou tflow. 3. Above findings discussed with Dr. Johansen at the time of this exam. CODE CR POS: [facility]
--- NOTE | 2018-06-21 18:14 | PDOC.GSPN ---
Surgery Progress Note: Subj - Subjective Narrative: AV graft successfully declotted but per radiologist, inflow poor. May have anastomotic stricture. Unable to stent due to location. Will get US arterial studies to make sure no arterial disease contributing. If the artery looks normal, will plan revision of arterial anastomosis tomorrow in OR. Surgery Progress Note: Obj - Vital signs Vital signs: Vital Signs - Most Recent Temp Pulse Resp BP Pulse Ox 97.6 F 68 18 145/76 H 94 L 06/21/18 08:00 06/21/18 10:31 06/21/18 08:00 06/21/18 08:00 06/21/18 08:00 Surgery Progress Note: Results - Labs Result Diagrams: 06/19/18 05:05 06/19/18 05:05 Surgery Progress Note: A/P - Problem (1) Renal failure Current Visit: Yes Status: Chronic Qualifiers: Renal failure chronicity: chronic Chronic kidney disease stage: on chronic dialysis Qualified Code(s): N18.6 - End stage renal disease; Z99.2 - Dependence on renal dialysis
[2018-06-21] MEDS: Atorvastatin Calcium 10 MG TAB PO SCH (20:44)
[2018-06-22] MEDS: Labetalol 100 MG TAB PO SCH ×2 (06:34→22:47)
[2018-06-22] MEDS: Sevelamer Carbonate 800 MG TAB PO SCH ×4 (11:45→18:04)
[2018-06-22] MEDS: hydrALAZINE 25 MG TAB PO SCH ×3 (11:46→22:45)
[2018-06-22] MEDS: Saccharomyces boulardii 250 MG CAP PO SCH (11:46)
[2018-06-22] MEDS: FLUoxetine HCl 20 MG CAP PO SCH (11:46)
[2018-06-22] MEDS: Aspirin 81 mg Enteric Coated Tablet PO SCH (11:46)
[2018-06-22] MEDS: Baclofen 10 MG TAB PO SCH ×3 (11:46→22:46)
[2018-06-22] MEDS: Docusate 100 MG CAP PO SCH ×2 (11:48→22:46)
[2018-06-22] MEDS: levETIRAcetam 500 MG TAB PO SCH ×2 (11:48→22:45)
[2018-06-22] MEDS: Enoxaparin Sodium 30 MG/0.3 ML SYRINGE SC SCH (11:49)
[2018-06-22] MEDS: Famotidine 20 MG TAB PO SCH (11:50)
--- NOTE | 2018-06-22 13:07 | ULT ---
RIGHT UPPER EXTREMITY DOPPLER EVALUATION OF ARTERIOVENOUS DIALYSIS GRAFT/FISTULA: 06/22/2018 HISTORY: Poor inflow of arteriovenous graft. COMPARISON: Arteriovenous dialysis fistulogram on 06/21/2018. FINDINGS: There is a right upper extremity arteriovenous dialysis graft with what appears to be an arteriovenou s anastomotic with the brachial artery. There is arterial waveform demonstrated within the brachial artery, proximal and distal to the level of the anastomosis of the graft with the brachial artery; ho wever, there is echogenic material compatible with thrombus seen throughout the graft of the arteriov enous dialysis fistula. The anastomosis of the artery with the dialysis graft is difficult to evalua te on this examination but, on the prior exam, there did appear to be a small caliber of the arterial inflow with poor flow throughout the graft after thrombolysis and thrombectomy. IMPRESSION: 1. Arterial waveform demonstrates within the right brachial artery. 2. Thrombosis of the right upper extremity arteriovenous dialysis graft, beginning at the origin of the graft. The arterial inflow is difficult to evaluate on this examination, but on prior right uppe r extremity arteriovenous dialysis fistulogram, there was suggestion of poor inflow with narrowing at the level of the arterial inflow of the graft. In addition, there was sluggish flow seen throughout the graft on the prior examination. POS: [facility]
--- NOTE | 2018-06-22 15:45 | PDOC.PN ---
- Subjective Encounter Start Date: 06/22/18 Encounter Start Time: 10:30 Subjective: is npo for dialysis access procedure -: not in distress - Objective Resuscitation Status - Order Detail: 06/18/18 19:22 Resuscitation Status Routine Resuscitation Status: FULL: Full Resuscitation Discussed with: POA: daughter Ms.Calasih Nichols [phone] SEP Reviewed: Yes Vital Signs & Weight: Vital Signs (12 hours) Temp Pulse Resp BP BP Pulse Ox 06/22/18 15:33 75 113/68 06/22/18 11:46 75 162/98 H 06/22/18 08:00 97 06/22/18 07:15 98.3 F 75 18 129/82 97 06/22/18 06:34 86 06/22/18 05:33 97.7 F 95 18 127/85 97 Weight Weight 130 lb I&O: 06/21/18 06/22/18 06/23/18 06:59 06:59 06:59 Intake Total 430 410 440 Balance 430 410 440 Result Diagrams: 06/19/18 05:05 06/19/18 05:05 Additional Labs: Accuchecks 06/21/18 14:58 POC Glucose 111 H Phys Exam - Physical Examination HEENT: PERRLA, moist MMs Neck: no JVD, supple Respiratory: no wheezing, no rales Cardiovascular: RRR, no significant murmur Gastrointestinal: soft, no distention, positive bowel sounds Musculoskeletal: no edema, pulses present right hemiplegia, cognitive dysfunction Dx/Plan (1) AV graft thrombosis Code(s): T82.868A - THROMBOSIS DUE TO VASCULAR PROSTH DEV/GRFT, INIT Status: Acute Qualifiers: Encounter type: subsequent encounter Qualified Code(s): T82.868D - Thrombosis due to vascular prosthetic devices, implants and grafts, subsequent encounter (2) Complex partial seizure Code(s): G40.209 - LOCAL-REL SYMPTC EPI W CMPLX PRT SEIZ,NOT NTRCT,W/O STAT EPI Status: Chronic Qualifiers: Epilepsy type: partial symptomatic (3) ESRD (end stage renal disease) on dialysis Code(s): N18.6 - END STAGE RENAL DISEASE; Z99.2 - DEPENDENCE ON RENAL DIALYSIS Status: Chronic (4) HTN (hypertension) Code(s): I10 - ESSENTIAL (PRIMARY) HYPERTENSION Status: Chronic Qualifiers: Hypertension type: essential hypertension Qualified Code(s): I10 - Essential (primary) hypertension (5) 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 Review of Systems - Medications/Allergies Allergies/Adverse Reactions: Allergies Allergy/AdvReac Type Severity Reaction Status Date / Time No Known Allergies Allergy Verified 06/18/18 22:40 Medications: Current Medications Acetaminophen (Tylenol) 650 mg PO Q4H PRN PRN Reason: Headache/Fever/Mild Pain (1-3) Last Admin: 06/19/18 10:48 Dose: 650 mg Aspirin (Ecotrin) 81 mg PO DAILY [facility] Last Admin: 06/22/18 11:46 Dose: 81 mg Atorvastatin Calcium (Lipitor) 10 mg PO HS [facility] Last Admin: 06/21/18 20:44 Dose: 10 mg Baclofen (Lioresal) 10 mg PO TID [facility] Last Admin: 06/22/18 15:33 Dose: 10 mg Docusate Sodium (Colace) 100 mg PO BID [facility] Last Admin: 06/22/18 11:48 Dose: 100 mg Enoxaparin Sodium (Lovenox) 30 mg SC 0900 [facility] Last Admin: 06/22/18 11:49 Dose: 30 mg Famotidine (Pepcid) 20 mg PO DAILY [facility] Last Admin: 06/22/18 11:50 Dose: 20 mg Fluoxetine HCl (Prozac) 20 mg PO DAILY [facility] Last Admin: 06/22/18 11:46 Dose: 20 mg Guaifenesin/Dextromethorphan (Robitussin Dm) 15 ml PO Q4H PRN PRN Reason: Cough Hydralazine HCl (Apresoline) 10 mg SLOW IVP Q4H PRN PRN Reason: SBP > 180 Last Admin: 06/19/18 08:28 Dose: 10 mg Hydralazine HCl (Apresoline) 75 mg PO TID [facility] Last Admin: 06/22/18 15:33 Dose: 75 mg Labetalol HCl (Normodyne) 100 mg PO BID [facility] Last Admin: 06/22/18 06:34 Dose: 100 mg Levetiracetam (Keppra) 250 mg PO BID [facility] Last Admin: 06/22/18 11:48 Dose: 250 mg Phenytoin Sodium (Dilantin Er) 400 mg PO HS [facility] Last Admin: 06/21/18 20:45 Dose: 400 mg Saccharomyces Boulardii (Florastor) 250 mg PO DAILY [facility] Last Admin: 06/22/18 11:46 Dose: 250 mg Sevelamer Carbonate (Renvela) 2,400 mg PO TID-WM [facility] Last Admin: 06/22/18 15:32 Dose: 2,400 mg Sodium Chloride (Flush - Normal Saline) 10 ml IVF Q12HR [facility] Last Admin: 06/22/18 11:50 Dose: 10 ml Sodium Chloride (Flush - Normal Saline) 10 ml IVF PRN PRN PRN Reason: Saline Flush Last Admin: 06/19/18 21:16 Dose: 10 ml Sodium Chloride (Flush - Normal Saline) 10 ml IVF PRN PRN PRN Reason: Saline Flush
[2018-06-22] MEDS: Atorvastatin Calcium 10 MG TAB PO SCH (22:46)
[2018-06-23] MEDS: Acetaminophen 325 MG TAB PO PRN (01:54)
--- NOTE | 2018-06-23 02:04 | CON ---
DATE OF CONSULTATION: HISTORY OF PRESENT ILLNESS: This is a pleasant 52-year-old gentleman, who is on hemodialysis for the past year after suffering a left hemispheric hypertensive intracranial hemorrhage about 1 year ago. He had chronic kidney disease prior to that but related to his illness, he ultimately was placed on dialysis. He had an AV access graft in his right upper extremity and presented to dialysis this weekend with nonfunctioning graft and was admitted. He underwent opening of the graft, however, the inflow was felt to be poor and I have been asked to do angiography to assess this. PAST MEDICAL HISTORY: Includes long-standing hypertension. He had a previously noted stroke. MEDICATIONS: Include: 1. Baclofen. 2. Prozac. 3. Gabapentin. 4. Sevelamer. 5. Aspirin. 6. Lipitor. 7. Keppra. 8. Dilantin. 9. Florastor. 10. MiraLax. ALLERGIES: NONE KNOWN. PHYSICAL EXAMINATION: GENERAL: On examination, he is alert, cooperative gentleman, who has one-word answers to questions. NECK: He has right-sided bruit, radiated murmur. CARDIAC: Does reveal a systolic murmur with regular rate and rhythm. LUNGS: Clear to auscultation. ABDOMEN: Scaphoid. EXTREMITIES: He has palpable femoral and popliteal pulses. His right side is hemiplegic. He has an excellent radial pulse on the right, good brachial pulse, and I do not feel any pulsations in his Dawson-Rajeev graft or hear a bruit at this time. PLAN: Plan at this time is for angiography via the left femoral artery. He has a dialysis catheter in the right femoral vein. I have discussed the situation with the patient and brother, and I have called the daughter who has the power of insurance defense attorney. However, currently, she is not answering her phone and I have left a message for her to contact the hospital at her convenience. Job ID: [id number]
[2018-06-23] MEDS ORDERED: hydrALAZINE 20 MG/ML VIAL ONE (09:30)
[2018-06-23 10:53] LABS: Anion Gap 17 mmol/L (10-20); BUN (Urea Nitrogen) 45 mg/dL (8.9-20.6); Calc. Creatinine Clearance 0 mL/min (70-130); Calcium 9.7 mg/dL (7.8-10.44); Carbon Dioxide 24 mmol/L (22-29); Chloride 100 mmol/L (98-107); Estimated GFR-MDRD 7; Glucose 118 mg/dL (70-105); Potassium 5.1 mmol/L (3.5-5.1); Sodium 136 mmol/L (136-145)
[2018-06-23] MEDS ORDERED: Iopamidol 370 76% 50 ML VIAL FS ONE (10:55)
[2018-06-23] MEDS: Docusate 100 MG CAP PO SCH ×2 (11:05→20:20)
[2018-06-23] MEDS: Baclofen 10 MG TAB PO SCH ×3 (11:05→20:20)
[2018-06-23] MEDS: Labetalol 100 MG TAB PO SCH ×2 (11:05→20:25)
[2018-06-23] MEDS: Famotidine 20 MG TAB PO SCH (11:06)
[2018-06-23] MEDS: Saccharomyces boulardii 250 MG CAP PO SCH (11:06)
[2018-06-23] MEDS: hydrALAZINE 25 MG TAB PO SCH ×3 (11:06→20:24)
[2018-06-23] MEDS: FLUoxetine HCl 20 MG CAP PO SCH (11:07)
[2018-06-23] MEDS: levETIRAcetam 500 MG TAB PO SCH ×2 (11:07→20:21)
[2018-06-23] MEDS: Sevelamer Carbonate 800 MG TAB PO SCH ×3 (11:08→17:13)
[2018-06-23] MEDS: Aspirin 81 mg Enteric Coated Tablet PO SCH (11:08)
[2018-06-23] MEDS: Enoxaparin Sodium 30 MG/0.3 ML SYRINGE SC SCH (11:08)
--- NOTE | 2018-06-23 16:09 | PDOC.PN ---
- Subjective Encounter Start Date: 06/23/18 Encounter Start Time: 16:04 Subjective: feels OK. not able to verbalize d/t H/O CVA -: RN reported Bleeding from Femoral Cathter site - Objective Resuscitation Status - Order Detail: 06/18/18 19:22 Resuscitation Status Routine Resuscitation Status: FULL: Full Resuscitation Discussed with: POA: daughter Ms.Calasih Nichols [phone] MAR Reviewed: Yes Vital Signs & Weight: Vital Signs (12 hours) Temp Pulse Resp BP Pulse Ox 06/23/18 11:06 86 06/23/18 11:05 86 06/23/18 08:13 97.9 F 86 16 163/84 H 97 06/23/18 08:00 97 Weight Weight 2.061 oz I&O: 06/22/18 06/23/18 06/24/18 06:59 06:59 06:59 Intake Total 410 1280 Balance 410 1280 Result Diagrams: 06/19/18 05:05 06/23/18 10:09 Radiology Reviewed by me: Yes (Arterial US-AV fistula thrombosis) Phys Exam - Physical Examination Constitutional: NAD HEENT: PERRLA, moist MMs, sclera anicteric, oral pharynx no lesions Neck: no nodes, no JVD, supple, full ROM Respiratory: no wheezing, no rales, no rhonchi, clear to auscultation bilateral Cardiovascular: RRR, no significant murmur, no rub Gastrointestinal: soft, non-tender, no distention, positive bowel sounds Musculoskeletal: no edema, pulses present Neurological: non-focal, normal sensation, moves all 4 limbs Psychiatric: normal affect, A&O x 3 Skin: no rash Dx/Plan (1) AV graft thrombosis Code(s): T82.868A - THROMBOSIS DUE TO VASCULAR PROSTH DEV/GRFT, INIT Status: Acute Qualifiers: Encounter type: subsequent encounter Qualified Code(s): T82.868D - Thrombosis due to vascular prosthetic devices, implants and grafts, subsequent encounter (2) Complex partial seizure Code(s): G40.209 - LOCAL-REL SYMPTC EPI W CMPLX PRT SEIZ,NOT NTRCT,W/O STAT EPI Status: Chronic Qualifiers: Epilepsy type: partial symptomatic Comment: on Keppra and phenytoin (3) ESRD (end stage renal disease) on dialysis Code(s): N18.6 - END STAGE RENAL DISEASE; Z99.2 - DEPENDENCE ON RENAL DIALYSIS Status: Chronic Comment: HD as tolerated (4) HTN (hypertension) Code(s): I10 - ESSENTIAL (PRIMARY) HYPERTENSION Status: Chronic Qualifiers: Hypertension type: essential hypertension Qualified Code(s): I10 - Essential (primary) hypertension (5) Other issues per previous notes Status: Chronic (6) 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 Review of Systems - Review of Systems Other: limted ROS due to aphasia from prior CVA - Medications/Allergies Allergies/Adverse Reactions: Allergies Allergy/AdvReac Type Severity Reaction Status Date / Time No Known Allergies Allergy Verified 06/18/18 22:40 Medications: Current Medications Acetaminophen (Tylenol) 650 mg PO Q4H PRN PRN Reason: Headache/Fever/Mild Pain (1-3) Last Admin: 06/23/18 01:54 Dose: 650 mg Aspirin (Ecotrin) 81 mg PO DAILY [facility] Last Admin: 06/23/18 11:08 Dose: Not Given Atorvastatin Calcium (Lipitor) 10 mg PO HS [facility] Last Admin: 06/22/18 22:46 Dose: 10 mg Baclofen (Lioresal) 10 mg PO TID [facility] Last Admin: 06/23/18 11:05 Dose: 10 mg Docusate Sodium (Colace) 100 mg PO BID [facility] Last Admin: 06/23/18 11:05 Dose: 100 mg Enoxaparin Sodium (Lovenox) 30 mg SC 0900 [facility] Last Admin: 06/23/18 11:08 Dose: Not Given Famotidine (Pepcid) 20 mg PO DAILY [facility] Last Admin: 06/23/18 11:06 Dose: 20 mg Fluoxetine HCl (Prozac) 20 mg PO DAILY [facility] Last Admin: 06/23/18 11:07 Dose: 20 mg Guaifenesin/Dextromethorphan (Robitussin Dm) 15 ml PO Q4H PRN PRN Reason: Cough Hydralazine HCl (Apresoline) 10 mg SLOW IVP Q4H PRN PRN Reason: SBP > 180 Last Admin: 06/19/18 08:28 Dose: 10 mg Hydralazine HCl (Apresoline) 75 mg PO TID [facility] Last Admin: 06/23/18 11:06 Dose: Not Given Labetalol HCl (Normodyne) 100 mg PO BID [facility] Last Admin: 06/23/18 11:05 Dose: Not Given Levetiracetam (Keppra) 250 mg PO BID [facility] Last Admin: 06/23/18 11:07 Dose: 250 mg Phenytoin Sodium (Dilantin Er) 400 mg PO HS [facility] Last Admin: 06/22/18 22:45 Dose: 400 mg Saccharomyces Boulardii (Florastor) 250 mg PO DAILY [facility] Last Admin: 06/23/18 11:06 Dose: 250 mg Sevelamer Carbonate (Renvela) 2,400 mg PO TID-WM [facility] Last Admin: 06/23/18 12:59 Dose: Not Given Sodium Chloride (Flush - Normal Saline) 10 ml IVF Q12HR [facility] Last Admin: 06/23/18 11:13 Dose: 10 ml Sodium Chloride (Flush - Normal Saline) 10 ml IVF PRN PRN PRN Reason: Saline Flush Last Admin: 06/19/18 21:16 Dose: 10 ml Sodium Chloride (Flush - Normal Saline) 10 ml IVF PRN PRN PRN Reason: Saline Flush
[2018-06-23 17:14] LABS: A/G Ratio 0.8 (0.7-1.7); Albumin 3.4 g/dL (2.9-4.4); Alpha 1 0.2 g/dL (0.0-0.4); Alpha 2 0.7 g/dL (0.4-1.0); Gamma 2.4 g/dL (0.4-1.8); Globulin, Total 4.3 g/dL (2.2-3.9); M-Spike 0.8 g/dL (Not Observed)
--- NOTE | 2018-06-23 17:56 | OP ---
DATE OF PROCEDURE: 06/23/2018 PREOPERATIVE DIAGNOSIS: Possible stenosis, right arm arteriovenous access. PROCEDURE PERFORMED: Right arm angiogram. CONTRAST: 30 mL. FLUORO: 7.4 minutes. DESCRIPTION OF PROCEDURE: After prepping and draping, ultrasound-guided puncture of the left common femoral artery was performed. A 5-Greenlandic dilator and sheaths were placed, following which a angled Julien was advanced into the origin of the innominate artery. Initially, a Bentson wire could not negotiate the angulations and a long, soft angled-glidewire was used to negotiate into the brachial artery. Following this, the Williamson catheter was exchanged for glide catheter to allow the catheter to track the wire. The catheter was then advanced into the brachial artery, and run-off of the arm was obtained. FINDINGS: The patient had normal innominate right subclavian origin of the right common carotid, right axillary, right brachial, and trifurcation of the vessels to the mid forearm, which is as far as I visualized. The graft did not visualize and as such, I could not comment as to whether there was stenosis involving the graft, but the artery was widely patent throughout with no atherosclerosis seen. Job ID: [id number]
[2018-06-23] MEDS: Atorvastatin Calcium 10 MG TAB PO SCH (20:20)
[2018-06-24] MEDS: Acetaminophen 325 MG TAB PO PRN (00:29)
[2018-06-24 06:16] LABS: Anion Gap 15 mmol/L (10-20); BUN (Urea Nitrogen) 33 mg/dL (8.9-20.6); Calc. Creatinine Clearance 0 mL/min (70-130); Calcium 9.1 mg/dL (7.8-10.44); Carbon Dioxide 27 mmol/L (22-29); Chloride 99 mmol/L (98-107); Estimated GFR-MDRD 10; Glucose 90 mg/dL (70-105); Potassium 4.6 mmol/L (3.5-5.1); Sodium 136 mmol/L (136-145)
[2018-06-24] MEDS: Labetalol 100 MG TAB PO SCH (07:07)
[2018-06-24] MEDS: Famotidine 20 MG TAB PO SCH (07:51)
[2018-06-24] MEDS: Saccharomyces boulardii 250 MG CAP PO SCH (07:52)
[2018-06-24] MEDS: hydrALAZINE 25 MG TAB PO SCH (07:52)
[2018-06-24] MEDS: FLUoxetine HCl 20 MG CAP PO SCH (07:52)
[2018-06-24] MEDS: Baclofen 10 MG TAB PO SCH (07:52)
[2018-06-24] MEDS: levETIRAcetam 500 MG TAB PO SCH (07:53)
[2018-06-24] MEDS: Sevelamer Carbonate 800 MG TAB PO SCH ×2 (07:53→13:54)
[2018-06-24] MEDS: Docusate 100 MG CAP PO SCH (07:53)
[2018-06-24] MEDS: Enoxaparin Sodium 30 MG/0.3 ML SYRINGE SC SCH (07:54)
[2018-06-24] MEDS: Aspirin 81 mg Enteric Coated Tablet PO SCH (07:54)
[2018-06-24] MEDS ORDERED: Lidocaine 1% PF 5 ML VIAL ONE (12:28)
[2018-06-24] MEDS ORDERED: PHENYLEPHRINE-NS 100 MCG/ML 10 ML SYRINGE ONE (12:28)
[2018-06-24] MEDS ORDERED: Heparin 10,000 UNITS/ 10 ML VIAL ONE (12:28)
[2018-06-24] MEDS ORDERED: PROPOFOL 200 MG/20 ML VIAL ONE (12:28)
[2018-06-24] MEDS ORDERED: Metoprolol Tartrate 5 MG/5 ML VIAL ONE (12:28)
--- NOTE | 2018-06-24 13:57 | PDOC.PN ---
- Subjective Encounter Start Date: 06/24/18 Encounter Start Time: 13:53 Subjective: no overnight events.Pt drwosy but easily woken up - Objective Resuscitation Status - Order Detail: 06/18/18 19:22 Resuscitation Status Routine Resuscitation Status: FULL: Full Resuscitation Discussed with: POA: daughter Ms.Calasih Nichols [phone] SEP Reviewed: Yes Vital Signs & Weight: Vital Signs (12 hours) Temp Pulse Resp BP BP BP Pulse Ox 06/24/18 12:01 97.8 F 86 16 136/84 96 06/24/18 08:40 98.0 F 79 12 153/82 H 97 06/24/18 08:00 97 06/24/18 07:52 82 145/88 H 06/24/18 07:07 82 145/88 H 06/24/18 04:00 98.3 F 82 16 145/88 H 97 Weight Weight 2.061 oz I&O: 06/23/18 06/24/18 06/25/18 06:59 06:59 06:59 Intake Total 1280 360 Balance 1280 360 Result Diagrams: 06/19/18 05:05 06/24/18 04:20 Phys Exam - Physical Examination Constitutional: NAD HEENT: PERRLA, moist MMs, sclera anicteric, oral pharynx no lesions Neck: no nodes, no JVD, supple, full ROM Respiratory: no wheezing, no rales, no rhonchi, clear to auscultation bilateral Cardiovascular: RRR, no significant murmur, no rub Gastrointestinal: soft, non-tender, no distention, positive bowel sounds Musculoskeletal: no edema, pulses present Psychiatric: normal affect Skin: no rash Dx/Plan (1) AV graft thrombosis Code(s): T82.868A - THROMBOSIS DUE TO VASCULAR PROSTH DEV/GRFT, INIT Status: Acute Qualifiers: Encounter type: subsequent encounter Qualified Code(s): T82.868D - Thrombosis due to vascular prosthetic devices, implants and grafts, subsequent encounter Comment: Graft revision today (2) Complex partial seizure Code(s): G40.209 - LOCAL-REL SYMPTC EPI W CMPLX PRT SEIZ,NOT NTRCT,W/O STAT EPI Status: Chronic Qualifiers: Epilepsy type: partial symptomatic Comment: on Keppra and phenytoin (3) ESRD (end stage renal disease) on dialysis Code(s): N18.6 - END STAGE RENAL DISEASE; Z99.2 - DEPENDENCE ON RENAL DIALYSIS Status: Chronic Comment: HD as tolerated (4) HTN (hypertension) Code(s): I10 - ESSENTIAL (PRIMARY) HYPERTENSION Status: Chronic Qualifiers: Hypertension type: essential hypertension Qualified Code(s): I10 - Essential (primary) hypertension (5) Other issues per previous notes Status: Chronic (6) h/o hemorrhagic cva Status: Chronic Comment: with right hemiplegia, cognitive dysfunction.hemorrhagic conversion after Ischemic CVA.on ASA and statin - Plan PT/OT, DVT proph w/lovenox, DVT proph w/SCDs Graft revision today.Angiogram yesterday was not revealing. -: hemodynamically stable. -: Hemodialysis for ESRD -: cont home meds as below.supportive care -: Fem site bleeding stopped w pressure-discussed w RN * . Review of Systems - Review of Systems Other: limited ROS due to aphasia from prior CVA - Medications/Allergies Allergies/Adverse Reactions: Allergies Allergy/AdvReac Type Severity Reaction Status Date / Time No Known Allergies Allergy Verified 06/18/18 22:40 Medications: Current Medications Acetaminophen (Tylenol) 650 mg PO Q4H PRN PRN Reason: Headache/Fever/Mild Pain (1-3) Last Admin: 06/24/18 00:29 Dose: 650 mg Aspirin (Ecotrin) 81 mg PO DAILY [facility] Last Admin: 06/24/18 07:54 Dose: Not Given Atorvastatin Calcium (Lipitor) 10 mg PO HS [facility] Last Admin: 06/23/18 20:20 Dose: 10 mg Baclofen (Lioresal) 10 mg PO TID [facility] Last Admin: 06/24/18 07:52 Dose: 10 mg Docusate Sodium (Colace) 100 mg PO BID [facility] Last Admin: 06/24/18 07:53 Dose: 100 mg Enoxaparin Sodium (Lovenox) 30 mg SC 0900 [facility] Last Admin: 06/24/18 07:54 Dose: 30 mg Famotidine (Pepcid) 20 mg PO DAILY [facility] Last Admin: 06/24/18 07:51 Dose: 20 mg Fluoxetine HCl (Prozac) 20 mg PO DAILY [facility] Last Admin: 06/24/18 07:52 Dose: 20 mg Guaifenesin/Dextromethorphan (Robitussin Dm) 15 ml PO Q4H PRN PRN Reason: Cough Hydralazine HCl (Apresoline) 10 mg SLOW IVP Q4H PRN PRN Reason: SBP > 180 Last Admin: 06/19/18 08:28 Dose: 10 mg Hydralazine HCl (Apresoline) 75 mg PO TID [facility] Last Admin: 06/24/18 07:52 Dose: 75 mg Labetalol HCl (Normodyne) 100 mg PO BID [facility] Last Admin: 06/24/18 07:07 Dose: 100 mg Levetiracetam (Keppra) 250 mg PO BID [facility] Last Admin: 06/24/18 07:53 Dose: 250 mg Phenytoin Sodium (Dilantin Er) 400 mg PO [facility] Last Admin: 06/23/18 20:20 Dose: 400 mg Saccharomyces Boulardii (Florastor) 250 mg PO DAILY [facility] Last Admin: 06/24/18 07:52 Dose: 250 mg Sevelamer Carbonate (Renvela) 2,400 mg PO TID[facility] Last Admin: 06/24/18 07:53 Dose: 2,400 mg Sodium Chloride (Flush - Normal Saline) 10 ml IVF Q12HR [facility] Last Admin: 06/24/18 07:54 Dose: 10 ml Sodium Chloride (Flush - Normal Saline) 10 ml IVF PRN PRN PRN Reason: Saline Flush Last Admin: 06/19/18 21:16 Dose: 10 ml Sodium Chloride (Flush - Normal Saline) 10 ml IVF PRN PRN PRN Reason: Saline Flush
[2018-06-24] MEDS ORDERED: Protamine Sulfate 50 MG/5 ML VIAL ONE (15:11)
[2018-06-24] MEDS ORDERED: Bupivacaine/Epinephrine 0.25% 30 ML VIAL ONE (15:11)
[2018-06-24] MEDS ORDERED: Heparin 5,000 UNITS/ML VIAL ONE ×2 (15:11→15:21)
[2018-06-24] MEDS ORDERED: Lidocaine 2% PF 5 ML VIAL ONE ×2 (15:12→15:20)
[2018-06-24] MEDS ORDERED: Ioversol 68 % 50 ML VIAL ONE (15:12)
[2018-06-24] MEDS ORDERED: Heparin 10,000 UNITS/1 ML VIAL ONE (15:18)
[2018-06-24] MEDS ORDERED: Midazolam HCl 2 mg/2 ml Vial ONE ×2 (16:56→18:41)
[2018-06-24] MEDS ORDERED: EPINEPHrine 1 MG/10 ML Abboject SYRINGE ONE (16:56)
[2018-06-24] MEDS ORDERED: Bupivacaine PF 0.5% 30 ML VIAL ONE (16:56)
[2018-06-24] MEDS ORDERED: Fentanyl 100 MCG/2 ML VIAL ONE ×3 (16:56→23:17)
[2018-06-24] MEDS ORDERED: PROPOFOL 20 ML ONE (21:38)
[2018-06-24] MEDS ORDERED: hydrALAZINE 20 MG/ML VIAL ONE (23:32)
[2018-06-24] MEDS ORDERED: Labetalol HCl 100 MG/20 ML VIAL SLOW IVP SCH (23:45)
[2018-06-24] MEDS ORDERED: hydrALAZINE 20 MG/ML VIAL SLOW IVP SCH (23:45)
[2018-06-24] MEDS ORDERED: Promethazine HCl 25 MG/ML VIAL IM/IV PRN (23:52)
[2018-06-24] MEDS ORDERED: Non-Formulary Medication 1 EACH PO PRN (23:52)
[2018-06-24] MEDS ORDERED: Ondansetron HCl/PF 4 MG/2 ML Vial IVP PRN (23:52)
[2018-06-25] MEDS: Docusate 100 MG CAP PO SCH ×2 (00:35→08:06)
[2018-06-25] MEDS: Atorvastatin Calcium 10 MG TAB PO SCH (00:35)
[2018-06-25] MEDS: levETIRAcetam 500 MG TAB PO SCH ×2 (00:35→08:05)
[2018-06-25] MEDS: Baclofen 10 MG TAB PO SCH ×5 (00:36→16:09)
[2018-06-25] MEDS: hydrALAZINE 25 MG TAB PO SCH ×5 (00:38→16:09)
[2018-06-25] MEDS: Labetalol 100 MG TAB PO SCH ×2 (00:39→08:04)
[2018-06-25] MEDS ORDERED: Acetaminophen 1,000 MG in Premix Bag 1 BAG IVPB PRN (00:53)
[2018-06-25] MEDS ORDERED: Morphine 4 MG/ML VIAL SLOW IVP PRN ×2 (00:54)
[2018-06-25] MEDS: Sevelamer Carbonate 800 MG TAB PO SCH ×3 (07:48→11:13)
[2018-06-25] MEDS: FLUoxetine HCl 20 MG CAP PO SCH (08:05)
[2018-06-25] MEDS: Saccharomyces boulardii 250 MG CAP PO SCH (08:05)
[2018-06-25] MEDS: Aspirin 81 mg Enteric Coated Tablet PO SCH (08:05)
[2018-06-25] MEDS: Enoxaparin Sodium 30 MG/0.3 ML SYRINGE SC SCH (08:06)
[2018-06-25] MEDS: Famotidine 20 MG TAB PO SCH (08:06)
--- NOTE | 2018-06-25 14:57 | PDOC.PN ---
- Subjective Encounter Start Date: 06/25/18 Encounter Start Time: 14:54 Subjective: seen and examined in dialysis.denies nay discomfort - Objective Resuscitation Status - Order Detail: 06/18/18 19:22 Resuscitation Status Routine Resuscitation Status: FULL: Full Resuscitation Discussed with: POA: daughter Ms.Calasih Nichols [phone] SEP Reviewed: Yes Vital Signs & Weight: Vital Signs (12 hours) Temp Pulse Resp BP BP Pulse Ox 06/25/18 12:51 97.8 F 96 16 90/56 L 97 06/25/18 08:05 85 158/85 H 06/25/18 08:04 85 158/85 H 06/25/18 08:00 98.5 F 85 16 158/85 H 98 06/25/18 07:49 80 06/25/18 07:47 80 06/25/18 04:00 98.1 F 80 16 162/84 H 96 Weight Weight 2.061 oz I&O: 06/24/18 06/25/18 06/26/18 06:59 06:59 06:59 Intake Total 360 100 Balance 360 100 Result Diagrams: 06/19/18 05:05 06/24/18 04:20 Phys Exam - Physical Examination Constitutional: NAD HEENT: PERRLA, moist MMs, sclera anicteric, oral pharynx no lesions Neck: no nodes, no JVD, supple, full ROM Respiratory: no wheezing, no rales, no rhonchi, clear to auscultation bilateral Cardiovascular: RRR, no significant murmur Gastrointestinal: soft, non-tender, no distention, positive bowel sounds Musculoskeletal: no edema, pulses present Neurological: non-focal, normal sensation, moves all 4 limbs Psychiatric: normal affect, A&O x 3 Skin: no rash Dx/Plan (1) AV graft thrombosis Code(s): T82.868A - THROMBOSIS DUE TO VASCULAR PROSTH DEV/GRFT, INIT Status: Acute Qualifiers: Encounter type: subsequent encounter Qualified Code(s): T82.868D - Thrombosis due to vascular prosthetic devices, implants and grafts, subsequent encounter Comment: Graft revision yesterday (2) Complex partial seizure Code(s): G40.209 - LOCAL-REL SYMPTC EPI W CMPLX PRT SEIZ,NOT NTRCT,W/O STAT EPI Status: Chronic Qualifiers: Epilepsy type: partial symptomatic Comment: on Keppra and phenytoin (3) ESRD (end stage renal disease) on dialysis Code(s): N18.6 - END STAGE RENAL DISEASE; Z99.2 - DEPENDENCE ON RENAL DIALYSIS Status: Chronic Comment: HD as tolerated (4) HTN (hypertension) Code(s): I10 - ESSENTIAL (PRIMARY) HYPERTENSION Status: Chronic Qualifiers: Hypertension type: essential hypertension Qualified Code(s): I10 - Essential (primary) hypertension (5) Other issues per previous notes Status: Chronic (6) h/o hemorrhagic cva Status: Chronic Comment: with right hemiplegia, cognitive dysfunction.hemorrhagic conversion after Ischemic CVA.on ASA and statin - Plan PT/OT, out of bed/ambulate, DVT proph w/SCDs Trialysis catheter is removed.AV fistula is working. -: hemodynamically stable -: OK to DC home w HH * . Review of Systems - Review of Systems Constitutional: negative: fever, chills, sweats, weakness, malaise, other Respiratory: negative: Cough, Dry, Shortness of Breath, Hemoptysis, SOB with Excertion, Pleuritic Pain, Sputum, Wheezing Cardiovascular: negative: chest pain, palpitations, orthopnea, paroxysmal nocturnal dyspnea, edema, light headedness, other Gastrointestinal: negative: Nausea, Vomiting, Abdominal Pain, Diarrhea, Constipation, Melena, Hematochezia, Other Genitourinary: negative: Dysuria, Frequency, Incontinence, Hematuria, Retention , Other Musculoskeletal: negative: Neck Pain, Shoulder Pain, Arm Pain, Back Pain, Hand Pain, Leg Pain, Foot Pain, Other Neurological: negative: Weakness, Numbness, Incoordination, Change in Speech, Confusion, Seizures, Other - Medications/Allergies Allergies/Adverse Reactions: Allergies Allergy/AdvReac Type Severity Reaction Status Date / Time No Known Allergies Allergy Verified 06/18/18 22:40 Medications: Current Medications Acetaminophen (Tylenol) 650 mg PO Q4H PRN PRN Reason: Headache/Fever/Mild Pain (1-3) Last Admin: 06/24/18 00:29 Dose: 650 mg Aspirin (Ecotrin) 81 mg PO DAILY [facility] Last Admin: 06/25/18 08:05 Dose: 81 mg Atorvastatin Calcium (Lipitor) 10 mg PO HS [facility] Last Admin: 06/25/18 00:35 Dose: 10 mg Baclofen (Lioresal) 10 mg PO TID [facility] Last Admin: 06/25/18 08:05 Dose: 10 mg Docusate Sodium (Colace) 100 mg PO BID [facility] Last Admin: 06/25/18 08:06 Dose: 100 mg Enoxaparin Sodium (Lovenox) 30 mg SC 0900 [facility] Last Admin: 06/25/18 08:06 Dose: 30 mg Famotidine (Pepcid) 20 mg PO DAILY [facility] Last Admin: 06/25/18 08:06 Dose: 20 mg Fluoxetine HCl (Prozac) 20 mg PO DAILY [facility] Last Admin: 06/25/18 08:05 Dose: 20 mg Guaifenesin/Dextromethorphan (Robitussin Dm) 15 ml PO Q4H PRN PRN Reason: Cough Hydralazine HCl (Apresoline) 10 mg SLOW IVP Q4H PRN PRN Reason: SBP > 180 Last Admin: 06/19/18 08:28 Dose: 10 mg Hydralazine HCl (Apresoline) 75 mg PO TID [facility] Last Admin: 06/25/18 08:05 Dose: 75 mg Acetaminophen 1,000 mg/ Device 100 mls @ 400 mls/hr IVPB Q6HR PRN PRN Reason: Mild Pain 1-[address] Stop: 06/26/18 00:54 Labetalol HCl (Normodyne) 100 mg PO BID [facility] Last Admin: 06/25/18 08:04 Dose: 100 mg Levetiracetam (Keppra) 250 mg PO BID [facility] Last Admin: 06/25/18 08:05 Dose: 250 mg Morphine Sulfate (Morphine) 2 mg SLOW IVP Q1H PRN PRN Reason: Moderate Pain (4-6) Morphine Sulfate (Morphine) 4 mg SLOW IVP Q1H PRN PRN Reason: Severe Pain (7-10) Phenytoin Sodium (Dilantin Er) 400 mg PO HS [facility] Last Admin: 06/25/18 00:36 Dose: 400 mg Saccharomyces Boulardii (Florastor) 250 mg PO DAILY [facility] Last Admin: 06/25/18 08:05 Dose: 250 mg Sevelamer Carbonate (Renvela) 2,400 mg PO TID[facility] Last Admin: 06/25/18 11:13 Dose: Not Given Sodium Chloride (Flush - Normal Saline) 10 ml IVF Q12HR [facility] Last Admin: 06/25/18 08:06 Dose: 10 ml Sodium Chloride (Flush - Normal Saline) 10 ml IVF PRN PRN PRN Reason: Saline Flush Last Admin: 06/19/18 21:16 Dose: 10 ml Sodium Chloride (Flush - Normal Saline) 10 ml IVF PRN PRN PRN Reason: Saline Flush
[2018-06-25 16:11] VITALS: BP 95/53
[2018-06-25 16:12] VITALS: TEMP 97.5
--- NOTE | 2018-06-26 18:36 | DIS ---
DATE OF ADMISSION: 06/19/2018 DATE OF DISCHARGE: 06/25/2018 CONDITION AT THE TIME OF DISCHARGE: Stable and improved. DISCHARGE DISPOSITION: Home with home health. DISCHARGE DIAGNOSES: 1. Arteriovenous fistula thrombosis, status post revision. 2. End-stage renal disease, on hemodialysis. 3. History of complex partial seizures, stable. 4. Hypertension. 5. History of CVA with residual paralysis. DISCHARGE MEDICATIONS: Resume home medications, no changes were made, as follows; 1. Dilantin 300 mg at bedtime. 2. Pepcid 20 mg daily. 3. Prozac 20 mg daily. 4. Baclofen 10 t.i.d. 5. Lipitor 10 daily. 6. Aspirin 81 daily. 7. Sevelamer 3 tablet p.o. t.i.d. 8. Keppra 500 p.o. b.i.d. IN-HOUSE CONSULTATION: 1. General Surgery, Dr. Johansen. 2. Cardiovascular Surgery, Dr. Brunson. PROCEDURES DONE IN THE HOSPITAL: 1. Femoral hemodialysis catheter placement on 06/19/[address] Johansen. 2. AV shunt angiogram on 06/21/2018 with thrombolysis and thrombectomy of the clotted right upper extremity AV dialysis fistula by Interventional Radiology. This shows focal narrowing with poor inflow at the level of AV anastomosis. 3. Arterial doppler ultrasound of upper extremity which shows thrombosis of the right upper extremity AV dialysis graft. 4. Right arm angiogram by Dr. Brunson on 06/23/2018, which was incomplete study as the graft was not visualized. 5. AV fistula revision by Dr. Johansen on 06/24/2018. HISTORY OF PRESENTING ILLNESS: Mr. Nichols is a 52-year-old male with known history of CVA with residual right-sided hemiplegia, who is wheelchair bound as well as history of seizure disorder and end-stage renal disease, on hemodialysis; presented to the ER with complaints of high blood pressure. He presented initially to dialysis where his fistula graft was not accessible as it was found to be thrombosed and he was sent to the emergency room for surgical evaluation. He was admitted under Medicine Service and General Surgery was consulted. Please see admission history and physical for further details. HOSPITAL COURSE: Dr. Johansen saw the patient and initially a trialysis catheter was placed in the femoral site for continuation of hemodialysis. He was medically managed with improved control of his blood pressure. His software development coordinator, Dr. Patel, was also consulted. Dr. Johansen recommended possible IR thrombolysis of the clot, which was attempted. Dr. Brunson was also consulted and he underwent Doppler ultrasound as well as angiogram. Eventually, he had fistula revision when Interventional Radiology procedure was unable to open up his fistula. Dr. Johansen did the procedure and the patient showed successful use of the new fistula. He was getting hemodialysis with a new fistula prior to discharge and was tolerating it well. He was seen and examined prior to discharge. Please see hospitalist progress note from the date of discharge for further details. PRIMARY CARE PHYSICIAN: Dr. Luis Kyle. Job ID: [id number]
[2018-06-29 06:13] LABS: Alb/Glob Ratio 1.2 (0.7-1.7); Albumin 4.1 g/dL (2.9-4.4); Alpha-1-Globulin 0.1 g/dL (0.0-0.4); Alpha-2-Globulin 0.6 g/dL (0.4-1.0); Beta-Globulin 0.9 g/dL (0.7-1.3); Gamma-Globulin 2.2 g/dL (0.4-1.8); Globulin, Total 3.7 g/dL (2.2-3.9); IgA - Total IgA (Sendout) 298 mg/dL (90-386); Immunoglobulin - G (Sendout) 2206 mg/dL (700-1600); Immunoglobulin - M (Sendout) 63 mg/dL (20-172); M-Spike 0.6 g/dL (Not Observed)
--- NOTE | 2018-06-29 09:37 | PDOC.OP ---
Operative Note - Operative Note Operative Note: PROCEDURE: Revision and thrombectomy of right upper arm AV graft DATE OF PROCEDURE: 06/24/2018 SURGEON: Ron Johansen M.D. 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 He underwent thrombectomy but had a tight stenosis at the arterial anastomosis and re-thrombosed shortly after his thrombectomy. Angiographic did not show any inflow issues. Recommendation was made to proceed with revision of the arterial anastomosis and thrombectomy of the graft. PROCEDURE IN DETAIL: After informed consent was obtained and appropriate preoperative and about except belt back operator the patient was taken to the operating room he was placed in supine position and anesthesia was administered. A right arm block had been placed preoperatively by anesthesia and adequacy of this block was confirmed. He was prepped and draped in standard sterile fashion and an incision made over the graft near the arterial anastomosis. Dissection was carried down to the graft which was dissected free circumferentially. An anterior transverse incision was made and Justina catheter passed toward the axilla. A moderate amount of clot was removed and venous backflow reestablished. The graft was flushed with heparinized saline and clamped. The Justina catheter was attempted to be placed through the arterial inflow but could not be passed, confirming the presence of a stricture or obstruction at that level. The AV graft was transected at an angle and the arterial stump oversewn with Prolene. An incision was made over the distal brachial artery just distal to the patient's previous basilic vein anastomosis. The artery was dissected free circumferentially and confirmed to be of adequate quality and caliber to support a graft. A tunnel was created between this incision and the graft and a 4-7 mm tapered graft brought through this tunnel. The graft was cut to length with an angle matching that of the AV graft and an end-to-end anastomosis created to the AV graft with a running Prolene suture. The tapered end was then cut at an angle and heparin administered systemically and allowed to circulate for 3 minutes. The artery was then clamped proximally and distally and an anterior arteriotomy created with an 11 blade and extended with Baptiste scissors. A wide end-to-side anastomosis was created with a running 6-0 Prolene suture with excellent technical result. Prior to tying down the anastomosis the clamp on the graft was removed confirming good backflow. The anastomosis was then tied down and flow established first through the graft and then through the distal artery. The patient had an excellent brachial and radial pulse following release of the clamp and excellent flow by Doppler through the graft. Protamine was administered but the patient continued to have oozing from the vascularized tissues surrounding the AV graft. This was controlled with Bovie electrocautery and sutures. Eventually the suture line bleeding resolved with Surgicel and compression and the wounds were able to be closed with subcutaneous 3-0 Monocryl suture and subcuticular 4-0 Monocryl suture. Dermabond dressings were placed and once these were dry an Storm wrap was laced to the operative site. The patient was taken to recovery in good condition. Estimated blood loss was minimal. There were no complications. There were no specimens.
== END 2018-06-25 17:04 | disposition home health service (06) | DRG 252 ==
LOC: ERS 16:04 → 2NO 19:47 → OBSVTOIN 06-19 07:33 → T4-B 06-20 10:59
PROVIDERS: ADMIT Internal Medicine; ATTEND Internal Medicine
PROC: 02HV33Z Insertion of Infusion Device into Superior Vena Cava, Percutaneous Approach (ICD-10-PCS; 2018-06-19)
PROC: B548ZZA Ultrasonography of Superior Vena Cava, Guidance (ICD-10-PCS; 2018-06-19)
PROC: 5A1D70Z Performance of Urinary Filtration, Intermittent, Less than 6 Hours Per Day (ICD-10-PCS; 2018-06-19)
PROC: 5A1D70Z Performance of Urinary Filtration, Intermittent, Less than 6 Hours Per Day (ICD-10-PCS; 2018-06-19)
PROC: 3E03317 Introduction of Other Thrombolytic into Peripheral Vein, Percutaneous Approach (ICD-10-PCS; principal; 2018-06-21)
PROC: 03773ZZ Dilation of Right Brachial Artery, Percutaneous Approach (ICD-10-PCS; 2018-06-21)
PROC: B34 Imaging, Upper Arteries, Ultrasonography (ICD-10-PCS; 2018-06-23)
DX: T82.868A Thrombosis due to vascular prosthetic devices, implants and grafts, initial encounter (principal); N18.6 End stage renal disease; I69.151 Hemiplegia and hemiparesis following nontraumatic intracerebral hemorrhage affecting right dominant side; I12.0 Hypertensive chronic kidney disease with stage 5 chronic kidney disease or end stage renal disease; G40.209 Localization-related (focal) (partial) symptomatic epilepsy and epileptic syndromes with complex partial seizures, not intractable, without status epilepticus; Z99.2 Dependence on renal dialysis; I69.120 Aphasia following nontraumatic intracerebral hemorrhage; I69.118 Other symptoms and signs involving cognitive functions following nontraumatic intracerebral hemorrhage
CPT/HCPCS: 36217; 36415; 36416; 36901; 36902; 36904; 71045; 75710; 75902; 76942; 80048; 80053; 80069; 83735; 84100; 84155; 84165; 84484; 85025; 86334; 90935; 93005; 93931; 99284; C1757; C1769; C1887; G0257; J0171; J0360; J1644; J1650; J2001; J2250; J2704; J2720; J2997; J3010; J3490; L8670; Q9967; S0020

== ENCOUNTER 2021-12-17 15:10 | Emergency (ER) | payer MEDICARE ==
[2021-12-17 16:37] LABS: #Eosinphils 0.1 thou/uL (0.0-0.7); #Lymphocytes 1.1 thou/uL (1.20-3.40); #Monocytes 0.4 thou/uL (0.11-0.59); #Neutrophils 8.9 thou/uL (1.40-6.50); %Eosinophils 0.6 % (0.0-10.0); %Lymphocytes 10.3 % (21.0-51.0); %Monocytes 3.6 % (0.0-10.0); %Neutrophils 85.5 % (42.0-75.0); Hemoglobin 13.8 g/dL (14.0-18.0); Mean Corpuscular HGB CONC 32.4 g/dL (32.0-36.0); Mean Corpuscular Hemoglobin 28.2 pg (27.0-31.0); Mean Corpuscular Volume 87.1 fL (78.0-98.0); Mean Platelet Volume 9.3 fL (7.4-10.4); Platelet Count 234 thou/uL (130-400); RBC Distribution Width 19.9 % (11.5-14.5); Red Blood Cell (RBC) Count 4.88 mill/uL (4.70-6.10); White Blood Cell (WBC) Count 10.4 thou/uL (4.8-10.8)
[2021-12-17 16:57] LABS: ALT (SGPT) 17 U/L (8-55); AST (SGOT) 21 U/L (5-34); Albumin 3.6 g/dL (3.5-5.0); Alkaline Phosphatase 93 U/L (40-110); Anion Gap 16 mmol/L (10-20); BUN (Urea Nitrogen) 52 mg/dL (8.4-25.7); Bilirubin, Total 0.5 mg/dL (0.2-1.2); Calc. Creatinine Clearance 0 mL/min (70-130); Calcium 9.4 mg/dL (7.8-10.44); Carbon Dioxide 27 mmol/L (22-29); Chloride 98 mmol/L (98-107); Globulin 4.4 g/dL (2.4-3.5); Glucose 90 mg/dL (70-105); Potassium 3.3 mmol/L (3.5-5.1); Sodium 138 mmol/L (136-145)
[2021-12-17 20:05] LABS: Bacteria/HPF 4+ HPF (None Seen); Bilirubin Negative (Negative); Blood, Urine 2+ (Negative); Clarity Extra Turbid (Clear); Glucose, Urine (Dipstick) 50 mg/dL (Negative); Ketone, Urine Negative (Negative); Leukocyte 250 Leu/uL (Negative); Nitrite Negative (Negative); Protein, Urine (Dipstick) 300 mg/dL (Neg-Trace); RBC/HPF Greater than 50 HPF (0-3); Specific Gravity, Urine 1.035 (1.002-1.036); Squamous Epithelial 0-3 HPF (0-3); Urobilinogen Normal mg/dL (Less than 2); WBC/HPF Greater than 50 HPF (0-3)
== END 2021-12-17 22:35 | disposition home or self-care (01) ==
LOC: ERS 15:10
DX: N30.00 Acute cystitis without hematuria (principal); I12.0 Hypertensive chronic kidney disease with stage 5 chronic kidney disease or end stage renal disease; N18.6 End stage renal disease; Z87.19 Personal history of other diseases of the digestive system; Z86.73 Personal history of transient ischemic attack (TIA), and cerebral infarction without residual deficits; Z99.2 Dependence on renal dialysis; Z79.899 Other long term (current) drug therapy
CPT/HCPCS: 36415; 74176; 80053; 81003; 81015; 85025

== ENCOUNTER 2022-04-10 13:06 | Inpatient (IN) | payer MEDICARE ==
[2022-04-10 14:26] LABS: #Eosinphils 0.1 thou/uL (0.0-0.7); #Lymphocytes 0.7 thou/uL (1.20-3.40); #Monocytes 0.3 thou/uL (0.11-0.59); #Neutrophils 4.3 thou/uL (1.40-6.50); %Basophils 0.5 % (0.0-1.0); %Monocytes 4.8 % (0.0-10.0); %Neutrophils 80.7 % (42.0-75.0); Hemoglobin 7.6 g/dL (14.0-18.0); Mean Corpuscular HGB CONC 31.9 g/dL (32.0-36.0); Mean Corpuscular Hemoglobin 27.9 pg (27.0-31.0); Mean Corpuscular Volume 87.4 fL (78.0-98.0); Platelet Count 354 thou/uL (130-400); RBC Distribution Width 18.7 % (11.5-14.5); Red Blood Cell (RBC) Count 2.71 mill/uL (4.70-6.10); White Blood Cell (WBC) Count 5.3 thou/uL (4.8-10.8)
[2022-04-10 14:43] LABS: ALT (SGPT) 15 U/L (8-55); AST (SGOT) 25 U/L (5-34); Alkaline Phosphatase 89 U/L (40-110); Anion Gap 19 mmol/L (10-20); BUN (Urea Nitrogen) 31 mg/dL (8.4-25.7); Bilirubin, Total 1.1 mg/dL (0.2-1.2); Calc. Creatinine Clearance 0 mL/min (70-130); Calcium 8.7 mg/dL (7.8-10.44); Carbon Dioxide 21 mmol/L (22-29); Chloride 98 mmol/L (98-107); Estimated GFR 5; Globulin 4.5 g/dL (2.4-3.5); Glucose 85 mg/dL (70-105); Potassium 3.4 mmol/L (3.5-5.1); Protein, Total 7.5 g/dL (6.0-8.3); Sodium 135 mmol/L (136-145)
[2022-04-10] MEDS ORDERED: guaiFENesin 200 MG TAB PO PRN (17:14)
[2022-04-10] MEDS ORDERED: Ondansetron PF 4 MG/2 ML Vial IVP PRN (17:15)
[2022-04-10] MEDS ORDERED: Acetaminophen 325 MG TAB PO PRN (17:15)
[2022-04-10] MEDS ORDERED: Ondansetron ODT 4 MG TAB PO PRN (17:15)
[2022-04-10] MEDS ORDERED: Aspirin Chewable 81 MG TAB ONE (17:18)
[2022-04-10] MEDS ORDERED: Potassium Chloride 20 MEQ TAB PO SCH (17:35)
[2022-04-10 18:13] LABS: Magnesium 1.7 mg/dL (1.6-2.6)
[2022-04-10 18:18] LABS: Troponin I 0.044 ng/mL (< 0.028)
[2022-04-10 20:16] LABS: Hemoglobin 6.7 g/dL (14.0-18.0)
[2022-04-10 20:21] LABS: SARS-CoV-2 NAA Rapid Test DETECTED (NotDetected)
[2022-04-10 20:37] LABS: Troponin I 0.054 ng/mL (< 0.028)
[2022-04-10] MEDS ORDERED: Famotidine 20 MG TAB PO SCH (21:00)
[2022-04-10] MEDS ORDERED: Heparin 5,000 UNITS/ML VIAL SC SCH (21:00)
[2022-04-11 00:31] LABS: Bilirubin Moderate (Negative); Blood, Urine Large (Negative); Glucose, Urine (Dipstick) 100 mg/dL (Negative); Ketone, Urine 15 mg/dL (Negative); Leukocyte Moderate (Negative); Nitrite Positive (Negative); Protein, Urine (Dipstick) > or equal to 300 mg/dL (Neg-Trace)
[2022-04-11 00:32] LABS: Clarity Turbid (Clear)
[2022-04-11 00:42] LABS: Bacteria/HPF 4+ HPF (None Seen); Squamous Epithelial 0-3 HPF (0-3); WBC/HPF Greater Than 50 HPF (0-3)
[2022-04-11 00:44] LABS: Urine Culture Reflex Yes Yes
[2022-04-11 05:03] LABS: Anion Gap 14 mmol/L (10-20); BUN (Urea Nitrogen) 45 mg/dL (8.4-25.7); Calc. Creatinine Clearance 6 mL/min (70-130); Calcium 7.9 mg/dL (7.8-10.44); Carbon Dioxide 25 mmol/L (22-29); Chloride 99 mmol/L (98-107); Estimated GFR 4; Glucose 100 mg/dL (70-105); Potassium 3.7 mmol/L (3.5-5.1); Sodium 134 mmol/L (136-145)
[2022-04-11 06:37] LABS: Hemoglobin 6.7 g/dL (14.0-18.0); Mean Corpuscular HGB CONC 33.1 g/dL (32.0-36.0); Mean Corpuscular Volume 87.8 fL (78.0-98.0); Mean Platelet Volume 7.9 fL (7.4-10.4); Platelet Count 315 thou/uL (130-400); RBC Distribution Width 17.3 % (11.5-14.5); White Blood Cell (WBC) Count 4.8 thou/uL (4.8-10.8)
[2022-04-11 06:38] LABS: Band 1 % (5-11); Eosinophils 4 % (0-10); Lymphocytes 16 % (21-51); MDiff Complete? YES; Monocytes 4 % (0-10); Neutrophil 75 % (42-75)
[2022-04-11] MEDS: Ascorbic Acid 500 mg Chewable Tablet PO SCH (07:57)
[2022-04-11] MEDS: Aspirin 81 mg Enteric Coated Tablet PO SCH (07:57)
[2022-04-11] MEDS: Zinc Sulfate 220 MG CAP PO SCH (07:57)
[2022-04-11] MEDS: levETIRAcetam 500 MG TAB PO SCH (07:57)
[2022-04-11 10:18] LABS: HBSAg Index 0.36 S/CO (0-0.99); Hep B Core Total Ab Non-Reactive (NonReactive); Hep B Core Total Index 0.22 S/CO (0-0.79); Hep B Surf Ag Non-Reactive S/CO (NonReactive)
[2022-04-11 10:19] LABS: Hep C IgG Ab Non-Reactive (NonReactive); Hep C Index 0.12 S/CO (0-0.79)
[2022-04-11 10:28] LABS: HBSAB Concentration 12.43 mIU/mL; Hep B Surf AB Reactive (NonReactive)
[2022-04-11 14:43] LABS: Campy jejuni + coli by PCR Negative (Negative); STEC Shiga Toxin 1+2 Negative (Negative); Salmonella spp. by PCR Negative (Negative); Shigella spp + EIEC by PCR Negative (Negative)
[2022-04-11] MEDS ORDERED: Vancomycin 1 GM in Premix Bag 1 BAG IVPB SCH (17:15)
[2022-04-12] MEDS ORDERED: ALPRAZolam 0.5 MG TAB PO SCH (03:00)
[2022-04-12 04:57] LABS: Reticulocyte Count 4.6 % (0.5-1.5)
[2022-04-12 04:58] LABS: Anion Gap 20 mmol/L (10-20); BUN (Urea Nitrogen) 51 mg/dL (8.4-25.7); Calc. Creatinine Clearance 5 mL/min (70-130); Calcium 7.9 mg/dL (7.8-10.44); Carbon Dioxide 19 mmol/L (22-29); Chloride 94 mmol/L (98-107); Estimated GFR 4; Glucose 79 mg/dL (70-105); Iron 96 ug/dL (65-175); Potassium 4.6 mmol/L (3.5-5.1); Sodium 128 mmol/L (136-145)
[2022-04-12 05:23] LABS: Eosinophils 2 % (0-10); Hemoglobin 6.5 g/dL (14.0-18.0); Lymphocytes 14 % (21-51); MDiff Complete? YES; Mean Corpuscular HGB CONC 30.6 g/dL (32.0-36.0); Mean Corpuscular Volume 91.3 fL (78.0-98.0); Mean Platelet Volume 8.4 fL (7.4-10.4); Monocytes 5 % (0-10); Neutrophil 79 % (42-75); Platelet Count 325 thou/uL (130-400); Polychromasia SLIGHT = 2-3 cells (100X) (0-2/hpf); RBC Distribution Width 17.6 % (11.5-14.5); Red Blood Cell (RBC) Count 2.33 mill/uL (4.70-6.10); White Blood Cell (WBC) Count 6.6 thou/uL (4.8-10.8)
[2022-04-12] MEDS: Zinc Sulfate 220 MG CAP PO SCH (09:55)
[2022-04-12] MEDS: Ascorbic Acid 500 mg Chewable Tablet PO SCH (09:55)
[2022-04-12] MEDS: levETIRAcetam 500 MG TAB PO SCH (09:55)
[2022-04-12] MEDS: Aspirin 81 mg Enteric Coated Tablet PO SCH (09:55)
[2022-04-12 11:33] VITALS: BMI 17.9
[2022-04-13 04:57] LABS: #Eosinphils 0.1 thou/uL (0.0-0.7); #Lymphocytes 1.2 thou/uL (1.20-3.40); #Monocytes 0.5 thou/uL (0.11-0.59); #Neutrophils 5.8 thou/uL (1.40-6.50); %Basophils 0.6 % (0.0-1.0); %Eosinophils 0.8 % (0.0-10.0); %Lymphocytes 15.6 % (21.0-51.0); %Neutrophils 76.9 % (42.0-75.0); Hemoglobin 8.6 g/dL (14.0-18.0); Mean Corpuscular HGB CONC 31.6 g/dL (32.0-36.0); Mean Corpuscular Hemoglobin 28.3 pg (27.0-31.0); Mean Corpuscular Volume 89.6 fL (78.0-98.0); Mean Platelet Volume 7.6 fL (7.4-10.4); Platelet Count 355 thou/uL (130-400); RBC Distribution Width 16.6 % (11.5-14.5); Red Blood Cell (RBC) Count 3.05 mill/uL (4.70-6.10); White Blood Cell (WBC) Count 7.5 thou/uL (4.8-10.8)
[2022-04-13 05:13] LABS: Anion Gap 16 mmol/L (10-20); BUN (Urea Nitrogen) 23 mg/dL (8.4-25.7); Calc. Creatinine Clearance 8 mL/min (70-130); Calcium 8.1 mg/dL (7.8-10.44); Carbon Dioxide 27 mmol/L (22-29); Chloride 96 mmol/L (98-107); Estimated GFR 6; Glucose 99 mg/dL (70-105); Potassium 3.6 mmol/L (3.5-5.1); Sodium 135 mmol/L (136-145)
[2022-04-13] MEDS: Aspirin 81 mg Enteric Coated Tablet PO SCH (09:43)
[2022-04-13] MEDS: Zinc Sulfate 220 MG CAP PO SCH (09:43)
[2022-04-13] MEDS: levETIRAcetam 500 MG TAB PO SCH (09:43)
[2022-04-13] MEDS: Ascorbic Acid 500 mg Chewable Tablet PO SCH (09:43)
[2022-04-13] MEDS: Oxacillin 2 GM in Sodium Chloride 0.9% 100 ML IVPB SCH ×2 (17:18→22:47)
[2022-04-13] MEDS ORDERED: EPOETIN ALFA-EPBX (ESRD) 3,000 UNIT/ML VIAL SC SCH (22:00)
[2022-04-14] MEDS: Oxacillin 2 GM in Sodium Chloride 0.9% 100 ML IVPB SCH ×2 (05:20→13:49)
[2022-04-14] MEDS: levETIRAcetam 500 MG TAB PO SCH (09:32)
[2022-04-14] MEDS: Zinc Sulfate 220 MG CAP PO SCH (09:32)
[2022-04-14] MEDS: Aspirin 81 mg Enteric Coated Tablet PO SCH (09:32)
[2022-04-14] MEDS: Ascorbic Acid 500 mg Chewable Tablet PO SCH (09:32)
[2022-04-14 16:08] VITALS: BP 136/63; TEMP 98.4
[2022-04-15 09:17] LABS: Norovirus GI Negative (Negative); Norovirus GII Negative (Negative)
== END 2022-04-14 17:47 | disposition home or self-care (01) | DRG 871 ==
LOC: ERS 13:06 → 2NO 16:30 → OBSVTOIN 04-11 19:39
PROVIDERS: ADMIT Internal Medicine; ATTEND Hospitalist
PROC: 5A1D70Z Performance of Urinary Filtration, Intermittent, Less than 6 Hours Per Day (ICD-10-PCS; 2022-04-11)
PROC: 30233N1 Transfusion of Nonautologous Red Blood Cells into Peripheral Vein, Percutaneous Approach (ICD-10-PCS; principal; 2022-04-12)
PROC: 3E03329 Introduction of Other Anti-infective into Peripheral Vein, Percutaneous Approach (ICD-10-PCS; 2022-04-12)
DX: A41.81 Sepsis due to Enterococcus (principal); J12.82 Pneumonia due to coronavirus disease 2019; U07.1 COVID-19; N18.6 End stage renal disease; I12.0 Hypertensive chronic kidney disease with stage 5 chronic kidney disease or end stage renal disease; I24.8 Other forms of acute ischemic heart disease; N39.0 Urinary tract infection, site not specified; D62 Acute posthemorrhagic anemia; G40.209 Localization-related (focal) (partial) symptomatic epilepsy and epileptic syndromes with complex partial seizures, not intractable, without status epilepticus; E46 Unspecified protein-calorie malnutrition; Z68.1 Body mass index [BMI] 19.9 or less, adult; E78.5 Hyperlipidemia, unspecified; F32.A Depression, unspecified; D63.1 Anemia in chronic kidney disease; R19.7 Diarrhea, unspecified; B95.2 Enterococcus as the cause of diseases classified elsewhere; Z99.2 Dependence on renal dialysis; Z98.890 Other specified postprocedural states; Z93.1 Gastrostomy status; Z79.899 Other long term (current) drug therapy
CPT/HCPCS: 36415; 36430; 71045; 80048; 80053; 81001; 82274; 82553; 82728; 83540; 83605; 83630; 83735; 84484; 85025; 85046; 86140; 86704; 86850; 86900; 86901; 87015; 87040; 87076; 87077; 87086; 87149; 87186; 87206; 87340; 87505; 87798; 93005; 96374; G0378; J1644; J2700; J3370; J3490; P9016; Q5105; U0002

== ENCOUNTER 2022-10-30 09:46 | Inpatient (IN) | payer MEDICARE ==
[~2022-10-30 09:46] MED LIST changes: -Bupivacaine HCl 0.5%/Epinephrine 1:200,000/PF 30 ml Vial ONE; +Heparin 10,000 UNITS/ 10 ML VIAL ONE
[2022-10-30 10:31] LABS: #Eosinphils 0.1 thou/uL (0.0-0.7); #Lymphocytes 0.9 thou/uL (1.20-3.40); #Monocytes 0.4 thou/uL (0.11-0.59); #Neutrophils 5.6 thou/uL (1.40-6.50); %Basophils 0.5 % (0.0-1.0); %Lymphocytes 13.1 % (21.0-51.0); %Monocytes 6.1 % (0.0-10.0); %Neutrophils 78.3 % (42.0-75.0); Hemoglobin 5.7 g/dL (14.0-18.0); Mean Corpuscular HGB CONC 30.8 g/dL (32.0-36.0); Mean Corpuscular Hemoglobin 26.7 pg (27.0-31.0); Mean Corpuscular Volume 86.8 fl (78.0-98.0); Mean Platelet Volume 8.9 fL (7.4-10.4); Platelet Count 156 10x3/uL (130-400); RBC Distribution Width 17.6 % (11.5-14.5); Red Blood Cell (RBC) Count 2.15 mill/uL (4.70-6.10); White Blood Cell (WBC) Count 7.2 10x3/uL (4.8-10.8)
[2022-10-30 10:43] LABS: ALT (SGPT) 7 U/L (8-55); AST (SGOT) 15 U/L (5-34); Albumin 2.9 g/dL (3.5-5.0); Alkaline Phosphatase 57 U/L (40-110); Anion Gap 18 mmol/L (10-20); BUN (Urea Nitrogen) 30 mg/dL (8.4-25.7); Bilirubin, Total 1.1 mg/dL (0.2-1.2); Calc. Creatinine Clearance 0 mL/min (70-130); Calcium 8.5 mg/dL (7.8-10.44); Carbon Dioxide 22 mmol/L (22-29); Chloride 96 mmol/L (98-107); Estimated GFR 6; Globulin 4.6 g/dL (2.4-3.5); Glucose 80 mg/dL (70-105); Protein, Total 7.5 g/dL (6.0-8.3); Sodium 133 mmol/L (136-145)
[2022-10-30 11:01] LABS: Potassium 2.6 mmol/L (3.5-5.1)
[2022-10-30 11:24] LABS: INR-International Normal Ratio 1.1; PTT 35.5 sec (22.9-36.1); Prothrombin Time 14.5 sec (12.0-14.7)
[2022-10-30 11:43] LABS: Iron 33 ug/dL (65-175); Iron Binding Capacity, Total 128 mcg/dL (261-462)
[2022-10-30] MEDS ORDERED: Ondansetron PF 4 MG/2 ML Vial IVP PRN (12:34)
[2022-10-30] MEDS ORDERED: HYDROcodone/Acetaminophen 5/325 mg Tablet PO PRN (12:34)
[2022-10-30] MEDS ORDERED: Acetaminophen 650 MG Suppository PR PRN (12:34)
[2022-10-30 13:08] LABS: Phosphorus 2.3 mg/dL (2.3-4.7)
[2022-10-30 13:34] LABS: Hemoglobin 5.2 g/dL (14.0-18.0)
[2022-10-30 13:45] LABS: Potassium 2.9 mmol/L (3.5-5.1)
[2022-10-30 14:04] LABS: HBSAg Index 0.23 S/CO (0-0.99); Hep B Surf Ag Non-Reactive S/CO (NonReactive)
[2022-10-30 16:13] LABS: Hep B Surf AB Non-Reactive (NonReactive)
[2022-10-30] MEDS: Sevelamer Carbonate 800 MG TAB PO SCH (16:32)
[2022-10-30] MEDS: Baclofen 10 MG TAB PO SCH ×2 (16:32→20:06)
[2022-10-30] MEDS ORDERED: GoLYTELY 4,000 ml Bottle PO SCH (17:00)
[2022-10-30] MEDS: Phenytoin Extended Release 100 MG CAP PO SCH (20:06)
[2022-10-30] MEDS: Atorvastatin Calcium 10 MG TAB PO SCH (20:06)
[2022-10-30] MEDS: levETIRAcetam 500 MG TAB PO SCH (20:06)
[2022-10-30] MEDS: Pantoprazole 40 MG VIAL IVP SCH (20:07)
[2022-10-31 04:57] LABS: Hemoglobin 8.2 g/dL (14.0-18.0)
[2022-10-31 05:03] LABS: #Eosinphils 0.1 thou/uL (0.0-0.7); #Lymphocytes 1.3 thou/uL (1.20-3.40); #Monocytes 0.4 thou/uL (0.11-0.59); #Neutrophils 3.3 thou/uL (1.40-6.50); %Basophils 0.3 % (0.0-1.0); %Eosinophils 2.6 % (0.0-10.0); %Lymphocytes 25.7 % (21.0-51.0); %Monocytes 7.1 % (0.0-10.0); %Neutrophils 64.3 % (42.0-75.0); Hemoglobin 8.4 g/dL (14.0-18.0); Mean Corpuscular HGB CONC 32.3 g/dL (32.0-36.0); Mean Corpuscular Hemoglobin 27.9 pg (27.0-31.0); Mean Corpuscular Volume 86.2 fl (78.0-98.0); Mean Platelet Volume 9.3 fL (7.4-10.4); Platelet Count 141 10x3/uL (130-400); RBC Distribution Width 16.3 % (11.5-14.5); Red Blood Cell (RBC) Count 3.01 mill/uL (4.70-6.10); White Blood Cell (WBC) Count 5.2 10x3/uL (4.8-10.8)
[2022-10-31 05:20] LABS: ALT (SGPT) 7 U/L (8-55); AST (SGOT) 18 U/L (5-34); Albumin 2.6 g/dL (3.5-5.0); Alkaline Phosphatase 55 U/L (40-110); Anion Gap 12 mmol/L (10-20); BUN (Urea Nitrogen) 20 mg/dL (8.4-25.7); Calc. Creatinine Clearance 11 mL/min (70-130); Calcium 8.2 mg/dL (7.8-10.44); Carbon Dioxide 28 mmol/L (22-29); Chloride 97 mmol/L (98-107); Estimated GFR 9; Globulin 4.2 g/dL (2.4-3.5); Glucose 76 mg/dL (70-105); Potassium 3.2 mmol/L (3.5-5.1); Protein, Total 6.8 g/dL (6.0-8.3); Sodium 134 mmol/L (136-145)
[2022-10-31] MEDS: Sevelamer Carbonate 800 MG TAB PO SCH ×3 (08:42→16:14)
[2022-10-31] MEDS: levETIRAcetam 500 MG TAB PO SCH ×2 (08:43→21:28)
[2022-10-31] MEDS: Pantoprazole 40 MG VIAL IVP SCH ×2 (08:43→21:28)
[2022-10-31] MEDS: FLUoxetine HCl 20 MG CAP PO SCH (08:43)
[2022-10-31] MEDS: Baclofen 10 MG TAB PO SCH ×3 (08:43→21:28)
[2022-10-31] MEDS ORDERED: PROPOFOL 200 MG/20 ML VIAL ONE (10:15)
[2022-10-31] MEDS ORDERED: Lidocaine 1% PF 5 ML VIAL ONE (10:15)
[2022-10-31] MEDS ORDERED: Iopamidol-370 76% 500 ML MDV (1 ML CHARGE) ONE (11:35)
[2022-10-31] MEDS ORDERED: Ondansetron HCl/PF 4 MG/2 ML Vial IVP PRN (11:39)
[2022-10-31 14:25] LABS: Hemoglobin 8.9 g/dL (14.0-18.0)
[2022-10-31] MEDS: Phenytoin Extended Release 100 MG CAP PO SCH (21:28)
[2022-10-31] MEDS: Atorvastatin Calcium 10 MG TAB PO SCH (21:28)
[2022-10-31] MEDS ORDERED: Midazolam HCl 2 mg/2 ml Vial ONE (22:11)
[2022-10-31 22:23] LABS: #Eosinphils 0.1 thou/uL (0.0-0.7); #Lymphocytes 1.3 thou/uL (1.20-3.40); #Monocytes 0.3 thou/uL (0.11-0.59); #Neutrophils 3.1 thou/uL (1.40-6.50); %Basophils 0.4 % (0.0-1.0); %Eosinophils 2.1 % (0.0-10.0); %Lymphocytes 27.6 % (21.0-51.0); %Monocytes 6.6 % (0.0-10.0); %Neutrophils 63.4 % (42.0-75.0); Hemoglobin 8.2 g/dL (14.0-18.0); Mean Corpuscular HGB CONC 34.1 g/dL (32.0-36.0); Mean Corpuscular Hemoglobin 29.3 pg (27.0-31.0); Mean Corpuscular Volume 85.9 fl (78.0-98.0); Platelet Count 127 10x3/uL (130-400); RBC Distribution Width 16.1 % (11.5-14.5); White Blood Cell (WBC) Count 4.8 10x3/uL (4.8-10.8)
[2022-10-31] MEDS ORDERED: Midazolam HCl 2 mg/2 ml Vial SLOW IVP SCH (22:30)
[2022-10-31 22:38] LABS: Lactic Acid 1.1 mmol/L (0.5-2.2)
[2022-10-31 22:49] LABS: ALT (SGPT) Less than 7 U/L (8-55); AST (SGOT) 19 U/L (5-34); Albumin 2.5 g/dL (3.5-5.0); Alkaline Phosphatase 59 U/L (40-110); Anion Gap 14 mmol/L (10-20); BUN (Urea Nitrogen) 29 mg/dL (8.4-25.7); Bilirubin, Total 1.3 mg/dL (0.2-1.2); Calc. Creatinine Clearance 9 mL/min (70-130); Carbon Dioxide 26 mmol/L (22-29); Chloride 97 mmol/L (98-107); Estimated GFR 7; Globulin 4.2 g/dL (2.4-3.5); Glucose 83 mg/dL (70-105); Potassium 3.1 mmol/L (3.5-5.1); Protein, Total 6.7 g/dL (6.0-8.3); Sodium 134 mmol/L (136-145)
[2022-11-01 00:54] LABS: Magnesium 1.9 mg/dL (1.6-2.6)
[2022-11-01 00:58] LABS: Troponin I 0.022 ng/mL (< 0.028)
[2022-11-01 06:14] LABS: Hypochromia SLIGHT = 6-15 cells (100X) (0-5/hpf); Lymphocytes 19 % (21-51); MDiff Complete? YES; Monocytes 4 % (0-10); Neutrophil 77 % (42-75); Platelet Morphology Comment Appears Adequate; Polychromasia SLIGHT = 2-3 cells (100X) (0-2/hpf); Target Cells SLIGHT = 2-5 cells (100X) (0-1/hpf)
[2022-11-01 06:15] LABS: Hemoglobin 7.1 g/dL (14.0-18.0); Mean Corpuscular HGB CONC 31.2 g/dL (32.0-36.0); Mean Corpuscular Hemoglobin 26.6 pg (27.0-31.0); Mean Corpuscular Volume 85.5 fl (78.0-98.0); Mean Platelet Volume 5.9 fL (7.4-10.4); Platelet Count 155 10x3/uL (130-400); RBC Distribution Width 15.9 % (11.5-14.5); Red Blood Cell (RBC) Count 2.65 mill/uL (4.70-6.10)
[2022-11-01 06:18] LABS: ALT (SGPT) 9 U/L (8-55); AST (SGOT) 24 U/L (5-34); Albumin 2.5 g/dL (3.5-5.0); Alkaline Phosphatase 54 U/L (40-110); Anion Gap 17 mmol/L (10-20); BUN (Urea Nitrogen) 33 mg/dL (8.4-25.7); Bilirubin, Total 1.4 mg/dL (0.2-1.2); Calc. Creatinine Clearance 8 mL/min (70-130); Calcium 8.4 mg/dL (7.8-10.44); Carbon Dioxide 22 mmol/L (22-29); Chloride 97 mmol/L (98-107); Estimated GFR 6; Globulin 4.6 g/dL (2.4-3.5); Glucose 74 mg/dL (70-105); Potassium 3.7 mmol/L (3.5-5.1); Protein, Total 7.1 g/dL (6.0-8.3); Sodium 132 mmol/L (136-145)
[2022-11-01] MEDS ORDERED: levETIRAcetam in NS 500 MG in Premix Bag 1 BAG IVPB SCH ×2 (09:45→21:00)
[2022-11-01] MEDS ORDERED: levETIRAcetam 500 MG/5 ML VIAL SLOW IVP SCH (10:00)
[2022-11-01] MEDS: Sevelamer Carbonate 800 MG TAB PO SCH ×3 (11:41→17:58)
[2022-11-01] MEDS: Pantoprazole 40 MG VIAL IVP SCH ×2 (11:42→22:03)
[2022-11-01] MEDS: Baclofen 10 MG TAB PO SCH ×3 (11:42→21:35)
[2022-11-01] MEDS: FLUoxetine HCl 20 MG CAP PO SCH (11:42)
[2022-11-01] MEDS: levETIRAcetam 500 MG TAB PO SCH (16:48)
[2022-11-01] MEDS: Atorvastatin Calcium 10 MG TAB PO SCH (21:35)
[2022-11-01] MEDS: levETIRAcetam 500 MG/5 ML VIAL SLOW IVP SCH (22:04)
[2022-11-02 05:17] LABS: #Eosinphils 0.1 thou/uL (0.0-0.7); #Lymphocytes 0.9 thou/uL (1.20-3.40); #Monocytes 0.6 thou/uL (0.11-0.59); #Neutrophils 9.1 thou/uL (1.40-6.50); %Basophils 0.1 % (0.0-1.0); %Eosinophils 0.7 % (0.0-10.0); %Lymphocytes 8.7 % (21.0-51.0); %Monocytes 5.5 % (0.0-10.0); Hemoglobin 8.6 g/dL (14.0-18.0); Mean Corpuscular Hemoglobin 29.2 pg (27.0-31.0); Mean Corpuscular Volume 85.7 fl (78.0-98.0); Mean Platelet Volume 9.2 fL (7.4-10.4); Platelet Count 153 10x3/uL (130-400); RBC Distribution Width 15.9 % (11.5-14.5); Red Blood Cell (RBC) Count 2.95 mill/uL (4.70-6.10); White Blood Cell (WBC) Count 10.7 10x3/uL (4.8-10.8)
[2022-11-02 05:48] LABS: ALT (SGPT) 7 U/L (8-55); AST (SGOT) 20 U/L (5-34); Albumin 2.6 g/dL (3.5-5.0); Alkaline Phosphatase 61 U/L (40-110); Anion Gap 19 mmol/L (10-20); BUN (Urea Nitrogen) 41 mg/dL (8.4-25.7); Bilirubin, Total 1.1 mg/dL (0.2-1.2); Calc. Creatinine Clearance 6 mL/min (70-130); Calcium 8.6 mg/dL (7.8-10.44); Carbon Dioxide 21 mmol/L (22-29); Chloride 98 mmol/L (98-107); Estimated GFR 5; Globulin 4.5 g/dL (2.4-3.5); Glucose 77 mg/dL (70-105); Potassium 3.6 mmol/L (3.5-5.1); Protein, Total 7.1 g/dL (6.0-8.3); Sodium 134 mmol/L (136-145)
[2022-11-02] MEDS: Sevelamer Carbonate 800 MG TAB PO SCH ×3 (07:53→17:07)
[2022-11-02] MEDS: Baclofen 10 MG TAB PO SCH ×3 (07:53→20:43)
[2022-11-02] MEDS: FLUoxetine HCl 20 MG CAP PO SCH (07:54)
[2022-11-02] MEDS: Fosphenytoin Sodium 200 MG in Sodium Chloride 0.9% 50 ML IVPB SCH ×2 (11:54→21:05)
[2022-11-02 11:58] VITALS: BMI 18.1
[2022-11-02] MEDS: levETIRAcetam 500 MG/5 ML VIAL SLOW IVP SCH ×2 (11:59→20:42)
[2022-11-02] MEDS: Pantoprazole 40 MG VIAL IVP SCH ×2 (11:59→20:42)
[2022-11-02] MEDS ORDERED: Lorazepam 2 MG/ML VIAL SLOW IVP SCH (12:30)
[2022-11-02] MEDS: Atorvastatin Calcium 10 MG TAB PO SCH (20:43)
[2022-11-03 05:24] LABS: #Basophils 0.1 thou/uL (0.0-0.2); #Eosinphils 0.1 thou/uL (0.0-0.7); #Lymphocytes 0.9 thou/uL (1.20-3.40); #Monocytes 0.4 thou/uL (0.11-0.59); #Neutrophils 5.9 thou/uL (1.40-6.50); %Basophils 0.7 % (0.0-1.0); %Eosinophils 1.8 % (0.0-10.0); %Lymphocytes 12.7 % (21.0-51.0); %Monocytes 5.7 % (0.0-10.0); %Neutrophils 79.2 % (42.0-75.0); Hemoglobin 7.8 g/dL (14.0-18.0); Mean Corpuscular HGB CONC 33.1 g/dL (32.0-36.0); Mean Corpuscular Hemoglobin 28.2 pg (27.0-31.0); Mean Corpuscular Volume 85.2 fl (78.0-98.0); Mean Platelet Volume 9.6 fL (7.4-10.4); Platelet Count 169 10x3/uL (130-400); RBC Distribution Width 15.9 % (11.5-14.5); Red Blood Cell (RBC) Count 2.78 mill/uL (4.70-6.10); White Blood Cell (WBC) Count 7.4 10x3/uL (4.8-10.8)
[2022-11-03 05:39] LABS: ALT (SGPT) 7 U/L (8-55); AST (SGOT) 22 U/L (5-34); Albumin 2.5 g/dL (3.5-5.0); Alkaline Phosphatase 58 U/L (40-110); Anion Gap 16 mmol/L (10-20); BUN (Urea Nitrogen) 52 mg/dL (8.4-25.7); Bilirubin, Total 0.8 mg/dL (0.2-1.2); Calc. Creatinine Clearance 5 mL/min (70-130); Calcium 8.6 mg/dL (7.8-10.44); Carbon Dioxide 24 mmol/L (22-29); Chloride 98 mmol/L (98-107); Estimated GFR 4; Globulin 4.3 g/dL (2.4-3.5); Glucose 119 mg/dL (70-105); Potassium 3.7 mmol/L (3.5-5.1); Protein, Total 6.8 g/dL (6.0-8.3); Sodium 134 mmol/L (136-145)
[2022-11-03] MEDS: Sevelamer Carbonate 800 MG TAB PO SCH ×3 (08:25→16:09)
[2022-11-03] MEDS: FLUoxetine HCl 20 MG CAP PO SCH (08:26)
[2022-11-03] MEDS: Fosphenytoin Sodium 200 MG in Sodium Chloride 0.9% 50 ML IVPB SCH ×2 (08:26→22:21)
[2022-11-03] MEDS: levETIRAcetam 500 MG/5 ML VIAL SLOW IVP SCH ×2 (08:26→21:19)
[2022-11-03] MEDS: Baclofen 10 MG TAB PO SCH ×3 (08:26→21:19)
[2022-11-03] MEDS: Pantoprazole 40 MG VIAL IVP SCH ×2 (08:27→21:19)
[2022-11-03] MEDS ORDERED: Heparin 10,000 UNITS/ 10 ML VIAL ONE (08:32)
[2022-11-03] MEDS ORDERED: levETIRAcetam 500 MG/5 ML VIAL SLOW IVP SCH (15:00)
[2022-11-03] MEDS ORDERED: levETIRAcetam in NS 500 MG in Premix Bag 1 BAG IVPB SCH (15:00)
[2022-11-03] MEDS ORDERED: Aspirin 300 MG Suppository PR SCH (15:00)
[2022-11-03 16:14] LABS: A/G Ratio 0.7 (0.7-1.7); Albumin 2.6 g/dL (2.9-4.4); Alpha 1 0.4 g/dL (0.0-0.4); Alpha 2 0.5 g/dL (0.4-1.0); Beta 0.8 g/dL (0.7-1.3); Gamma 2.3 g/dL (0.4-1.8); M-Spike 0.8 g/dL (Not Observed); Protein Electrophoresis Intrp Note: (.)
[2022-11-03] MEDS: Atorvastatin Calcium 10 MG TAB PO SCH (21:19)
[2022-11-04 04:49] LABS: #Eosinphils 0.1 thou/uL (0.0-0.7); #Lymphocytes 1.1 thou/uL (1.20-3.40); #Monocytes 0.4 thou/uL (0.11-0.59); %Basophils 0.6 % (0.0-1.0); %Eosinophils 1.8 % (0.0-10.0); %Lymphocytes 16.6 % (21.0-51.0); %Monocytes 5.7 % (0.0-10.0); %Neutrophils 75.3 % (42.0-75.0); Hemoglobin 7.4 g/dL (14.0-18.0); Mean Corpuscular HGB CONC 31.8 g/dL (32.0-36.0); Mean Corpuscular Hemoglobin 27.8 pg (27.0-31.0); Mean Corpuscular Volume 87.5 fl (78.0-98.0); Mean Platelet Volume 9.3 fL (7.4-10.4); Platelet Count 169 10x3/uL (130-400); RBC Distribution Width 15.7 % (11.5-14.5); Red Blood Cell (RBC) Count 2.64 mill/uL (4.70-6.10); White Blood Cell (WBC) Count 6.6 10x3/uL (4.8-10.8)
[2022-11-04 05:15] LABS: ALT (SGPT) 9 U/L (8-55); AST (SGOT) 21 U/L (5-34); Albumin 2.5 g/dL (3.5-5.0); Alkaline Phosphatase 60 U/L (40-110); Anion Gap 15 mmol/L (10-20); BUN (Urea Nitrogen) 25 mg/dL (8.4-25.7); Bilirubin, Total 0.6 mg/dL (0.2-1.2); Calc. Creatinine Clearance 9 mL/min (70-130); Calcium 8.8 mg/dL (7.8-10.44); Carbon Dioxide 26 mmol/L (22-29); Chloride 99 mmol/L (98-107); Estimated GFR 7; Globulin 4.4 g/dL (2.4-3.5); Glucose 98 mg/dL (70-105); Potassium 3.8 mmol/L (3.5-5.1); Protein, Total 6.9 g/dL (6.0-8.3); Sodium 136 mmol/L (136-145)
[2022-11-04] MEDS: Baclofen 10 MG TAB PO SCH ×3 (10:27→20:44)
[2022-11-04] MEDS: FLUoxetine HCl 20 MG CAP PO SCH (10:27)
[2022-11-04] MEDS: Sevelamer Carbonate 800 MG TAB PO SCH ×3 (10:27→17:32)
[2022-11-04] MEDS: Aspirin 300 MG Suppository PR SCH (10:28)
[2022-11-04] MEDS: Fosphenytoin Sodium 200 MG in Sodium Chloride 0.9% 50 ML IVPB SCH ×2 (10:28→22:02)
[2022-11-04] MEDS: Pantoprazole 40 MG VIAL IVP SCH ×2 (10:29→20:44)
[2022-11-04] MEDS: levETIRAcetam 500 MG/5 ML VIAL SLOW IVP SCH ×2 (10:29→20:44)
[2022-11-04] MEDS: Atorvastatin Calcium 40 MG TAB PER TUBE SCH (20:44)
[2022-11-05 04:51] LABS: #Eosinphils 0.1 thou/uL (0.0-0.7); #Lymphocytes 1.2 thou/uL (1.20-3.40); #Monocytes 0.5 thou/uL (0.11-0.59); #Neutrophils 7.2 thou/uL (1.40-6.50); %Basophils 0.1 % (0.0-1.0); %Eosinophils 1.4 % (0.0-10.0); %Lymphocytes 12.9 % (21.0-51.0); %Monocytes 5.7 % (0.0-10.0); %Neutrophils 79.8 % (42.0-75.0); Hemoglobin 7.6 g/dL (14.0-18.0); Mean Corpuscular HGB CONC 32.1 g/dL (32.0-36.0); Mean Corpuscular Hemoglobin 27.8 pg (27.0-31.0); Mean Corpuscular Volume 86.6 fl (78.0-98.0); Mean Platelet Volume 8.9 fL (7.4-10.4); Platelet Count 181 10x3/uL (130-400); RBC Distribution Width 15.8 % (11.5-14.5); Red Blood Cell (RBC) Count 2.72 mill/uL (4.70-6.10)
[2022-11-05 05:06] LABS: ALT (SGPT) 7 U/L (8-55); AST (SGOT) 20 U/L (5-34); Albumin 2.4 g/dL (3.5-5.0); Alkaline Phosphatase 62 U/L (40-110); Anion Gap 14 mmol/L (10-20); BUN (Urea Nitrogen) 37 mg/dL (8.4-25.7); Bilirubin, Total 0.5 mg/dL (0.2-1.2); Calc. Creatinine Clearance 7 mL/min (70-130); Calcium 8.9 mg/dL (7.8-10.44); Carbon Dioxide 29 mmol/L (22-29); Chloride 97 mmol/L (98-107); Estimated GFR 5; Globulin 4.6 g/dL (2.4-3.5); Glucose 97 mg/dL (70-105); Potassium 3.7 mmol/L (3.5-5.1); Sodium 136 mmol/L (136-145)
[2022-11-05] MEDS: levETIRAcetam 500 MG/5 ML VIAL SLOW IVP SCH ×2 (10:04→21:05)
[2022-11-05] MEDS: Fosphenytoin Sodium 200 MG in Sodium Chloride 0.9% 50 ML IVPB SCH ×2 (10:04→21:03)
[2022-11-05] MEDS: Pantoprazole 40 MG VIAL IVP SCH ×2 (10:04→21:05)
[2022-11-05] MEDS: Baclofen 10 MG TAB PO SCH ×3 (10:04→21:04)
[2022-11-05] MEDS: FLUoxetine HCl 20 MG CAP PO SCH (10:05)
[2022-11-05] MEDS: Aspirin 300 MG Suppository PR SCH (10:05)
[2022-11-05] MEDS: Sevelamer Carbonate 800 MG TAB PO SCH ×3 (10:05→17:01)
[2022-11-05] MEDS ORDERED: Heparin 10,000 UNITS/ 10 ML VIAL ONE (11:22)
[2022-11-05] MEDS ORDERED: levETIRAcetam 500 MG/5 ML VIAL SLOW IVP SCH (14:45)
[2022-11-05 15:53] LABS: Actual Bicarbonate (HCO3a) 30.5 mEq/L (22-28); Base Excess (BEa) 5.4 mEq/L (-2.0 to +3.0); CO2 Tension 47.6 mmHg (35.0-45.0); Calcium, Ionized (arterial) 1.16 mmol/L (1.12-1.30); Carboxyhemoglobin (COHb) 1.7 gm% (0.0-3.0); Hemoglobin (Hb) 9.3 g/dL (14.0-18.0); O2 Tension (PaO2), arterial 70.2 mmHg (80.0-100.0); Potassium - ABG Lab 3.54 mmol/L (3.70-5.30); pH, Arterial 7.424 (7.35-7.45)
[2022-11-05 15:54] LABS: Puncture Site LRA
[2022-11-05] MEDS: Atorvastatin Calcium 40 MG TAB PER TUBE SCH (21:04)
[2022-11-06 04:22] LABS: #Basophils 0.1 thou/uL (0.0-0.2); #Eosinphils 0.3 thou/uL (0.0-0.7); #Lymphocytes 1.5 thou/uL (1.20-3.40); #Monocytes 1.5 thou/uL (0.11-0.59); #Neutrophils 6.6 thou/uL (1.40-6.50); %Basophils 0.8 % (0.0-1.0); %Eosinophils 2.6 % (0.0-10.0); %Lymphocytes 15.5 % (21.0-51.0); %Monocytes 14.8 % (0.0-10.0); %Neutrophils 66.3 % (42.0-75.0); Hemoglobin 8.7 g/dL (14.0-18.0); Mean Corpuscular HGB CONC 30.9 g/dL (32.0-36.0); Mean Corpuscular Hemoglobin 27.1 pg (27.0-31.0); Mean Corpuscular Volume 87.7 fl (78.0-98.0); Mean Platelet Volume 9.6 fL (7.4-10.4); Platelet Count 197 10x3/uL (130-400); RBC Distribution Width 16.1 % (11.5-14.5); Red Blood Cell (RBC) Count 3.21 mill/uL (4.70-6.10); White Blood Cell (WBC) Count 9.9 10x3/uL (4.8-10.8)
[2022-11-06 04:45] LABS: Dilantin 9.2 ug/mL (10.0-20.0)
[2022-11-06 04:50] LABS: ALT (SGPT) 7 U/L (8-55); AST (SGOT) 22 U/L (5-34); Albumin 2.7 g/dL (3.5-5.0); Alkaline Phosphatase 70 U/L (40-110); Anion Gap 16 mmol/L (10-20); BUN (Urea Nitrogen) 22 mg/dL (8.4-25.7); Bilirubin, Total 0.5 mg/dL (0.2-1.2); Calc. Creatinine Clearance 10 mL/min (70-130); Calcium 8.8 mg/dL (7.8-10.44); Carbon Dioxide 23 mmol/L (22-29); Chloride 99 mmol/L (98-107); Estimated GFR 8; Globulin 4.9 g/dL (2.4-3.5); Glucose 98 mg/dL (70-105); Potassium 3.8 mmol/L (3.5-5.1); Protein, Total 7.6 g/dL (6.0-8.3); Sodium 134 mmol/L (136-145)
[2022-11-06] MEDS: Fosphenytoin Sodium 200 MG in Sodium Chloride 0.9% 50 ML IVPB SCH ×2 (09:36→23:22)
[2022-11-06] MEDS: Sevelamer Carbonate 800 MG TAB PO SCH ×3 (09:38→18:23)
[2022-11-06] MEDS: Baclofen 10 MG TAB PO SCH ×3 (09:38→22:17)
[2022-11-06] MEDS: levETIRAcetam 500 MG/5 ML VIAL SLOW IVP SCH ×2 (09:38→22:06)
[2022-11-06] MEDS: FLUoxetine HCl 20 MG CAP PO SCH (09:38)
[2022-11-06] MEDS: Pantoprazole 40 MG VIAL IVP SCH ×2 (10:21→22:08)
[2022-11-06] MEDS ORDERED: Aspirin Chewable 81 MG TAB PO SCH (10:45)
[2022-11-06] MEDS: Aspirin 300 MG Suppository PR SCH (11:46)
[2022-11-06] MEDS ORDERED: Lacosamide 50 MG in Sodium Chloride 0.9% 50 ML IVPB PRN (17:36)
[2022-11-06] MEDS ORDERED: levETIRAcetam in NS 500 MG in Premix Bag 1 BAG IVPB SCH (21:00)
[2022-11-06] MEDS ORDERED: levETIRAcetam 500 MG/5 ML VIAL SLOW IVP SCH (21:00)
[2022-11-06] MEDS: Atorvastatin Calcium 40 MG TAB PER TUBE SCH (22:08)
[2022-11-06] MEDS: Lacosamide 100 MG in Sodium Chloride 0.9% 50 ML IVPB SCH (22:09)
[2022-11-07 05:41] LABS: #Eosinphils 0.2 thou/uL (0.0-0.7); #Lymphocytes 1.3 thou/uL (1.20-3.40); #Monocytes 1.1 thou/uL (0.11-0.59); #Neutrophils 6.4 thou/uL (1.40-6.50); %Basophils 0.4 % (0.0-1.0); %Eosinophils 2.7 % (0.0-10.0); %Lymphocytes 14.7 % (21.0-51.0); %Neutrophils 70.2 % (42.0-75.0); Hemoglobin 8.5 g/dL (14.0-18.0); Mean Corpuscular HGB CONC 31.3 g/dL (32.0-36.0); Mean Corpuscular Hemoglobin 27.5 pg (27.0-31.0); Mean Corpuscular Volume 87.8 fl (78.0-98.0); Mean Platelet Volume 9.1 fL (7.4-10.4); Platelet Count 250 10x3/uL (130-400); RBC Distribution Width 16.2 % (11.5-14.5); White Blood Cell (WBC) Count 9.1 10x3/uL (4.8-10.8)
[2022-11-07] MEDS ORDERED: Heparin 10,000 UNITS/ 10 ML VIAL ONE (08:35)
[2022-11-07 09:48] LABS: ALT (SGPT) 10 U/L (8-55); AST (SGOT) 27 U/L (5-34); Albumin 2.4 g/dL (3.5-5.0); Alkaline Phosphatase 64 U/L (40-110); Anion Gap 18 mmol/L (10-20); BUN (Urea Nitrogen) 41 mg/dL (8.4-25.7); Bilirubin, Total 0.4 mg/dL (0.2-1.2); Calc. Creatinine Clearance 8 mL/min (70-130); Calcium 8.9 mg/dL (7.8-10.44); Carbon Dioxide 24 mmol/L (22-29); Chloride 95 mmol/L (98-107); Estimated GFR 6; Globulin 5.1 g/dL (2.4-3.5); Glucose 111 mg/dL (70-105); Potassium 4.5 mmol/L (3.5-5.1); Protein, Total 7.5 g/dL (6.0-8.3); Sodium 132 mmol/L (136-145)
[2022-11-07] MEDS: Pantoprazole 40 MG VIAL IVP SCH ×2 (10:39→23:38)
[2022-11-07] MEDS: levETIRAcetam 500 MG/5 ML VIAL SLOW IVP SCH ×2 (10:39→23:37)
[2022-11-07] MEDS: Aspirin Chewable 81 MG TAB PO SCH (10:39)
[2022-11-07] MEDS: Sevelamer Carbonate 800 MG TAB PO SCH ×3 (10:40→17:19)
[2022-11-07] MEDS: FLUoxetine HCl 20 MG CAP PO SCH (10:40)
[2022-11-07] MEDS: Baclofen 10 MG TAB PO SCH ×3 (10:40→23:37)
[2022-11-07] MEDS: Fosphenytoin Sodium 200 MG in Sodium Chloride 0.9% 50 ML IVPB SCH ×2 (10:57→23:38)
[2022-11-07] MEDS: EPOETIN ALFA-EPBX (ESRD) 2,000 UNITS/ML VIAL SC SCH (10:57)
[2022-11-07] MEDS: Lacosamide 100 MG in Sodium Chloride 0.9% 50 ML IVPB SCH ×2 (12:03→23:10)
[2022-11-07] MEDS ORDERED: levETIRAcetam in NS 500 MG in Premix Bag 1 BAG IVPB SCH (17:15)
[2022-11-07] MEDS ORDERED: levETIRAcetam 500 MG/5 ML VIAL SLOW IVP SCH (17:30)
[2022-11-07] MEDS: Atorvastatin Calcium 40 MG TAB PER TUBE SCH (23:37)
[2022-11-08 05:42] LABS: #Basophils 0.1 thou/uL (0.0-0.2); #Eosinphils 0.2 thou/uL (0.0-0.7); #Lymphocytes 1.4 thou/uL (1.20-3.40); #Monocytes 0.6 thou/uL (0.11-0.59); #Neutrophils 4.1 thou/uL (1.40-6.50); %Basophils 0.9 % (0.0-1.0); %Eosinophils 2.4 % (0.0-10.0); %Monocytes 8.9 % (0.0-10.0); %Neutrophils 64.8 % (42.0-75.0); Hemoglobin 8.2 g/dL (14.0-18.0); Mean Corpuscular HGB CONC 32.1 g/dL (32.0-36.0); Mean Corpuscular Hemoglobin 27.5 pg (27.0-31.0); Mean Corpuscular Volume 85.8 fl (78.0-98.0); Mean Platelet Volume 8.7 fL (7.4-10.4); Platelet Count 254 10x3/uL (130-400); RBC Distribution Width 16.1 % (11.5-14.5); Red Blood Cell (RBC) Count 2.96 mill/uL (4.70-6.10); White Blood Cell (WBC) Count 6.3 10x3/uL (4.8-10.8)
[2022-11-08 06:01] LABS: ALT (SGPT) 7 U/L (8-55); AST (SGOT) 21 U/L (5-34); Albumin 2.7 g/dL (3.5-5.0); Alkaline Phosphatase 67 U/L (40-110); Anion Gap 12 mmol/L (10-20); BUN (Urea Nitrogen) 21 mg/dL (8.4-25.7); Bilirubin, Total 0.4 mg/dL (0.2-1.2); Calc. Creatinine Clearance 12 mL/min (70-130); Calcium 9.2 mg/dL (7.8-10.44); Carbon Dioxide 30 mmol/L (22-29); Chloride 96 mmol/L (98-107); Estimated GFR 10; Globulin 5.4 g/dL (2.4-3.5); Glucose 97 mg/dL (70-105); Potassium 3.6 mmol/L (3.5-5.1); Protein, Total 8.1 g/dL (6.0-8.3); Sodium 134 mmol/L (136-145)
[2022-11-08] MEDS: Sevelamer Carbonate 800 MG TAB PO SCH ×4 (08:47→19:52)
[2022-11-08] MEDS: levETIRAcetam 500 MG/5 ML VIAL SLOW IVP SCH ×2 (08:48→21:27)
[2022-11-08] MEDS: Aspirin Chewable 81 MG TAB PO SCH (08:48)
[2022-11-08] MEDS: FLUoxetine HCl 20 MG CAP PO SCH (08:48)
[2022-11-08] MEDS: Fosphenytoin Sodium 200 MG in Sodium Chloride 0.9% 50 ML IVPB SCH ×2 (08:48→21:27)
[2022-11-08] MEDS: Baclofen 10 MG TAB PO SCH ×2 (08:48→16:19)
[2022-11-08] MEDS ORDERED: Potassium Chloride 20 MEQ TAB PO SCH (09:15)
[2022-11-08] MEDS: Lacosamide 100 MG in Sodium Chloride 0.9% 50 ML IVPB SCH (09:50)
[2022-11-08] MEDS ORDERED: Potassium Chloride 20 MEQ in Premix Bag 1 BAG IVPB SCH (10:30)
[2022-11-08] MEDS: Pantoprazole 40 MG VIAL IVP SCH ×2 (10:45→21:27)
[2022-11-08] MEDS ORDERED: Azithromycin 1,000 MG in Sodium Chloride 0.9% 500 ML IVPB SCH (16:00)
[2022-11-08] MEDS ORDERED: cefTRIAXone\\ROCEPHIN 2 GM in Sodium Chloride 0.9% 100 ML IVPB SCH (16:00)
[2022-11-08] MEDS ORDERED: Pancrelipase DR 12,000 1 CAP PO SCH (20:00)
[2022-11-08] MEDS ORDERED: Sodium Bicarbonate Tab 325 MG TAB PER TUBE SCH (20:00)
[2022-11-09] MEDS: Baclofen 10 MG TAB PO SCH ×4 (00:01→22:32)
[2022-11-09] MEDS: Lacosamide 100 MG in Sodium Chloride 0.9% 50 ML IVPB SCH ×3 (00:01→22:27)
[2022-11-09] MEDS: Atorvastatin Calcium 40 MG TAB PER TUBE SCH ×2 (00:01→22:31)
[2022-11-09 05:55] LABS: Hemoglobin 7.4 g/dL (14.0-18.0); Platelet Count 245 10x3/uL (130-400)
[2022-11-09 06:07] LABS: Anion Gap 16 mmol/L (10-20); BUN (Urea Nitrogen) 35 mg/dL (8.4-25.7); Calc. Creatinine Clearance 8 mL/min (70-130); Carbon Dioxide 22 mmol/L (22-29); Chloride 100 mmol/L (98-107); Estimated GFR 6; Glucose 80 mg/dL (70-105); Potassium 4.2 mmol/L (3.5-5.1); Sodium 134 mmol/L (136-145)
[2022-11-09] MEDS: Fosphenytoin Sodium 200 MG in Sodium Chloride 0.9% 50 ML IVPB SCH ×2 (08:23→22:53)
[2022-11-09] MEDS: levETIRAcetam 500 MG/5 ML VIAL SLOW IVP SCH ×2 (09:20→22:31)
[2022-11-09] MEDS: Aspirin Chewable 81 MG TAB PO SCH (09:21)
[2022-11-09] MEDS: FLUoxetine HCl 20 MG CAP PO SCH (09:21)
[2022-11-09] MEDS: Pantoprazole 40 MG VIAL IVP SCH ×2 (09:21→22:32)
[2022-11-09] MEDS: Sevelamer 2.4 GM PACKET PO SCH ×3 (09:22→22:31)
[2022-11-09] MEDS: Sevelamer Carbonate 800 MG TAB PO SCH (11:52)
[2022-11-09 13:46] LABS: Hemoglobin 7.3 g/dL (14.0-18.0)
[2022-11-10 05:03] LABS: #Eosinphils 0.2 thou/uL (0.0-0.7); #Lymphocytes 1.2 thou/uL (1.20-3.40); #Monocytes 0.6 thou/uL (0.11-0.59); #Neutrophils 3.4 thou/uL (1.40-6.50); %Basophils 0.5 % (0.0-1.0); %Eosinophils 3.5 % (0.0-10.0); %Lymphocytes 21.6 % (21.0-51.0); %Monocytes 11.7 % (0.0-10.0); %Neutrophils 62.6 % (42.0-75.0); Hemoglobin 7.7 g/dL (14.0-18.0); Mean Corpuscular HGB CONC 31.1 g/dL (32.0-36.0); Mean Corpuscular Hemoglobin 26.6 pg (27.0-31.0); Mean Corpuscular Volume 85.7 fl (78.0-98.0); Mean Platelet Volume 8.1 fL (7.4-10.4); Platelet Count 263 10x3/uL (130-400); RBC Distribution Width 15.6 % (11.5-14.5); Red Blood Cell (RBC) Count 2.88 mill/uL (4.70-6.10); White Blood Cell (WBC) Count 5.4 10x3/uL (4.8-10.8)
[2022-11-10 05:27] LABS: ALT (SGPT) 11 U/L (8-55); AST (SGOT) 27 U/L (5-34); Albumin 2.6 g/dL (3.5-5.0); Alkaline Phosphatase 64 U/L (40-110); Anion Gap 15 mmol/L (10-20); BUN (Urea Nitrogen) 50 mg/dL (8.4-25.7); Bilirubin, Total 0.3 mg/dL (0.2-1.2); Calc. Creatinine Clearance 7 mL/min (70-130); Calcium 9.6 mg/dL (7.8-10.44); Carbon Dioxide 26 mmol/L (22-29); Chloride 97 mmol/L (98-107); Estimated GFR 5; Globulin 5.2 g/dL (2.4-3.5); Glucose 98 mg/dL (70-105); Potassium 4.1 mmol/L (3.5-5.1); Protein, Total 7.8 g/dL (6.0-8.3); Sodium 134 mmol/L (136-145)
[2022-11-10] MEDS: FLUoxetine HCl 20 MG CAP PO SCH (08:33)
[2022-11-10] MEDS: Pantoprazole 40 MG VIAL IVP SCH ×2 (08:33→22:02)
[2022-11-10] MEDS: Baclofen 10 MG TAB PO SCH (08:33)
[2022-11-10] MEDS: Sevelamer 2.4 GM PACKET PO SCH ×4 (08:33→22:02)
[2022-11-10] MEDS: levETIRAcetam 500 MG/5 ML VIAL SLOW IVP SCH ×3 (08:33→22:02)
[2022-11-10] MEDS: Fosphenytoin Sodium 200 MG in Sodium Chloride 0.9% 50 ML IVPB SCH ×2 (08:33→22:01)
[2022-11-10] MEDS: Aspirin Chewable 81 MG TAB PO SCH (08:33)
[2022-11-10] MEDS ORDERED: levETIRAcetam in NS 500 MG in Premix Bag 1 BAG IVPB SCH (09:00)
[2022-11-10] MEDS: Lacosamide 100 MG in Sodium Chloride 0.9% 50 ML IVPB SCH (09:46)
[2022-11-10] MEDS ORDERED: SODIUM CHLORIDE 0.9% IVPB SCH (17:00)
[2022-11-10] MEDS ORDERED: LACOSAMIDE IVPB SCH (17:00)
[2022-11-10] MEDS: Atorvastatin Calcium 40 MG TAB PER TUBE SCH (22:02)
[2022-11-10] MEDS: Lacosamide 50 MG in Sodium Chloride 0.9% 50 ML IVPB SCH (22:02)
[2022-11-11 07:05] LABS: Hemoglobin 8.4 g/dL (14.0-18.0); Mean Corpuscular HGB CONC 31.7 g/dL (32.0-36.0); Mean Corpuscular Volume 85.2 fl (78.0-98.0); Mean Platelet Volume 8.5 fL (7.4-10.4); Platelet Count 257 10x3/uL (130-400); RBC Distribution Width 15.7 % (11.5-14.5); Red Blood Cell (RBC) Count 3.09 mill/uL (4.70-6.10); White Blood Cell (WBC) Count 5.8 10x3/uL (4.8-10.8)
[2022-11-11 07:21] LABS: ALT (SGPT) 8 U/L (8-55); AST (SGOT) 25 U/L (5-34); Albumin 2.6 g/dL (3.5-5.0); Alkaline Phosphatase 68 U/L (40-110); Anion Gap 13 mmol/L (10-20); BUN (Urea Nitrogen) 30 mg/dL (8.4-25.7); Bilirubin, Total 0.3 mg/dL (0.2-1.2); Calc. Creatinine Clearance 10 mL/min (70-130); Carbon Dioxide 29 mmol/L (22-29); Chloride 96 mmol/L (98-107); Estimated GFR 8; Globulin 5.5 g/dL (2.4-3.5); Glucose 106 mg/dL (70-105); Magnesium 2.4 mg/dL (1.6-2.6); Potassium 3.8 mmol/L (3.5-5.1); Protein, Total 8.1 g/dL (6.0-8.3); Sodium 134 mmol/L (136-145)
[2022-11-11] MEDS: Fosphenytoin Sodium 200 MG in Sodium Chloride 0.9% 50 ML IVPB SCH ×2 (08:21→21:57)
[2022-11-11] MEDS: Pantoprazole 40 MG VIAL IVP SCH ×2 (08:21→21:57)
[2022-11-11] MEDS: FLUoxetine HCl 20 MG CAP PO SCH (08:21)
[2022-11-11] MEDS: levETIRAcetam 500 MG/5 ML VIAL SLOW IVP SCH ×2 (08:21→21:56)
[2022-11-11] MEDS: Aspirin Chewable 81 MG TAB PO SCH (08:21)
[2022-11-11] MEDS: Sevelamer 2.4 GM PACKET PO SCH ×3 (08:21→21:56)
[2022-11-11 08:25] LABS: Eosinophils 1 % (0-10); Hypochromia SLIGHT = 6-15 cells (100X) (0-5/hpf); Lymphocytes 26 % (21-51); MDiff Complete? YES; Monocytes 15 % (0-10); Neutrophil 56 % (42-75); Platelet Morphology Comment Appears Adequate; Polychromasia SLIGHT = 2-3 cells (100X) (0-2/hpf)
[2022-11-11] MEDS ORDERED: Bisacodyl 10 MG SUPP PR PRN (09:02)
[2022-11-11] MEDS ORDERED: Bisacodyl 5 MG TAB PO PRN (09:02)
[2022-11-11] MEDS: Lacosamide 50 MG in Sodium Chloride 0.9% 50 ML IVPB SCH (09:33)
[2022-11-11 11:39] LABS: Chlamydia trachomatis by NAA Negative (Negative)
[2022-11-11 14:14] LABS: Alb/Glob Ratio 0.6 (0.7-1.7); Albumin 2.4 g/dL (2.9-4.4); Alpha-1-Globulin 0.4 g/dL (0.0-0.4); Alpha-2-Globulin 0.8 g/dL (0.4-1.0); Beta-Globulin 0.9 g/dL (0.7-1.3); Gamma-Globulin 2.5 g/dL (0.4-1.8); Globulin, Total 4.7 g/dL (2.2-3.9); IgA - Total IgA (Sendout) 460 mg/dL (90-386); Immunoglobulin - G (Sendout) 3033 mg/dL (603-1613); Immunoglobulin - M (Sendout) 38 mg/dL (20-172); M-Spike 1.1 g/dL (Not Observed)
[2022-11-11] MEDS ORDERED: Atorvastatin Calcium 40 MG TAB PER TUBE SCH (22:15)
[2022-11-12] MEDS ORDERED: Heparin 10,000 UNITS/ 10 ML VIAL ONE (08:22)
[2022-11-12] MEDS: Polyethylene Glycol 3350 17 GM Packet PER TUBE SCH (08:45)
[2022-11-12] MEDS: Sevelamer 2.4 GM PACKET PO SCH ×2 (08:45→16:18)
[2022-11-12] MEDS: Pantoprazole 40 MG VIAL IVP SCH (08:45)
[2022-11-12] MEDS: Aspirin Chewable 81 MG TAB PO SCH (08:45)
[2022-11-12] MEDS: levETIRAcetam 500 MG/5 ML VIAL SLOW IVP SCH ×2 (08:45→16:18)
[2022-11-12] MEDS: Fosphenytoin Sodium 200 MG in Sodium Chloride 0.9% 50 ML IVPB SCH (08:45)
[2022-11-12] MEDS: FLUoxetine HCl 20 MG CAP PO SCH (08:45)
[2022-11-12 18:01] LABS: Phosphorus 2.8 mg/dL (2.3-4.7)
[2022-11-13] MEDS: Sevelamer 2.4 GM PACKET PO SCH ×4 (00:01→21:41)
[2022-11-13] MEDS: Pantoprazole 40 MG VIAL IVP SCH ×3 (00:01→21:41)
[2022-11-13] MEDS: levETIRAcetam 500 MG/5 ML VIAL SLOW IVP SCH ×3 (10:09→21:41)
[2022-11-13] MEDS: Polyethylene Glycol 3350 17 GM Packet PER TUBE SCH (10:10)
[2022-11-13] MEDS: FLUoxetine HCl 20 MG CAP PO SCH (10:10)
[2022-11-13] MEDS: Aspirin Chewable 81 MG TAB PO SCH (10:10)
[2022-11-13] MEDS: Fosphenytoin Sodium 200 MG in Sodium Chloride 0.9% 50 ML IVPB SCH ×3 (10:12→21:41)
[2022-11-13 10:51] LABS: #Basophils 0.1 thou/uL (0.0-0.2); #Eosinphils 0.2 thou/uL (0.0-0.7); #Lymphocytes 1.2 thou/uL (1.20-3.40); #Monocytes 0.8 thou/uL (0.11-0.59); #Neutrophils 3.9 thou/uL (1.40-6.50); %Basophils 0.9 % (0.0-1.0); %Eosinophils 2.6 % (0.0-10.0); %Lymphocytes 20.3 % (21.0-51.0); %Monocytes 12.2 % (0.0-10.0); Hemoglobin 8.3 g/dL (14.0-18.0); Mean Corpuscular Hemoglobin 26.7 pg (27.0-31.0); Mean Corpuscular Volume 86.2 fl (78.0-98.0); Mean Platelet Volume 8.7 fL (7.4-10.4); Platelet Count 268 10x3/uL (130-400); RBC Distribution Width 15.3 % (11.5-14.5); White Blood Cell (WBC) Count 6.1 10x3/uL (4.8-10.8)
[2022-11-13 11:19] LABS: Anion Gap 15 mmol/L (10-20); BUN (Urea Nitrogen) 38 mg/dL (8.4-25.7); Calc. Creatinine Clearance 10 mL/min (70-130); Calcium 9.6 mg/dL (7.8-10.44); Carbon Dioxide 28 mmol/L (22-29); Chloride 93 mmol/L (98-107); Estimated GFR 8; Glucose 101 mg/dL (70-105); Potassium 3.8 mmol/L (3.5-5.1); Sodium 132 mmol/L (136-145)
[2022-11-13] MEDS: Atorvastatin Calcium 40 MG TAB PER TUBE SCH ×2 (21:42)
[2022-11-14 05:33] LABS: #Eosinphils 0.2 thou/uL (0.0-0.7); #Lymphocytes 1.3 thou/uL (1.20-3.40); #Monocytes 0.9 thou/uL (0.11-0.59); #Neutrophils 4.4 thou/uL (1.40-6.50); %Basophils 0.6 % (0.0-1.0); %Eosinophils 2.3 % (0.0-10.0); %Lymphocytes 18.8 % (21.0-51.0); %Monocytes 12.8 % (0.0-10.0); %Neutrophils 65.4 % (42.0-75.0); Hemoglobin 8.4 g/dL (14.0-18.0); Mean Corpuscular HGB CONC 32.2 g/dL (32.0-36.0); Mean Corpuscular Hemoglobin 27.7 pg (27.0-31.0); Mean Platelet Volume 8.7 fL (7.4-10.4); Platelet Count 240 10x3/uL (130-400); RBC Distribution Width 15.4 % (11.5-14.5); Red Blood Cell (RBC) Count 3.03 mill/uL (4.70-6.10); White Blood Cell (WBC) Count 6.7 10x3/uL (4.8-10.8)
[2022-11-14 05:55] LABS: Anion Gap 17 mmol/L (10-20); BUN (Urea Nitrogen) 53 mg/dL (8.4-25.7); Calc. Creatinine Clearance 8 mL/min (70-130); Calcium 9.6 mg/dL (7.8-10.44); Carbon Dioxide 27 mmol/L (22-29); Chloride 91 mmol/L (98-107); Estimated GFR 6; Glucose 94 mg/dL (70-105); Sodium 131 mmol/L (136-145)
[2022-11-14] MEDS ORDERED: Vancomycin Dose by Levels Sliding Scale (Wt <71) FS SCH (09:00)
[2022-11-14] MEDS ORDERED: Heparin 10,000 UNITS/ 10 ML VIAL ONE (09:24)
[2022-11-14] MEDS ORDERED: Vancomycin 1.5 GRAM/300 ML BAG 1.5 GM in Premix Bag 1 BAG IVPB SCH (10:00)
[2022-11-14] MEDS ORDERED: Vancomycin Hemodialysis Sliding Scale FS SCH (11:30)
[2022-11-14] MEDS ORDERED: Cefepime 0.5 GM in Admixture Fee 1 EACH IVPB SCH (12:00)
[2022-11-14] MEDS: Pantoprazole 40 MG VIAL IVP SCH ×2 (12:07→20:20)
[2022-11-14] MEDS: Aspirin Chewable 81 MG TAB PO SCH (12:08)
[2022-11-14] MEDS: Fosphenytoin Sodium 200 MG in Sodium Chloride 0.9% 50 ML IVPB SCH ×2 (12:08→20:19)
[2022-11-14] MEDS: FLUoxetine HCl 20 MG CAP PO SCH (12:08)
[2022-11-14] MEDS: Polyethylene Glycol 3350 17 GM Packet PER TUBE SCH (12:08)
[2022-11-14] MEDS: Sevelamer 2.4 GM PACKET PO SCH ×3 (12:08→20:21)
[2022-11-14] MEDS: EPOETIN ALFA-EPBX (ESRD) 2,000 UNITS/ML VIAL SC SCH (12:09)
[2022-11-14] MEDS: Cefepime 0.5 GM, Admixture Fee 1 EACH in Sodium Chloride 0.9% 100 ML IVPB SCH (15:50)
[2022-11-14] MEDS: Lactated Ringer's 500 ML IV SCH (17:10)
[2022-11-14] MEDS ORDERED: Metoprolol Tartrate 5 MG/5 ML VIAL IVP SCH (18:30)
[2022-11-14] MEDS ORDERED: Morphine 2 MG/ML VIAL SLOW IVP SCH (18:30)
[2022-11-14] MEDS: Acetaminophen 650 MG/20.3 ML UDCUP PER TUBE PRN (20:19)
[2022-11-14] MEDS: Atorvastatin Calcium 40 MG TAB PER TUBE SCH (20:21)
[2022-11-15 06:27] LABS: #Basophils 0.1 thou/uL (0.0-0.2); #Eosinphils 0.1 thou/uL (0.0-0.7); #Lymphocytes 1.2 thou/uL (1.20-3.40); #Monocytes 1.1 thou/uL (0.11-0.59); %Basophils 1.1 % (0.0-1.0); %Eosinophils 1.9 % (0.0-10.0); %Lymphocytes 16.5 % (21.0-51.0); %Neutrophils 66.4 % (42.0-75.0); Mean Corpuscular HGB CONC 32.5 g/dL (32.0-36.0); Mean Corpuscular Hemoglobin 27.8 pg (27.0-31.0); Mean Corpuscular Volume 85.7 fl (78.0-98.0); Mean Platelet Volume 8.9 fL (7.4-10.4); Platelet Count 240 10x3/uL (130-400); RBC Distribution Width 15.2 % (11.5-14.5); Red Blood Cell (RBC) Count 3.22 mill/uL (4.70-6.10); White Blood Cell (WBC) Count 7.5 10x3/uL (4.8-10.8)
[2022-11-15 06:47] LABS: Anion Gap 14 mmol/L (10-20); BUN (Urea Nitrogen) 33 mg/dL (8.4-25.7); Calc. Creatinine Clearance 11 mL/min (70-130); Calcium 9.5 mg/dL (7.8-10.44); Carbon Dioxide 28 mmol/L (22-29); Chloride 96 mmol/L (98-107); Estimated GFR 9; Glucose 87 mg/dL (70-105); Potassium 3.8 mmol/L (3.5-5.1); Sodium 134 mmol/L (136-145)
[2022-11-15] MEDS: Lactated Ringer's 1,000 ML IV SCH ×2 (08:12→12:08)
[2022-11-15] MEDS: Fosphenytoin Sodium 200 MG in Sodium Chloride 0.9% 50 ML IVPB SCH ×2 (08:49→20:14)
[2022-11-15] MEDS: Pantoprazole 40 MG VIAL IVP SCH ×2 (08:50→20:14)
[2022-11-15] MEDS: Polyethylene Glycol 3350 17 GM Packet PER TUBE SCH (08:57)
[2022-11-15] MEDS: Sevelamer 2.4 GM PACKET PO SCH ×3 (08:58→20:14)
[2022-11-15] MEDS: FLUoxetine HCl 20 MG CAP PO SCH (08:59)
[2022-11-15] MEDS: Aspirin Chewable 81 MG TAB PO SCH (08:59)
[2022-11-15] MEDS: Lactated Ringer's 500 ML IV SCH (09:28)
[2022-11-15] MEDS: Acetaminophen 650 MG/20.3 ML UDCUP PER TUBE PRN (11:10)
[2022-11-15] MEDS: Cefepime 0.5 GM, Admixture Fee 1 EACH in Sodium Chloride 0.9% 100 ML IVPB SCH (14:35)
[2022-11-15] MEDS: Atorvastatin Calcium 40 MG TAB PER TUBE SCH (20:15)
[2022-11-16] MEDS: Fosphenytoin Sodium 200 MG in Sodium Chloride 0.9% 50 ML IVPB SCH ×2 (09:12→21:21)
[2022-11-16] MEDS: Aspirin Chewable 81 MG TAB PO SCH (09:12)
[2022-11-16] MEDS: Sevelamer 2.4 GM PACKET PO SCH ×3 (09:12→21:21)
[2022-11-16] MEDS: Pantoprazole 40 MG VIAL IVP SCH ×2 (09:12→21:21)
[2022-11-16] MEDS: FLUoxetine HCl 20 MG CAP PO SCH (09:12)
[2022-11-16] MEDS: Polyethylene Glycol 3350 17 GM Packet PER TUBE SCH (09:12)
[2022-11-16 09:35] LABS: #Basophils 0.1 thou/uL (0.0-0.2); #Eosinphils 0.2 thou/uL (0.0-0.7); #Lymphocytes 1.3 thou/uL (1.20-3.40); #Monocytes 0.7 thou/uL (0.11-0.59); #Neutrophils 3.5 thou/uL (1.40-6.50); %Eosinophils 2.8 % (0.0-10.0); %Lymphocytes 22.6 % (21.0-51.0); %Neutrophils 61.6 % (42.0-75.0); Hemoglobin 9.1 g/dL (14.0-18.0); Mean Corpuscular HGB CONC 33.7 g/dL (32.0-36.0); Mean Corpuscular Hemoglobin 29.1 pg (27.0-31.0); Mean Corpuscular Volume 86.3 fl (78.0-98.0); Mean Platelet Volume 8.7 fL (7.4-10.4); Platelet Count 227 10x3/uL (130-400); Red Blood Cell (RBC) Count 3.13 mill/uL (4.70-6.10); White Blood Cell (WBC) Count 5.6 10x3/uL (4.8-10.8)
[2022-11-16 10:00] LABS: Anion Gap 17 mmol/L (10-20); BUN (Urea Nitrogen) 46 mg/dL (8.4-25.7); Calc. Creatinine Clearance 8 mL/min (70-130); Carbon Dioxide 26 mmol/L (22-29); Chloride 93 mmol/L (98-107); Estimated GFR 6; Glucose 89 mg/dL (70-105); Potassium 3.9 mmol/L (3.5-5.1); Sodium 132 mmol/L (136-145)
[2022-11-16] MEDS: Cefepime 0.5 GM, Admixture Fee 1 EACH in Sodium Chloride 0.9% 100 ML IVPB SCH (14:45)
[2022-11-16] MEDS: Atorvastatin Calcium 40 MG TAB PER TUBE SCH (21:22)
[2022-11-17 07:39] LABS: #Basophils 0.1 thou/uL (0.0-0.2); #Eosinphils 0.2 thou/uL (0.0-0.7); #Lymphocytes 1.1 thou/uL (1.20-3.40); #Monocytes 0.6 thou/uL (0.11-0.59); #Neutrophils 3.8 thou/uL (1.40-6.50); %Basophils 0.9 % (0.0-1.0); %Eosinophils 3.4 % (0.0-10.0); %Lymphocytes 18.5 % (21.0-51.0); %Monocytes 9.9 % (0.0-10.0); %Neutrophils 67.3 % (42.0-75.0); Hemoglobin 8.4 g/dL (14.0-18.0); Mean Corpuscular HGB CONC 33.6 g/dL (32.0-36.0); Mean Corpuscular Hemoglobin 28.4 pg (27.0-31.0); Mean Corpuscular Volume 84.6 fl (78.0-98.0); Mean Platelet Volume 8.6 fL (7.4-10.4); Platelet Count 244 10x3/uL (130-400); Red Blood Cell (RBC) Count 2.97 mill/uL (4.70-6.10); White Blood Cell (WBC) Count 5.7 10x3/uL (4.8-10.8)
[2022-11-17 07:55] LABS: Vancomycin, Random 25.7 ug/mL (See Comment)
[2022-11-17 07:57] LABS: ALT (SGPT) 12 U/L (8-55); AST (SGOT) 30 U/L (5-34); Albumin 2.6 g/dL (3.5-5.0); Alkaline Phosphatase 66 U/L (40-110); Anion Gap 16 mmol/L (10-20); BUN (Urea Nitrogen) 56 mg/dL (8.4-25.7); Bilirubin, Total 0.2 mg/dL (0.2-1.2); Calc. Creatinine Clearance 7 mL/min (70-130); Calcium 9.5 mg/dL (7.8-10.44); Carbon Dioxide 26 mmol/L (22-29); Chloride 92 mmol/L (98-107); Estimated GFR 5; Globulin 5.3 g/dL (2.4-3.5); Glucose 91 mg/dL (70-105); Potassium 3.9 mmol/L (3.5-5.1); Protein, Total 7.9 g/dL (6.0-8.3); Sodium 130 mmol/L (136-145)
[2022-11-17] MEDS ORDERED: Heparin 10,000 UNITS/ 10 ML VIAL ONE (08:37)
[2022-11-17] MEDS: Polyethylene Glycol 3350 17 GM Packet PER TUBE SCH (09:24)
[2022-11-17] MEDS: Sevelamer 2.4 GM PACKET PO SCH ×3 (09:24→21:38)
[2022-11-17] MEDS: Pantoprazole 40 MG VIAL IVP SCH ×2 (09:24→21:38)
[2022-11-17 09:37] LABS: Kappa Lambda Light Chain Ratio 2.39 (0.26-1.65); Kappa Light Chains 1103.9 mg/L (3.3-19.4); Lambda Light Chain 462.1 mg/L (5.7-26.3)
[2022-11-17] MEDS: FLUoxetine HCl 20 MG CAP PO SCH (12:47)
[2022-11-17] MEDS: Fosphenytoin Sodium 200 MG in Sodium Chloride 0.9% 50 ML IVPB SCH ×2 (12:47→21:38)
[2022-11-17] MEDS: Aspirin Chewable 81 MG TAB PO SCH (12:47)
[2022-11-17] MEDS: Cefepime 0.5 GM, Admixture Fee 1 EACH in Sodium Chloride 0.9% 100 ML IVPB SCH (14:35)
[2022-11-17] MEDS: Atorvastatin Calcium 40 MG TAB PER TUBE SCH (21:38)
[2022-11-18 06:00] LABS: #Basophils 0.1 thou/uL (0.0-0.2); #Eosinphils 0.2 thou/uL (0.0-0.7); #Lymphocytes 1.4 thou/uL (1.20-3.40); #Monocytes 0.5 thou/uL (0.11-0.59); #Neutrophils 4.5 thou/uL (1.40-6.50); %Basophils 1.1 % (0.0-1.0); %Eosinophils 2.3 % (0.0-10.0); %Lymphocytes 20.5 % (21.0-51.0); %Neutrophils 68.1 % (42.0-75.0); Hemoglobin 9.2 g/dL (14.0-18.0); Mean Corpuscular HGB CONC 31.9 g/dL (32.0-36.0); Mean Corpuscular Hemoglobin 27.2 pg (27.0-31.0); Mean Corpuscular Volume 85.2 fl (78.0-98.0); Mean Platelet Volume 9.4 fL (7.4-10.4); Platelet Count 248 10x3/uL (130-400); RBC Distribution Width 15.1 % (11.5-14.5); Red Blood Cell (RBC) Count 3.36 mill/uL (4.70-6.10); White Blood Cell (WBC) Count 6.6 10x3/uL (4.8-10.8)
[2022-11-18 06:22] LABS: Anion Gap 15 mmol/L (10-20); BUN (Urea Nitrogen) 30 mg/dL (8.4-25.7); Calc. Creatinine Clearance 11 mL/min (70-130); Calcium 8.6 mg/dL (7.8-10.44); Carbon Dioxide 25 mmol/L (22-29); Chloride 95 mmol/L (98-107); Estimated GFR 9; Glucose 80 mg/dL (70-105); Potassium 4.2 mmol/L (3.5-5.1); Sodium 131 mmol/L (136-145)
[2022-11-18] MEDS: Polyethylene Glycol 3350 17 GM Packet PER TUBE SCH (09:46)
[2022-11-18] MEDS: Sevelamer 2.4 GM PACKET PO SCH ×3 (09:46→21:28)
[2022-11-18] MEDS: Aspirin Chewable 81 MG TAB PO SCH (09:47)
[2022-11-18] MEDS: FLUoxetine HCl 20 MG CAP PO SCH (09:47)
[2022-11-18] MEDS: Pantoprazole 40 MG VIAL IVP SCH ×2 (09:47→21:29)
[2022-11-18] MEDS: Fosphenytoin Sodium 200 MG in Sodium Chloride 0.9% 50 ML IVPB SCH (09:52)
[2022-11-18] MEDS: Cefepime 0.5 GM, Admixture Fee 1 EACH in Sodium Chloride 0.9% 100 ML IVPB SCH (14:59)
[2022-11-18 15:14] LABS: Kappa Lambda Light Chain Ratio 2.62 (0.26-1.65); Lambda Light Chain 452.5 mg/L (5.7-26.3)
[2022-11-18] MEDS: Atorvastatin Calcium 40 MG TAB PER TUBE SCH (21:29)
[2022-11-19 08:00] LABS: #Basophils 0.1 thou/uL (0.0-0.2); #Eosinphils 0.2 thou/uL (0.0-0.7); #Lymphocytes 1.3 thou/uL (1.20-3.40); #Monocytes 0.7 thou/uL (0.11-0.59); #Neutrophils 3.6 thou/uL (1.40-6.50); %Basophils 1.3 % (0.0-1.0); %Eosinophils 2.9 % (0.0-10.0); %Neutrophils 60.8 % (42.0-75.0); Hemoglobin 8.6 g/dL (14.0-18.0); Mean Corpuscular HGB CONC 33.8 g/dL (32.0-36.0); Mean Corpuscular Hemoglobin 28.4 pg (27.0-31.0); Mean Corpuscular Volume 83.9 fl (78.0-98.0); Mean Platelet Volume 8.8 fL (7.4-10.4); Platelet Count 258 10x3/uL (130-400); RBC Distribution Width 15.2 % (11.5-14.5); Red Blood Cell (RBC) Count 3.04 mill/uL (4.70-6.10); White Blood Cell (WBC) Count 5.9 10x3/uL (4.8-10.8)
[2022-11-19 08:14] LABS: ALT (SGPT) 12 U/L (8-55); AST (SGOT) 33 U/L (5-34); Albumin 2.4 g/dL (3.5-5.0); Alkaline Phosphatase 72 U/L (40-110); Anion Gap 15 mmol/L (10-20); BUN (Urea Nitrogen) 40 mg/dL (8.4-25.7); Bilirubin, Total 0.3 mg/dL (0.2-1.2); Calc. Creatinine Clearance 8 mL/min (70-130); Calcium 8.7 mg/dL (7.8-10.44); Carbon Dioxide 25 mmol/L (22-29); Chloride 92 mmol/L (98-107); Estimated GFR 6; Globulin 5.2 g/dL (2.4-3.5); Glucose 64 mg/dL (70-105); Potassium 4.1 mmol/L (3.5-5.1); Protein, Total 7.6 g/dL (6.0-8.3); Sodium 128 mmol/L (136-145)
[2022-11-19 08:15] LABS: Vancomycin, Random 17.6 ug/mL (See Comment)
[2022-11-19] MEDS: Aspirin Chewable 81 MG TAB PO SCH (09:27)
[2022-11-19] MEDS: Pantoprazole 40 MG VIAL IVP SCH ×2 (09:27→21:42)
[2022-11-19] MEDS: Sevelamer 2.4 GM PACKET PO SCH ×3 (09:27→21:42)
[2022-11-19] MEDS: Polyethylene Glycol 3350 17 GM Packet PER TUBE SCH (09:27)
[2022-11-19] MEDS: FLUoxetine HCl 20 MG CAP PO SCH (09:27)
[2022-11-19 14:39] LABS: IFE-Serum Interpretation Note: (.); IgA - Total IgA (Sendout) 466 mg/dL (90-386); Immunoglobulin - G (Sendout) 3218 mg/dL (603-1613); Immunoglobulin - M (Sendout) 43 mg/dL (20-172)
[2022-11-19] MEDS: Cefepime 0.5 GM, Admixture Fee 1 EACH in Sodium Chloride 0.9% 100 ML IVPB SCH (15:57)
[2022-11-19] MEDS ORDERED: Vancomycin HCl 500 MG in Sodium Chloride 0.9% 100 ML IVPB SCH (17:00)
[2022-11-19] MEDS: Atorvastatin Calcium 40 MG TAB PER TUBE SCH (21:42)
[2022-11-20 05:24] LABS: #Basophils 0.1 thou/uL (0.0-0.2); #Eosinphils 0.2 thou/uL (0.0-0.7); #Lymphocytes 1.5 thou/uL (1.20-3.40); #Monocytes 0.8 thou/uL (0.11-0.59); #Neutrophils 3.7 thou/uL (1.40-6.50); %Basophils 1.2 % (0.0-1.0); %Eosinophils 2.7 % (0.0-10.0); %Lymphocytes 24.1 % (21.0-51.0); %Monocytes 12.9 % (0.0-10.0); %Neutrophils 59.1 % (42.0-75.0); Hemoglobin 8.6 g/dL (14.0-18.0); Mean Corpuscular Hemoglobin 27.3 pg (27.0-31.0); Mean Corpuscular Volume 85.1 fl (78.0-98.0); Mean Platelet Volume 8.2 fL (7.4-10.4); Platelet Count 272 10x3/uL (130-400); RBC Distribution Width 15.1 % (11.5-14.5); Red Blood Cell (RBC) Count 3.14 mill/uL (4.70-6.10); White Blood Cell (WBC) Count 6.3 10x3/uL (4.8-10.8)
[2022-11-20 05:50] LABS: Anion Gap 15 mmol/L (10-20); BUN (Urea Nitrogen) 25 mg/dL (8.4-25.7); Calc. Creatinine Clearance 11 mL/min (70-130); Calcium 8.7 mg/dL (7.8-10.44); Carbon Dioxide 25 mmol/L (22-29); Chloride 96 mmol/L (98-107); Estimated GFR 9; Glucose 65 mg/dL (70-105); Potassium 3.9 mmol/L (3.5-5.1); Sodium 132 mmol/L (136-145)
[2022-11-20] MEDS: Sevelamer 2.4 GM PACKET PO SCH ×3 (08:27→21:12)
[2022-11-20] MEDS: Aspirin Chewable 81 MG TAB PO SCH (08:28)
[2022-11-20] MEDS: FLUoxetine HCl 20 MG CAP PO SCH (08:28)
[2022-11-20] MEDS: Pantoprazole 40 MG VIAL IVP SCH ×2 (08:28→21:14)
[2022-11-20] MEDS: Cefepime 0.5 GM, Admixture Fee 1 EACH in Sodium Chloride 0.9% 100 ML IVPB SCH (14:54)
[2022-11-20] MEDS: Atorvastatin Calcium 40 MG TAB PER TUBE SCH (21:14)
[2022-11-21 04:55] LABS: #Basophils 0.1 thou/uL (0.0-0.2); #Eosinphils 0.2 thou/uL (0.0-0.7); #Lymphocytes 1.5 thou/uL (1.20-3.40); #Monocytes 0.8 thou/uL (0.11-0.59); #Neutrophils 3.2 thou/uL (1.40-6.50); %Monocytes 13.1 % (0.0-10.0); %Neutrophils 55.9 % (42.0-75.0); Mean Corpuscular HGB CONC 30.3 g/dL (32.0-36.0); Mean Corpuscular Hemoglobin 25.8 pg (27.0-31.0); Mean Corpuscular Volume 85.2 fl (78.0-98.0); Mean Platelet Volume 8.2 fL (7.4-10.4); Platelet Count 271 10x3/uL (130-400); RBC Distribution Width 15.1 % (11.5-14.5); Red Blood Cell (RBC) Count 3.11 mill/uL (4.70-6.10); White Blood Cell (WBC) Count 5.7 10x3/uL (4.8-10.8)
[2022-11-21 05:11] LABS: Anion Gap 15 mmol/L (10-20); BUN (Urea Nitrogen) 33 mg/dL (8.4-25.7); Calc. Creatinine Clearance 9 mL/min (70-130); Calcium 8.8 mg/dL (7.8-10.44); Carbon Dioxide 24 mmol/L (22-29); Chloride 92 mmol/L (98-107); Estimated GFR 7; Glucose 60 mg/dL (70-105); Potassium 3.9 mmol/L (3.5-5.1); Sodium 127 mmol/L (136-145)
[2022-11-21 07:36] LABS: Vancomycin, Random 19.1 ug/mL (See Comment)
[2022-11-21] MEDS ORDERED: Heparin 10,000 UNITS/ 10 ML VIAL ONE (09:12)
[2022-11-21] MEDS: Pantoprazole 40 MG VIAL IVP SCH ×2 (11:10→19:57)
[2022-11-21] MEDS: EPOETIN ALFA-EPBX (ESRD) 2,000 UNITS/ML VIAL SC SCH (11:10)
[2022-11-21] MEDS: FLUoxetine HCl 20 MG CAP PO SCH (11:11)
[2022-11-21] MEDS: Aspirin Chewable 81 MG TAB PO SCH (11:11)
[2022-11-21] MEDS: Sevelamer 2.4 GM PACKET PO SCH ×3 (11:11→19:57)
[2022-11-21] MEDS: Atorvastatin Calcium 40 MG TAB PER TUBE SCH (19:57)
[2022-11-22 05:05] LABS: Hemoglobin 8.5 g/dL (14.0-18.0); Mean Corpuscular HGB CONC 32.1 g/dL (32.0-36.0); Mean Corpuscular Hemoglobin 27.2 pg (27.0-31.0); Mean Corpuscular Volume 84.7 fl (78.0-98.0); Mean Platelet Volume 8.1 fL (7.4-10.4); Platelet Count 274 10x3/uL (130-400); White Blood Cell (WBC) Count 5.8 10x3/uL (4.8-10.8)
[2022-11-22 05:29] LABS: Anion Gap 12 mmol/L (10-20); BUN (Urea Nitrogen) 20 mg/dL (8.4-25.7); Calc. Creatinine Clearance 12 mL/min (70-130); Calcium 8.7 mg/dL (7.8-10.44); Carbon Dioxide 26 mmol/L (22-29); Chloride 93 mmol/L (98-107); Estimated GFR 10; Potassium 3.7 mmol/L (3.5-5.1); Sodium 127 mmol/L (136-145)
[2022-11-22 05:33] LABS: Glucose 54 mg/dL (70-105)
[2022-11-22 05:34] LABS: Eosinophils 2 % (0-10); Lymphocytes 28 % (21-51); MDiff Complete? YES; Monocytes 14 % (0-10); Neutrophil 55 % (42-75)
[2022-11-22] MEDS: Sevelamer 2.4 GM PACKET PO SCH (08:08)
[2022-11-22] MEDS: Aspirin Chewable 81 MG TAB PO SCH (08:11)
[2022-11-22] MEDS: FLUoxetine HCl 20 MG CAP PO SCH (08:12)
[2022-11-22] MEDS: Pantoprazole 40 MG VIAL IVP SCH ×2 (08:13→20:06)
[2022-11-22] MEDS: Heparin 5,000 UNITS/ML VIAL SC SCH ×2 (15:42→20:06)
[2022-11-22] MEDS: Sevelamer Carbonate 800 MG TAB PO SCH (18:10)
[2022-11-22] MEDS: Atorvastatin Calcium 40 MG TAB PER TUBE SCH (20:06)
[2022-11-23] MEDS: Sevelamer Carbonate 800 MG TAB PO SCH ×3 (08:35→17:55)
[2022-11-23] MEDS: Aspirin Chewable 81 MG TAB PO SCH (08:35)
[2022-11-23] MEDS: FLUoxetine HCl 20 MG CAP PO SCH (08:35)
[2022-11-23] MEDS: Heparin 5,000 UNITS/ML VIAL SC SCH ×3 (08:37→21:19)
[2022-11-23] MEDS: Pantoprazole 40 MG VIAL IVP SCH ×2 (08:37→21:19)
[2022-11-23] MEDS: Atorvastatin Calcium 40 MG TAB PER TUBE SCH (21:18)
[2022-11-24] MEDS ORDERED: Heparin 10,000 UNITS/ 10 ML VIAL ONE (08:30)
[2022-11-24] MEDS: Aspirin Chewable 81 MG TAB PO SCH (08:50)
[2022-11-24] MEDS: FLUoxetine HCl 20 MG CAP PO SCH (08:50)
[2022-11-24] MEDS: Sevelamer Carbonate 800 MG TAB PO SCH ×3 (08:51→17:48)
[2022-11-24] MEDS: Pantoprazole 40 MG VIAL IVP SCH ×2 (08:52→20:51)
[2022-11-24] MEDS: Heparin 5,000 UNITS/ML VIAL SC SCH ×3 (08:54→20:50)
[2022-11-24] MEDS: Acetaminophen 650 MG/20.3 ML UDCUP PER TUBE PRN (12:41)
[2022-11-24] MEDS: Atorvastatin Calcium 40 MG TAB PER TUBE SCH (20:50)
[2022-11-25] MEDS: Heparin 5,000 UNITS/ML VIAL SC SCH ×3 (08:20→21:54)
[2022-11-25] MEDS: Aspirin Chewable 81 MG TAB PO SCH (08:20)
[2022-11-25] MEDS: Sevelamer Carbonate 800 MG TAB PO SCH ×3 (08:20→17:28)
[2022-11-25] MEDS: Pantoprazole 40 MG VIAL IVP SCH ×2 (08:20→21:43)
[2022-11-25] MEDS: FLUoxetine HCl 20 MG CAP PO SCH (08:20)
[2022-11-25] MEDS: Atorvastatin Calcium 40 MG TAB PER TUBE SCH (21:44)
[2022-11-26 05:13] LABS: Hemoglobin 7.3 g/dL (14.0-18.0); Mean Corpuscular HGB CONC 31.7 g/dL (32.0-36.0); Mean Corpuscular Hemoglobin 26.4 pg (27.0-31.0); Mean Corpuscular Volume 83.3 fl (78.0-98.0); Mean Platelet Volume 9.6 fL (7.4-10.4); Platelet Count 239 10x3/uL (130-400); RBC Distribution Width 15.2 % (11.5-14.5); Red Blood Cell (RBC) Count 2.76 mill/uL (4.70-6.10); White Blood Cell (WBC) Count 5.4 10x3/uL (4.8-10.8)
[2022-11-26] MEDS ORDERED: Heparin 10,000 UNITS/ 10 ML VIAL ONE (09:10)
[2022-11-26] MEDS: Aspirin Chewable 81 MG TAB PO SCH (09:35)
[2022-11-26] MEDS: Sevelamer Carbonate 800 MG TAB PO SCH ×3 (09:35→16:04)
[2022-11-26] MEDS: Heparin 5,000 UNITS/ML VIAL SC SCH ×3 (09:36→21:35)
[2022-11-26] MEDS: Pantoprazole 40 MG VIAL IVP SCH ×2 (09:36→21:35)
[2022-11-26] MEDS: FLUoxetine HCl 20 MG CAP PO SCH (09:36)
[2022-11-26] MEDS: Atorvastatin Calcium 40 MG TAB PER TUBE SCH (21:36)
[2022-11-27 05:16] LABS: Anion Gap 13 mmol/L (10-20); BUN (Urea Nitrogen) 17 mg/dL (8.4-25.7); Calc. Creatinine Clearance 13 mL/min (70-130); Calcium 8.6 mg/dL (7.8-10.44); Carbon Dioxide 25 mmol/L (22-29); Chloride 100 mmol/L (98-107); Estimated GFR 10; Glucose 99 mg/dL (70-105); Potassium 3.9 mmol/L (3.5-5.1); Sodium 134 mmol/L (136-145)
[2022-11-27 05:37] LABS: HBSAg Index 0.19 S/CO (0-0.99); Hep B Surf Ag Non-Reactive S/CO (NonReactive)
[2022-11-27 06:49] LABS: HBSAB Concentration 9.29 mIU/mL; Hep B Surf AB Indeterminate (NonReactive)
[2022-11-27] MEDS: Sevelamer Carbonate 800 MG TAB PO SCH ×3 (08:45→18:26)
[2022-11-27] MEDS: Aspirin Chewable 81 MG TAB PO SCH (08:47)
[2022-11-27] MEDS: Heparin 5,000 UNITS/ML VIAL SC SCH ×3 (08:47→20:31)
[2022-11-27] MEDS: FLUoxetine HCl 20 MG CAP PO SCH (08:47)
[2022-11-27] MEDS: Pantoprazole 40 MG VIAL IVP SCH ×2 (08:48→20:30)
[2022-11-27] MEDS: Atorvastatin Calcium 40 MG TAB PER TUBE SCH (20:30)
[2022-11-28] MEDS: Acetaminophen 650 MG/20.3 ML UDCUP PER TUBE PRN (03:41)
[2022-11-28] MEDS ORDERED: Heparin 10,000 UNITS/ 10 ML VIAL ONE (08:52)
[2022-11-28] MEDS: Sevelamer Carbonate 800 MG TAB PO SCH ×3 (09:39→16:34)
[2022-11-28] MEDS: Heparin 5,000 UNITS/ML VIAL SC SCH ×3 (11:32→20:39)
[2022-11-28] MEDS: Aspirin Chewable 81 MG TAB PO SCH (12:37)
[2022-11-28] MEDS: FLUoxetine HCl 20 MG CAP PO SCH (12:38)
[2022-11-28] MEDS: Pantoprazole 40 MG VIAL IVP SCH ×2 (12:39→20:39)
[2022-11-28] MEDS: EPOETIN ALFA-EPBX (ESRD) 2,000 UNITS/ML VIAL SC SCH (12:41)
[2022-11-28] MEDS: Atorvastatin Calcium 40 MG TAB PER TUBE SCH (20:39)
[2022-11-29 06:42] VITALS: BP 144/95; TEMP 97.9
[2022-11-29] MEDS ORDERED: Heparin 10,000 UNITS/ 10 ML VIAL ONE (08:50)
[2022-11-29] MEDS: Sevelamer Carbonate 800 MG TAB PO SCH ×2 (13:06→13:09)
[2022-11-29] MEDS: Pantoprazole 40 MG VIAL IVP SCH (13:07)
[2022-11-29] MEDS: Aspirin Chewable 81 MG TAB PO SCH (13:10)
[2022-11-29] MEDS: FLUoxetine HCl 20 MG CAP PO SCH (13:10)
[2022-11-29] MEDS: Heparin 5,000 UNITS/ML VIAL SC SCH (13:10)
== END 2022-11-29 13:45 | disposition home health service (06) | DRG 682 ==
LOC: ERS 09:46 → SUATTDRO 09:46 → 2NO 14:20 → NEURO 11-07 17:59
PROVIDERS: ADMIT Internal Medicine; ATTEND Internal Medicine
PROC: 30233N1 Transfusion of Nonautologous Red Blood Cells into Peripheral Vein, Percutaneous Approach (ICD-10-PCS; principal; 2022-10-30)
PROC: 5A1D70Z Performance of Urinary Filtration, Intermittent, Less than 6 Hours Per Day (ICD-10-PCS; 2022-10-30)
PROC: 0DB78ZX Excision of Stomach, Pylorus, Via Natural or Artificial Opening Endoscopic, Diagnostic (ICD-10-PCS; 2022-10-31)
PROC: 0DBP8ZZ Excision of Rectum, Via Natural or Artificial Opening Endoscopic (ICD-10-PCS; 2022-10-31)
DX: I12.0 Hypertensive chronic kidney disease with stage 5 chronic kidney disease or end stage renal disease (principal); G92.8 Other toxic encephalopathy; N18.6 End stage renal disease; G40.209 Localization-related (focal) (partial) symptomatic epilepsy and epileptic syndromes with complex partial seizures, not intractable, without status epilepticus; N12 Tubulo-interstitial nephritis, not specified as acute or chronic; T83.518A Infection and inflammatory reaction due to other urinary catheter, initial encounter; I69.951 Hemiplegia and hemiparesis following unspecified cerebrovascular disease affecting right dominant side; N17.9 Acute kidney failure, unspecified; E87.1 Hypo-osmolality and hyponatremia; Z51.5 Encounter for palliative care; D50.0 Iron deficiency anemia secondary to blood loss (chronic); E78.5 Hyperlipidemia, unspecified; F32.A Depression, unspecified; D63.1 Anemia in chronic kidney disease; G89.29 Other chronic pain; F39 Unspecified mood [affective] disorder; E87.6 Hypokalemia; K29.60 Other gastritis without bleeding; K64.8 Other hemorrhoids; G93.89 Other specified disorders of brain; R13.12 Dysphagia, oropharyngeal phase; Z99.2 Dependence on renal dialysis; Z79.82 Long term (current) use of aspirin; Z79.899 Other long term (current) drug therapy; Y84.6 Urinary catheterization as the cause of abnormal reaction of the patient, or of later complication, without mention of misadventure at the time of the procedure; D47.2 Monoclonal gammopathy
CPT/HCPCS: 36415; 36416; 36430; 36600; 70450; 70496; 70498; 70551; 71045; 74018; 74177; 74230; 80048; 80053; 80177; 80185; 80202; 82140; 82728; 82805; 83540; 83550; 83605; 83735; 83883; 84100; 84146; 84155; 84165; 84484; 85014; 85018; 85025; 85027; 85049; 85610; 85730; 86334; 86706; 86850; 86900; 86901; 87070; 87340; 87491; 87591; 88305; 88342; 90935; 93005; 93010; 95712; 95816; 95819; 95957; 99285; C9113; C9254; G0103; G0257; J0456; J0692; J0696; J1644; J1953; J2060; J2250; J2272; J2704; J3370; J3480; J3490; J7030; J7120; P9016; Q2009; Q5105; Q9967

== ENCOUNTER 2025-01-17 13:55 | Emergency (ER) | payer OTHER ==
[2025-01-17 15:34] LABS: Leukocyte Large (Negative); Specific Gravity, Urine 1.018 (1.002-1.036)
[2025-01-17 15:35] LABS: Protein, Urine (Dipstick) > or equal to 300 mg/dL (Neg-Trace)
[2025-01-17 15:36] LABS: Glucose, Urine (Dipstick) Normal (Negative)
[2025-01-17 15:41] LABS: CAUTI Indications for Culture Pelvic or flank pain
[2025-01-17 15:43] LABS: Bacteria/HPF 4+ HPF (None Seen)
[2025-01-17 15:44] LABS: Urine Culture Reflex No No
[2025-01-17 16:06] LABS: #Basophils 0.03 10x3/uL (0.0-0.2); #Eosinophils 0.04 10x3/uL (0.0-0.7); #Monocytes 0.34 10x3/uL (0.11-0.59); #Neutrophils 3.96 10x3/uL (1.40-6.50); %Basophils 0.5 % (0.0-1.0); %Eosinophils 0.7 % (0.0-10.0); %Lymphocytes 22.4 % (21.0-51.0); %Monocytes 6.0 % (0.0-10.0); %Neutrophils 69.7 % (42.0-75.0); Hematocrit 21.1 % (42.0-52.0); Hemoglobin 6.8 g/dL (14.0-18.0); Mean Corpuscular Hemoglobin 26.1 pg (27.0-31.0); Mean Corpuscular Volume 80.8 fL (78.0-98.0); Platelet Count 160 10x3/uL (130-400); Red Blood Cell (RBC) Count 2.61 mill/uL (4.70-6.10); White Blood Cell (WBC) Count 5.68 10x3/uL (4.8-10.8)
[2025-01-17 16:31] LABS: ALT (SGPT) 18 U/L (Less than 45); AST (SGOT) 40 U/L (11-34); Albumin 3.1 g/dL (3.1-4.5); Alkaline Phosphatase 79 U/L (40-110); Anion Gap 13 mmol/L (10-20); BUN (Urea Nitrogen) 17 mg/dL (8.4-25.7); Bilirubin, Total 0.8 mg/dL (0.3-1.2); Calc. Creatinine Clearance 0 mL/min (70-130); Calcium 8.7 mg/dL (7.8-10.44); Carbon Dioxide 27 mmol/L (22-29); Chloride 99 mmol/L (98-107); Globulin 6.3 g/dL (2.4-3.5); Glucose 64 mg/dL (70-105); Potassium 4.6 mmol/L (3.5-5.1); Sodium 134 mmol/L (136-145)
== END 2025-01-17 16:48 | disposition home or self-care (01) ==
LOC: ERS 13:55
DX: R60.0 Localized edema (principal); I12.0 Hypertensive chronic kidney disease with stage 5 chronic kidney disease or end stage renal disease; N18.6 End stage renal disease; Z99.2 Dependence on renal dialysis
CPT/HCPCS: 80053; 81001; 83605; 83880; 85025; 87077; 87086